=== PATIENT | female | born 1940 | race Caucasian/White ===

== ENCOUNTER 2018-03-25 00:57 | Inpatient (IN) | payer MEDICARE, BC ==
[2018-03-25] MEDS ORDERED: PROVENTIL 2.5 MG/3 ML NEB IH ONE ×2 (01:13→01:24)
--- NOTE | 2018-03-25 01:13 | ERPHSYRPT ---
- History of Present Illness Time Seen by Provider: 03/25/18 01:03 Source: patient, EMS Exam Limitations: no limitations Physician History: The patient is a 77-year-old female with her brought in by ambulance from home where she has had worsening shortness of breath for one week. She uses supplemental oxygen at night. When the ambulance arrived she was satting 90% but hardly able to speak. She complained of chest tightness before calling the ambulance. She states she has been fighting this shortness of breath for the last week. EMS gave her a DuoNeb treatment, albuterol treatment, 2 sublingual nitroglycerin, Lasix 40 mg IV, and Solu-Medrol 125 mg IV. Her chest tightness has completely resolved. Her past medical history is significant for COPD, CHF, HTN, A. fib, and diabetes. Timing/Duration: week(s), gradual onset, worse Activities at Onset: none Severity of Dyspnea-Max: severe Severity of Dyspnea-Current: moderate Possible Cause: occasional episodes (but) Modifying Factors: Improves With: activity, albuterol inhaler, albuterol nebulizer, lying down, oxygen Associated Symptoms: chest pain/discomfort, wheezing, ankle swelling, leg swelling Allergies/Adverse Reactions: No Known Drug Allergies Allergy (Unverified 03/25/18 02:39) - Review of Systems Constitutional: No Fever, No Chills Eyes: No Symptoms Ears, Nose, & Throat: No Symptoms Respiratory: Dyspnea, Dyspnea on Exertion ([place]GADO), Wheezing Cardiac: No Chest Pain, No Edema, No Syncope Abdominal/Gastrointestinal: No Abdominal Pain, No Nausea, No Vomiting, No Diarrhea Genitourinary Symptoms: No Dysuria Musculoskeletal: No Back Pain, No Neck Pain Skin: No Rash Neurological: No Dizziness, No Focal Weakness, No Sensory Changes Psychological: No Symptoms Endocrine: No Symptoms Hematologic/Lymphatic: No Symptoms Immunological/Allergic: No Symptoms All Other Systems: Reviewed and Negative - Nursing Vital Signs Nursing Vital Signs: Initial Vital Signs Pulse Rate 68 03/25/18 01:36 Respiratory Rate 20 03/25/18 01:36 O2 Sat by Pulse Oximetry 93 L 03/25/18 01:36 Pain Scale Pain Intensity 0 - Physical Exam General Appearance: mild distress, alert, obese Eye Exam: PERRL/EOMI Ears, Nose, Throat Exam: hearing grossly normal Neck Exam: normal inspection, supple Respiratory Exam: prolonged expirations, wheezing Cardiovascular/Chest Exam: normal heart sounds, regular rate/rhythm Abdominal/Gastrointestinal Exam: soft, No tenderness, No distention, No mass Rectal Exam: not done Extremity Exam: non-tender, normal range of motion, normal inspection, no calf tenderness, no pedal edema Neurologic Exam: alert, oriented x 3, cooperative, pesticide applicator II-XII nml as tested, sensation nml, No motor deficits Skin Exam: normal color, warm, No dry SpO2 Interpretation: normal Oxygen Delivery: Room Air - Course EKG Interpreted by Me: RATE, Sinus Rhythm, NORMAL AXIS, NORMAL INTERVALS, NORMAL QRS, NORMAL ST-T, Other (no change compared to EKG from 03/04/13.) - Radiology Exams Chest X-ray Interpretation: Interpreted by me, Other (AP chest shows pulmonary congestion, no comps) Ordered Tests: Active Orders 24 hr Category Date Time Status Gum Puller STAT Care 03/25/18 01:15 Active EKG-ER Only STAT Care 03/25/18 01:13 Active IV Insertion STAT Care 03/25/18 01:13 Active Oxygen-ED Only NASAL CANNULA 3 lpm Care 03/25/18 01:13 Active Pulse Oximetry (ED) STAT Care 03/25/18 01:13 Active CHEST 1 VIEW (PORTABLE) Stat Exams 03/25/18 01:30 Taken ARTERIAL BLOOD GASES Stat Lab 03/25/18 01:38 Results CBC W DIFF Stat Lab 03/25/18 01:40 Completed CMP Stat Lab 03/25/18 01:40 Completed Lactic Acid Stat Lab 03/25/18 01:38 Results NT PRO BNP Stat Lab 03/25/18 01:40 Completed TROPONIN Q3H Lab 03/25/18 01:40 Completed TROPONIN Q3H Lab 03/25/18 01:40 Received TROPONIN Q3H Lab 03/25/18 04:15 Ordered TROPONIN Q3H Lab 03/25/18 07:15 Ordered TROPONIN Q3H Lab 03/25/18 13:15 Ordered Respiratory Nebulizer STAT RT 03/25/18 01:15 Completed Respiratory Therapy Assessment DAILY RT 03/25/18 01:36 Completed Medication Summary Discontinued Medications Generic Name Dose Route Start Last Admin Trade Name Freq PRN Reason Stop Dose Admin Albuterol Sulfate 2.5 mg 03/25/18 01:13 03/25/18 01:33 Proventil 2.5 Mg/3 Ml Neb IH 03/25/18 01:14 2.5 mg STAT ONE Administration Albuterol Sulfate Confirm 03/25/18 01:24 Proventil 2.5 Mg/3 Ml Neb Administered 03/25/18 01:25 Dose 2.5 mg IH .STK-MED ONE Lab/Rad Data: Laboratory Result Diagrams 03/25/18 01:40 03/25/18 01:40 Laboratory Results 03/25/18 03/25/18 03/25/18 Range/Units 01:40 01:40 01:40 WBC 12.9 H (4.0-10.5) K/mm3 RBC 4.25 (4.1-5.4) M/mm3 Hgb 11.6 L (12.0-16.0) gm/dl Hct 37.8 (35-47) % MCV 88.9 (78-100) fl MCH 27.2 (26-32) pg MCHC 30.7 L (32-36) g/dl RDW 13.8 (11.5-14.0) % Plt Count 296 (150-450) K/mm3 MPV 10.0 H (6-9.5) fl Gran % 87.8 H (36.0-66.0) % Eos # (Auto) 0.19 (0-0.5) Absolute Lymphs (auto) 0.88 L (1.0-4.6) Absolute Monos (auto) 0.47 (0.0-1.3) Lymphocytes % 6.8 L (24.0-44.0) % Monocytes % 3.7 (0.0-12.0) % Eosinophils % 1.5 (0.00-5.0) % Basophils % 0.2 (0.0-0.4) % Absolute Granulocytes 11.28 H (1.4-6.9) Basophils # 0.03 (0-0.4) Puncture Site pCO2 (35-45) mmHg pO2 (75-100) mmHg Base Excess (-2.0-2.0) O2 Saturation (94-100) g/dF ABG pH (7.35-7.45) ABG HCO3 (22-28) ABG O2 Sat (Measured) (95-100) % Hussain Test A-a Gradient a/A Ratio Hemoglobin Carboxyhemoglobin (0.0-6.9) % THgb Methemoglobin (1.4-1.5) % Potassium 4.3 (3.5-5.1) Temperature C POC O2 Flow Rate % Sodium 140 (137-145) mmol/L Chloride 96 L (98-107) mmol/L Carbon Dioxide 35 H (22-30) mmol/L Anion Gap 13.2 (5-15) MEQ/L BUN 23 H (7-17) mg/dL Creatinine 0.94 (0.52-1.04) mg/dL Estimated GFR > 60.0 ML/MIN Glucose 199 H (74-106) mg/dL Lactic Acid (0.4-2.0) Calcium 9.7 (8.4-10.2) mg/dL Total Bilirubin 0.60 (0.2-1.3) mg/dL AST 16 (14-36) U/L ALT 13 (0-35) U/L Alkaline Phosphatase 45 (38-126) U/L Troponin I < 0.012 (0.000-0.034) ng/mL NT-Pro-B Natriuret Pep 3410 H (0-1800) pg/mL Serum Total Protein 6.6 (6.3-8.2) g/dL Albumin 4.1 (3.5-5.0) g/dL 03/25/18 Range/Units 01:38 WBC (4.0-10.5) K/mm3 RBC (4.1-5.4) M/mm3 Hgb (12.0-16.0) gm/dl Hct (35-47) % MCV (78-100) fl MCH (26-32) pg MCHC (32-36) g/dl RDW (11.5-14.0) % Plt Count (150-450) K/mm3 MPV (6-9.5) fl Gran % (36.0-66.0) % Eos # (Auto) (0-0.5) Absolute Lymphs (auto) (1.0-4.6) Absolute Monos (auto) (0.0-1.3) Lymphocytes % (24.0-44.0) % Monocytes % (0.0-12.0) % Eosinophils % (0.00-5.0) % Basophils % (0.0-0.4) % Absolute Granulocytes (1.4-6.9) Basophils # (0-0.4) Puncture Site Pending pCO2 59 H (35-45) mmHg pO2 67 L (75-100) mmHg Base Excess 12.6 H (-2.0-2.0) O2 Saturation 92.3 L (94-100) g/dF ABG pH 7.43 (7.35-7.45) ABG HCO3 39.2 H* (22-28) ABG O2 Sat (Measured) 95.8 (95-100) % Hussain Test Pending A-a Gradient 59 a/A Ratio 0.53 Hemoglobin 12.0 Carboxyhemoglobin 2.9 (0.0-6.9) % THgb Methemoglobin 0.8 L (1.4-1.5) % Potassium 4.1 (3.5-5.1) Temperature 37.0 C POC O2 Flow Rate 28 % Sodium (137-145) mmol/L Chloride (98-107) mmol/L Carbon Dioxide (22-30) mmol/L Anion Gap (5-15) MEQ/L BUN (7-17) mg/dL Creatinine (0.52-1.04) mg/dL Estimated GFR ML/MIN Glucose (74-106) mg/dL Lactic Acid 1.2 (0.4-2.0) Calcium (8.4-10.2) mg/dL Total Bilirubin (0.2-1.3) mg/dL AST (14-36) U/L ALT (0-35) U/L Alkaline Phosphatase (38-126) U/L Troponin I (0.000-0.034) ng/mL NT-Pro-B Natriuret Pep (0-1800) pg/mL Serum Total Protein (6.3-8.2) g/dL Albumin (3.5-5.0) g/dL - Progress Progress: improved Air Movement: fair Blood Culture(s) Obtained: Yes Antibiotics given: Yes Discussed with : El Will see patient in: hospital (full admit) Counseled pt/family regarding: lab results, diagnosis, rad results - Departure Time of Disposition: 02:38 Departure Disposition: Home Clinical Impression: CHF (congestive heart failure) Condition: Good Critical Care Time: No Referrals: ADA TOBIN [Primary Care Provider] - Instructions: Heart Failure
[2018-03-25 01:55] LABS: BASOPHIL % 0.2 % (0.0-0.4); Basophil (Absolute #) 0.03 (0-0.4); Eosinophil % 1.5 % (0.00-5.0); Eosinophil (Absolute #) 0.19 (0-0.5); Granulocyte Absolute (ANC) 11.28 (1.4-6.9); Granulocytes % 87.8 % (36.0-66.0); Hematocrit 37.8 % (35-47); Hemoglobin 11.6 gm/dl (12.0-16.0); Lymphocyte (Absolute #) 0.88 (1.0-4.6); Lymphocytes % 6.8 % (24.0-44.0); Mean Cell Volume 88.9 fl (78-100); Mean Corpuscular Hgb Concent. 30.7 g/dl (32-36); Monocyte (Absolute #) 0.47 (0.0-1.3); Monocytes % 3.7 % (0.0-12.0); Platelet Count 296 K/mm3 (150-450); Red Blood Count 4.25 M/mm3 (4.1-5.4); Red Cell Distribution Width 13.8 % (11.5-14.0); White Blood Count 12.9 K/mm3 (4.0-10.5)
[2018-03-25 01:57] LABS: A-aADO2 59; ABG POTASSIUM 4.1 (3.5-5.1); ARTERIAL BLD GAS O2 SATURATION 95.8 % (95-100); ARTERIAL BLOOD GAS BASE EXCESS 12.6 (-2.0-2.0); ARTERIAL BLOOD GAS FIO2 28 %; ARTERIAL BLOOD GAS PCO2 59 mmHg (35-45); ARTERIAL BLOOD GAS PO2 67 mmHg (75-100); ARTERIAL BLOOD GAS pH 7.43 (7.35-7.45); CARBOXYHEMOGLOBIN 2.9 % THgb (0.0-6.9); HCO3- 39.2 (22-28); HGB O2 SAT 92.3 g/dF (94-100); Lactic Acid 1.2 (0.4-2.0); Methhemoglobin 0.8 % (1.4-1.5); paO2 pAO1 0.53
[2018-03-25 01:59] LABS: Mean Corpuscular Hemoglobin 27.2 pg (26-32)
[2018-03-25 02:26] LABS: ALBUMIN 4.1 g/dL (3.5-5.0); ALKALINE PHOSPHATASE 45 U/L (38-126); ANION GAP 13.2 MEQ/L (5-15); BLOOD UREA NITROGEN 23 mg/dL (7-17); CHLORIDE 96 mmol/L (98-107); Calcium 9.7 mg/dL (8.4-10.2); Carbon Dioxide 35 mmol/L (22-30); Creatinine 1 0.94 mg/dL (0.52-1.04); Glucose 199 mg/dL (74-106); NT PRO BNP 3410 pg/mL (0-1800); Potassium 4.3 mmol/L (3.5-5.1); SGOT/AST 16 U/L (14-36); SGPT/ALT 13 U/L (0-35); SODIUM 140 mmol/L (137-145); Total Protein 6.6 g/dL (6.3-8.2)
[2018-03-25] MEDS ORDERED: ROCEPHIN 1 Gm-D5w 50 ml Bag** 1 G/50 ML IVPB IV STA (02:38)
[2018-03-25] MEDS ORDERED: ROCEPHIN 1 Gm-D5w 50 ml Bag** 1 G/50 ML IVPB IV ONE (02:43)
[2018-03-25] MEDS ORDERED: TYLENOL 325 MG PO PRN (03:41)
[2018-03-25] MEDS ORDERED: Zofran 4 MG/2 ML VIAL IV PRN (03:41)
[2018-03-25] MEDS ORDERED: DUONEB 0.5-3 MG/3 ml Neb IH SCH (03:41)
[2018-03-25] MEDS ORDERED: PROVENTIL 2.5 MG/3 ML NEB IH SCH (03:41)
[2018-03-25] MEDS ORDERED: PROVENTIL 2.5 MG/3 ML NEB IH PRN (04:11)
[2018-03-25 04:47] LABS: Hematocrit 38.1 % (35-47); Hemoglobin 11.6 gm/dl (12.0-16.0); Mean Cell Volume 89.4 fl (78-100); Mean Corpuscular Hemoglobin 27.2 pg (26-32); Mean Corpuscular Hgb Concent. 30.4 g/dl (32-36); Mean Platelet Volume 9.9 fl (6-9.5); Platelet Count 269 K/mm3 (150-450); Red Blood Count 4.26 M/mm3 (4.1-5.4); Red Cell Distribution Width 13.7 % (11.5-14.0)
[2018-03-25 05:38] LABS: ANION GAP 14.2 MEQ/L (5-15); BLOOD UREA NITROGEN 24 mg/dL (7-17); CHLORIDE 94 mmol/L (98-107); Calcium 9.7 mg/dL (8.4-10.2); Carbon Dioxide 36 mmol/L (22-30); Creatinine 1 0.94 mg/dL (0.52-1.04); Glucose 230 mg/dL (74-106); Potassium 4.4 mmol/L (3.5-5.1); SODIUM 139 mmol/L (137-145)
[2018-03-25] MEDS: solu-MEDROL 125 MG IV SCH ×4 (05:49→23:34)
[2018-03-25] MEDS: Zithromax 500 MG/ 250 ML NaCl Premix 500 MG/250 ML IVPB IV SCH (06:37)
[2018-03-25] MEDS ORDERED: Spiriva 18 Mcg/Cap Inhaler IH ONE (08:47)
--- NOTE | 2018-03-25 09:13 | XRAY ---
Indication: Chest pain. Short of breath. Comparison: None Portable chest underinflated accentuating the cardiopulmonary structures with bilateral mid to lower lung infiltrates versus atelectasis. Bony thorax intact with mild osteopenia, degenerative changes, and lower thoracic kyphoplasty.
--- NOTE | 2018-03-25 09:18 | PCM.HP ---
History of Present Illness - Chief Complaint Chief Complaint: CHF History of Present Illness: is a 77 year old female with CHF and COPD on home O2 at 2L who came in to ER with SOB by ambulance last night. She saw me in office this week with increased LE edema and was supposed to take 80mg lasix (up from 40mg daily) for 3d. She did not, since she had some appointments in town, then she started feeling progressively worse. She cannot walk to the bathroom without being short of breath. In ER, her BNP was elevated over 3,000 and her lung XR looked congested. Unable to discern any infiltrate so she was also started on rocephin and zithromax. Given IV solumedrol and lasix in the ambulance. She told me she is supposed to wear a CPAP machine but she doesn't want to because it messes up her hair. - Review of Systems Constitutional: Fatigue, Weakness, No Fever Respiratory: Cough, Short Of Breath Cardiac: Edema Genitourinary Symptoms: Frequency Musculoskeletal: Arthralgias, Back Pain (recent rib fx) Psychological: Anxiety All Other Systems: Reviewed and Negative Medications & Allergies Home Medications: Home Medication List Amlodipine Besylate 5 mg [Norvasc 5 mg] 5 mg PO HS 03/25/18 [History Confirmed 03/25/18] Apixaban [Eliquis] 5 mg PO BID 03/25/18 [History Confirmed 03/25/18] Atenolol 50 mg [Tenormin 50 mg] 50 mg PO DAILY 03/25/18 [History Confirmed 03/25/18] Cholecalciferol (Vitamin D3) [Vitamin D3] 1,000 unit PO DAILY 03/25/18 [History Confirmed 03/25/18] Escitalopram Oxalate 10 mg [Lexapro 10 MG] 20 mg PO DAILY 03/25/18 [History Confirmed 03/25/18] Fenofibric Acid (Choline) [Fenofibric Acid] 1 tab PO HS 03/25/18 [History Confirmed 03/25/18] Furosemide 40 mg [Lasix 40 MG] 40 mg PO DAILY 03/25/18 [History Confirmed 03/25/18] Lisinopril 20 mg [Zestril 20 MG] 20 mg PO DAILY 03/25/18 [History Confirmed 03/25/18] Magnesium Oxide 400 mg [Mag-Ox 400] 1 tab PO HS 03/25/18 [History Confirmed 03/25/18] Metformin HCl Xr 500 mg [Glucophage XR 500 MG] 1 tab PO DAILY 03/25/18 [ History Confirmed 03/25/18] Potassium Chloride 10 Meq Tab* [Klor Con 10 MEQ] 2 tablet PO DAILY 03/25/18 [ History Confirmed 03/25/18] Simvastatin 40 mg [Zocor 40 mg] 1 tablet PO HS 03/25/18 [History Confirmed 03/25] Allergies/Adverse Reactions: Allergies Allergy/AdvReac Type Severity Reaction Status Date / Time No Known Drug Allergies Allergy Verified 03/25/18 03:55 - Past Medical History Past Medical History: Yes Neurological History: Peripheral Neuropathy ENT History: Cataracts Cardiac History: Arrhythmia, Congestive Heart Failure, High Cholesterol, Hypertension Respiratory History: CHF, COPD Endocrine Medical History: Diabetes Type II Musculoskelatal History: Fractures, Osteoporosis GI Medical History: No Pertinent History History: No Pertinent History Pyscho-Social History: No Pertinent History Reproductive Disorders: No Pertinent History - Female History Hx Last Menstrual Period: menopausal - Past Surgical History Past Surgical History: Yes Neuro Surgical History: No Pertinent History Cardiac History: No Pertinent History Respiratory Surgery: No Pertinent History GI Surgical History: Cholecystectomy, Hernia Repair Genitourinary Surgical Hx: Other Musculskeletal Surgical Hx: Orthopedic Surgery Female Surgical History: Section Other Surgical History: back surgery; broken ribs with cement; Left wrist surgery; bladder tacted up - Social History Smoking Status: Never smoker Exposure to second hand smoke: Yes (hx of exposure- not) Alcohol: None Drug Use: none - Physical Exam Vital Signs: Vital Signs - 24 hr Temp Pulse Resp BP Pulse Ox 03/25/18 07:53 98 F 74 24 138/62 93 L 03/25/18 04:12 98.5 F 67 26 H 135/60 92 L 03/25/18 03:20 69 20 131/60 93 L 03/25/18 02:40 25 H 92 L 03/25/18 02:01 98.0 F 69 21 128/61 93 L 03/25/18 01:36 68 20 93 L Oxygen-Last 24 hours O2 Percentage 4 Liters = 36% O2 Percentage 4 Liters = 36% O2 Percentage 3 Liters = 32% O2 Percentage 3 Liters = 32% O2 Percentage 3 Liters = 32% O2 Percentage 3 Liters = 32% General Appearance: no apparent distress, alert Neurologic Exam: oriented x 3, cooperative Eye Exam: eyes nml inspection Ears, Nose, Throat Exam: moist mucous membranes Neck Exam: normal inspection, non-tender, No lymphadenopathy Respiratory Exam: diminished breath sounds, prolonged expirations, No crackles/ rales, No rhonchi, No wheezing Cardiovascular Exam: regular rate/rhythm, normal heart sounds, No murmur Gastrointestinal/Abdomen Exam: soft, normal bowel sounds, No tenderness, No distention, No mass, No guarding Back Exam: No CVA tenderness Extremity Exam: pedal edema, swelling (2+ pretibial edema bilat) Skin Exam: normal color, warm, dry, No rash Results - Labs Lab/Micro Results: Lab Results-Last 24 Hours 03/25/18 03/25/18 03/25/18 Range/Units 01:38 01:40 01:40 WBC 12.9 H (4.0-10.5) K/mm3 RBC 4.25 (4.1-5.4) M/mm3 Hgb 11.6 L (12.0-16.0) gm/dl Hct 37.8 (35-47) % MCV 88.9 (78-100) fl MCH 27.2 (26-32) pg MCHC 30.7 L (32-36) g/dl RDW 13.8 (11.5-14.0) % Plt Count 296 (150-450) K/mm3 MPV 10.0 H (6-9.5) fl Gran % 87.8 H (36.0-66.0) % Eos # (Auto) 0.19 (0-0.5) Absolute Lymphs (auto) 0.88 L (1.0-4.6) Absolute Monos (auto) 0.47 (0.0-1.3) Lymphocytes % 6.8 L (24.0-44.0) % Monocytes % 3.7 (0.0-12.0) % Eosinophils % 1.5 (0.00-5.0) % Basophils % 0.2 (0.0-0.4) % Absolute Granulocytes 11.28 H (1.4-6.9) Basophils # 0.03 (0-0.4) Puncture Site Pending pCO2 59 H (35-45) mmHg pO2 67 L (75-100) mmHg Base Excess 12.6 H (-2.0-2.0) O2 Saturation 92.3 L (94-100) g/dF ABG pH 7.43 (7.35-7.45) ABG HCO3 39.2 H* (22-28) ABG O2 Sat (Measured) 95.8 (95-100) % Hussain Test Pending A-a Gradient 59 a/A Ratio 0.53 Hemoglobin 12.0 Carboxyhemoglobin 2.9 (0.0-6.9) % THgb Methemoglobin 0.8 L (1.4-1.5) % Potassium 4.1 4.3 (3.5-5.1) Temperature 37.0 C POC O2 Flow Rate 28 % Sodium 140 (137-145) mmol/L Chloride 96 L (98-107) mmol/L Carbon Dioxide 35 H (22-30) mmol/L Anion Gap 13.2 (5-15) MEQ/L BUN 23 H (7-17) mg/dL Creatinine 0.94 (0.52-1.04) mg/dL Estimated GFR > 60.0 ML/MIN Glucose 199 H (74-106) mg/dL Lactic Acid 1.2 (0.4-2.0) Calcium 9.7 (8.4-10.2) mg/dL Total Bilirubin 0.60 (0.2-1.3) mg/dL AST 16 (14-36) U/L ALT 13 (0-35) U/L Alkaline Phosphatase 45 (38-126) U/L Troponin I (0.000-0.034) ng/mL NT-Pro-B Natriuret Pep 3410 H (0-1800) pg/mL Serum Total Protein 6.6 (6.3-8.2) g/dL Albumin 4.1 (3.5-5.0) g/dL 03/25/18 03/25/18 03/25/18 Range/Units 01:40 04:35 04:35 WBC 12.0 H (4.0-10.5) K/mm3 RBC 4.26 (4.1-5.4) M/mm3 Hgb 11.6 L (12.0-16.0) gm/dl Hct 38.1 (35-47) % MCV 89.4 (78-100) fl MCH 27.2 (26-32) pg MCHC 30.4 L (32-36) g/dl RDW 13.7 (11.5-14.0) % Plt Count 269 (150-450) K/mm3 MPV 9.9 H (6-9.5) fl Gran % (36.0-66.0) % Eos # (Auto) (0-0.5) Absolute Lymphs (auto) (1.0-4.6) Absolute Monos (auto) (0.0-1.3) Lymphocytes % (24.0-44.0) % Monocytes % (0.0-12.0) % Eosinophils % (0.00-5.0) % Basophils % (0.0-0.4) % Absolute Granulocytes (1.4-6.9) Basophils # (0-0.4) Puncture Site pCO2 (35-45) mmHg pO2 (75-100) mmHg Base Excess (-2.0-2.0) O2 Saturation (94-100) g/dF ABG pH (7.35-7.45) ABG HCO3 (22-28) ABG O2 Sat (Measured) (95-100) % Hussain Test A-a Gradient a/A Ratio Hemoglobin Carboxyhemoglobin (0.0-6.9) % THgb Methemoglobin (1.4-1.5) % Potassium (3.5-5.1) Temperature C POC O2 Flow Rate % Sodium (137-145) mmol/L Chloride (98-107) mmol/L Carbon Dioxide (22-30) mmol/L Anion Gap (5-15) MEQ/L BUN (7-17) mg/dL Creatinine (0.52-1.04) mg/dL Estimated GFR ML/MIN Glucose (74-106) mg/dL Lactic Acid (0.4-2.0) Calcium (8.4-10.2) mg/dL Total Bilirubin (0.2-1.3) mg/dL AST (14-36) U/L ALT (0-35) U/L Alkaline Phosphatase (38-126) U/L Troponin I < 0.012 < 0.012 (0.000-0.034) ng/mL NT-Pro-B Natriuret Pep (0-1800) pg/mL Serum Total Protein (6.3-8.2) g/dL Albumin (3.5-5.0) g/dL 03/25/18 03/25/18 Range/Units 04:35 07:02 WBC (4.0-10.5) K/mm3 RBC (4.1-5.4) M/mm3 Hgb (12.0-16.0) gm/dl Hct (35-47) % MCV (78-100) fl MCH (26-32) pg MCHC (32-36) g/dl RDW (11.5-14.0) % Plt Count (150-450) K/mm3 MPV (6-9.5) fl Gran % (36.0-66.0) % Eos # (Auto) (0-0.5) Absolute Lymphs (auto) (1.0-4.6) Absolute Monos (auto) (0.0-1.3) Lymphocytes % (24.0-44.0) % Monocytes % (0.0-12.0) % Eosinophils % (0.00-5.0) % Basophils % (0.0-0.4) % Absolute Granulocytes (1.4-6.9) Basophils # (0-0.4) Puncture Site pCO2 (35-45) mmHg pO2 (75-100) mmHg Base Excess (-2.0-2.0) O2 Saturation (94-100) g/dF ABG pH (7.35-7.45) ABG HCO3 (22-28) ABG O2 Sat (Measured) (95-100) % Hussain Test A-a Gradient a/A Ratio Hemoglobin Carboxyhemoglobin (0.0-6.9) % THgb Methemoglobin (1.4-1.5) % Potassium 4.4 (3.5-5.1) Temperature C POC O2 Flow Rate % Sodium 139 (137-145) mmol/L Chloride 94 L (98-107) mmol/L Carbon Dioxide 36 H (22-30) mmol/L Anion Gap 14.2 (5-15) MEQ/L BUN 24 H (7-17) mg/dL Creatinine 0.94 (0.52-1.04) mg/dL Estimated GFR > 60.0 ML/MIN Glucose 230 H (74-106) mg/dL Lactic Acid (0.4-2.0) Calcium 9.7 (8.4-10.2) mg/dL Total Bilirubin (0.2-1.3) mg/dL AST (14-36) U/L ALT (0-35) U/L Alkaline Phosphatase (38-126) U/L Troponin I < 0.012 (0.000-0.034) ng/mL NT-Pro-B Natriuret Pep (0-1800) pg/mL Serum Total Protein (6.3-8.2) g/dL Albumin (3.5-5.0) g/dL - Radiology Impressions Radiology Exams & Impressions: Radiology Procedures Category Date Time Status CHEST 1 VIEW (PORTABLE) Stat Exams 03/25/18 01:30 Taken CHEST 2 VIEWS (PA AND LAT) Routine Exams 03/26/18 Ordered - Other Procedures and Tests Respiratory Therapy 03/25/18 03:41 Oxygen NASAL CANNULA 3 lpm 03/25/18 04:40 RT Screen per Nursing Assess Assessment/Plan (1) CHF exacerbation Current Visit: Yes Status: Acute Assessment & Plan: We spoke at length about avoiding salt. and daughter are on board. Dietary consult today for same. I advised she should plan to stay through the weekend, particularly in light of her non compliance. Code(s): I50.9 - HEART FAILURE, UNSPECIFIED (2) COPD exacerbation Current Visit: Yes Status: Acute Assessment & Plan: On IV rocephin and zithromax. On 4L O2 (home dose 2L) Code(s): J44.1 - CHRONIC OBSTRUCTIVE PULMONARY DISEASE W (ACUTE) EXACERBATION (3) Obstructive sleep apnea Current Visit: Yes Status: Acute Assessment & Plan: Apparently, she has not had a cpap machine for years. will need OP sleep study. Code(s): G47.33 - OBSTRUCTIVE SLEEP APNEA (ADULT) (PEDIATRIC) (4) Diabetes mellitus Current Visit: Yes Status: Chronic Qualifiers: Diabetes mellitus type: type 2 Diabetes mellitus nursing home insulin use: without regional intermodal truck driver use Diabetes mellitus complication status: without complication Qualified Code(s): E11.9 - Type 2 diabetes mellitus without complications Code(s): E11.9 - TYPE 2 DIABETES MELLITUS WITHOUT COMPLICATIONS (5) Atrial fibrillation Current Visit: Yes Status: Chronic Qualifiers: Atrial fibrillation type: unspecified Qualified Code(s): I48.91 - Unspecified atrial fibrillation Assessment & Plan: On Eliquis Code(s): I48.91 - UNSPECIFIED ATRIAL FIBRILLATION
[2018-03-25] MEDS ORDERED: NON-FORMULARY ITEM (Cholecalciferol (Vitamin D3) [Vitamin D3] 1,000 UNIT) PO SCH (10:00)
[2018-03-25] MEDS ORDERED: Lasix 40 MG/4 ML IV SCH (10:00)
[2018-03-25] MEDS ORDERED: NON-FORMULARY ITEM (Apixaban [Eliquis] 5 MG) PO SCH (10:00)
[2018-03-25] MEDS: Lexapro 10 MG PO SCH (10:55)
[2018-03-25] MEDS: ELIQUIS 2.5 MG TABLET PO SCH ×2 (10:56→21:58)
[2018-03-25] MEDS: Zestril 20 MG PO SCH (10:57)
[2018-03-25] MEDS: TENORMIN 50 MG PO SCH (10:57)
[2018-03-25] MEDS: Klor Con 10 MEQ PO SCH (10:57)
[2018-03-25] MEDS: Lasix 40 MG/4 ML IV SCH (10:58)
[2018-03-25] MEDS: VITAMIN D PO SCH (11:06)
[2018-03-25] MEDS: NovoLOG Insulin SQ PRN ×3 (11:44→21:59)
[2018-03-25] MEDS: PATIENT OWN MEDICATION IH SCH (19:40)
[2018-03-25] MEDS: ROCEPHIN 1 Gm-D5w 50 ml Bag** 1 G/50 ML IVPB IV SCH (21:58)
[2018-03-25] MEDS: MAG-OX 400 PO SCH (21:58)
[2018-03-25] MEDS: Tricor 145 MG PO SCH (21:58)
[2018-03-25] MEDS: ZOCOR 20MG PO SCH (21:58)
[2018-03-25] MEDS: NORVASC 5 MG PO SCH (21:58)
[2018-03-25] MEDS: Tussionex Pennkinetic Susp PO PRN (21:59)
[2018-03-25] MEDS ORDERED: SIMVASTATIN 40 MG PO SCH (22:00)
[2018-03-25] MEDS ORDERED: FENOFIBRIC ACID PO SCH (22:00)
[2018-03-26 05:15] LABS: ABG SITE rr; ALLEN TEST OK? y
[2018-03-26 05:51] LABS: Granulocyte Absolute (ANC) 10.07 (1.4-6.9); Hemoglobin 11.1 gm/dl (12.0-16.0); Mean Cell Volume 88.7 fl (78-100); Mean Corpuscular Hemoglobin 27.3 pg (26-32); Mean Corpuscular Hgb Concent. 30.8 g/dl (32-36); Platelet Count 273 K/mm3 (150-450); Red Blood Count 4.06 M/mm3 (4.1-5.4); Red Cell Distribution Width 13.8 % (11.5-14.0); White Blood Count 10.6 K/mm3 (4.0-10.5)
[2018-03-26 06:13] LABS: ANION GAP 14.1 MEQ/L (5-15); Creatinine 1 1.28 mg/dL (0.52-1.04); Potassium 4.6 mmol/L (3.5-5.1)
[2018-03-26] MEDS: solu-MEDROL 125 MG IV SCH ×3 (06:17→21:35)
[2018-03-26] MEDS: NovoLOG Insulin SQ PRN ×2 (08:04→12:08)
[2018-03-26] MEDS: Spiriva 18 Mcg/Cap Inhaler IH SCH ×2 (08:08→09:00)
[2018-03-26] MEDS: PATIENT OWN MEDICATION IH SCH ×2 (08:09→18:40)
[2018-03-26 08:41] LABS: Slide Review 1 YES
[2018-03-26] MEDS: Lexapro 10 MG PO SCH (10:40)
[2018-03-26] MEDS: Zithromax 500 MG/ 250 ML NaCl Premix 500 MG/250 ML IVPB IV SCH (10:40)
[2018-03-26] MEDS: BUMEX 1 MG IV SCH ×2 (10:40→21:36)
[2018-03-26] MEDS: ELIQUIS 2.5 MG TABLET PO SCH ×2 (10:40→21:36)
[2018-03-26] MEDS: TENORMIN 50 MG PO SCH (10:40)
[2018-03-26] MEDS: VITAMIN D PO SCH (10:41)
[2018-03-26] MEDS: Zestril 20 MG PO SCH (10:41)
[2018-03-26] MEDS: Klor Con 10 MEQ PO SCH (10:41)
[2018-03-26] MEDS: Lantus Insulin SQ SCH (10:42)
[2018-03-26] MEDS: Lasix 40 MG/4 ML IV SCH (10:57)
[2018-03-26] MEDS ORDERED: PATIENT OWN MEDICATION IM ONE (11:15)
--- NOTE | 2018-03-26 13:03 | PCM.NOTE ---
Date and Time: 03/26/18 5812 Subjective Assessment: Patient reports she has not had much urine output with the IV lasix. She does have a cruz in and wants to keep this. She reports that her appetite has not been as good. She usually wears 2 L of oxygen at night. Dr. Bob is her health care aide.She has copd but no hx of smoking. She takes Eliquis for atrial fib. - Review of Systems Constitutional: No Symptoms Eyes: No Symptoms Ears, Nose, & Throat: No Symptoms Respiratory: Cough, Other (cough medication last night helped with cough) Cardiac: Edema Abdominal/Gastrointestinal: No Symptoms Genitourinary Symptoms: No Symptoms Musculoskeletal: No Symptoms Skin: No Symptoms Objective Exam General Appearance: no apparent distress, alert, other (on oxygen 4L by nasal cannula) Neurologic Exam: alert, cooperative, normal mood/affect Skin Exam: normal color, warm, dry, No rash Respiratory Exam: normal breath sounds, lungs clear, No crackles/rales, No rhonchi, No wheezing Cardiovascular Exam: regular rate/rhythm, normal heart sounds, No murmur, No friction rub, No gallop Gastrointestinal/Abdomen Exam: soft, normal bowel sounds, No tenderness, No distention Extremity Exam: other (+1 edema to mid shins, no c/c) OBJECTIVE DATA Vital Signs: Vital Signs - 24 hr Temp Pulse Resp BP Pulse Ox 03/26/18 12:00 97.5 F 58 L 20 128/57 97 03/26/18 10:40 63 03/26/18 08:09 66 20 95 03/26/18 08:00 98.2 F 61 19 147/65 95 03/26/18 04:00 98.8 F 53 L 32 H 100/65 94 L 03/26/18 00:00 99.0 F 73 24 124/67 97 03/25/18 21:56 58 L 22 96 03/25/18 20:00 98.6 F 64 19 146/65 97 03/25/18 16:00 98.7 F 64 22 121/60 98 Oxygen-Last 24 hours O2 Percentage 2 Liters = 28% O2 Percentage 4 Liters = 36% O2 Percentage 4 Liters = 36% O2 Percentage 4 Liters = 36% O2 Percentage 4 Liters = 36% Pain Assessment - Last Documented Pain Intensity 0 Pain Scale Used 0-10 Pain Scale Intake and Output: Intake & Output 03/24/18 03/25/18 03/26/18 03/27/18 06:59 06:59 06:59 06:59 Intake Total 100 680 Output Total 200 1025 Balance -100 -345 Weight 77.7 kg 77.1 kg Lab Results: Accuchecks Date 03/25/18 Time 16:30 Accucheck Value: 321 Accucheck Value: 214 Accucheck Value: 279 Accucheck Value: 253 Lab Results-Last 24 Hours 03/25/18 03/25/18 03/26/18 Range/Units 01:38 13:27 05:44 WBC 10.6 H (4.0-10.5) K/mm3 RBC 4.06 L (4.1-5.4) M/mm3 Hgb 11.1 L (12.0-16.0) gm/dl Hct 36.0 (35-47) % MCV 88.7 (78-100) fl MCH 27.3 (26-32) pg MCHC 30.8 L (32-36) g/dl RDW 13.8 (11.5-14.0) % Plt Count 273 (150-450) K/mm3 MPV 10.0 H (6-9.5) fl Absolute Granulocytes 10.07 H (1.4-6.9) Puncture Site rr Hussain Test y Sodium (137-145) mmol/L Potassium (3.5-5.1) mmol/L Chloride (98-107) mmol/L Carbon Dioxide (22-30) mmol/L Anion Gap (5-15) MEQ/L BUN (7-17) mg/dL Creatinine (0.52-1.04) mg/dL Estimated GFR ML/MIN Glucose (74-106) mg/dL Calcium (8.4-10.2) mg/dL Troponin I < 0.012 (0.000-0.034) ng/mL NT-Pro-B Natriuret Pep (0-1800) pg/mL Slides for Path Review YES 03/26/18 Range/Units 05:44 WBC (4.0-10.5) K/mm3 RBC (4.1-5.4) M/mm3 Hgb (12.0-16.0) gm/dl Hct (35-47) % MCV (78-100) fl MCH (26-32) pg MCHC (32-36) g/dl RDW (11.5-14.0) % Plt Count (150-450) K/mm3 MPV (6-9.5) fl Absolute Granulocytes (1.4-6.9) Puncture Site Hussain Test Sodium 137 (137-145) mmol/L Potassium 4.6 (3.5-5.1) mmol/L Chloride 90 L (98-107) mmol/L Carbon Dioxide 38 H (22-30) mmol/L Anion Gap 14.1 (5-15) MEQ/L BUN 39 H (7-17) mg/dL Creatinine 1.28 H (0.52-1.04) mg/dL Estimated GFR 42.9 ML/MIN Glucose 214 H (74-106) mg/dL Calcium 9.0 (8.4-10.2) mg/dL Troponin I (0.000-0.034) ng/mL NT-Pro-B Natriuret Pep 4850 H (0-1800) pg/mL Slides for Path Review Radiology Exams: Radiology Procedures Category Date Time Status CHEST 1 VIEW (PORTABLE) Stat Exams 03/25/18 01:30 Completed CHEST 2 VIEWS (PA AND LAT) Routine Exams 03/26/18 Ordered ECHO W/2D AND DOPPLER [US] Routine Exams 03/25/18 10:44 Taken Multi-Disciplinary Progress Notes: Multi-Disciplinary Progress Notes 03/26/18 11:08 Respiratory Note by Kelly Aguayo 1050 SPO2 4LPM 97%. PER DR WORTHINGTON TRY AND WEAN. DEC TO 2LPM Initialized on 03/26/18 11:08 - END OF NOTE Assessment/Plan (1) CHF exacerbation Current Visit: Yes Status: Acute Assessment & Plan: Echo done yesterday. Her can filling room sweeper, Dr. Arvizu, was consulted today and plans to see her. I am changing her lasix 80 mg daily IV to bumex 1 mg IV q12 hours. Continue to monitor ins and outs and daily weights. Code(s): I50.9 - HEART FAILURE, UNSPECIFIED (2) COPD exacerbation Current Visit: Yes Status: Acute Assessment & Plan: Lungs are clear, will wean steroids and try to wean oxygen. She is on antibiotics. Code(s): J44.1 - CHRONIC OBSTRUCTIVE PULMONARY DISEASE W (ACUTE) EXACERBATION (3) Atrial fibrillation Current Visit: Yes Status: Chronic Qualifiers: Atrial fibrillation type: unspecified Qualified Code(s): I48.91 - Unspecified atrial fibrillation Assessment & Plan: Currently controlled; continue Eliquis. Code(s): I48.91 - UNSPECIFIED ATRIAL FIBRILLATION (4) Diabetes mellitus Current Visit: Yes Status: Chronic Qualifiers: Diabetes mellitus type: type 2 Diabetes mellitus skilled nursing insulin use: without skilled nursing use Diabetes mellitus complication status: without complication Qualified Code(s): E11.9 - Type 2 diabetes mellitus without complications Assessment & Plan: Off of metformin due to hospitalization and blood glucoses high due to steroids so will start lantus 10 units daily. Code(s): E11.9 - TYPE 2 DIABETES MELLITUS WITHOUT COMPLICATIONS (5) Anemia Current Visit: Yes Status: Acute Code(s): D64.9 - ANEMIA, UNSPECIFIED
[2018-03-26] MEDS: ZOCOR 20MG PO SCH (21:35)
[2018-03-26] MEDS: NORVASC 5 MG PO SCH (21:36)
[2018-03-26] MEDS: Tricor 145 MG PO SCH (21:36)
[2018-03-26] MEDS: MAG-OX 400 PO SCH (21:36)
[2018-03-26] MEDS: ROCEPHIN 1 Gm-D5w 50 ml Bag** 1 G/50 ML IVPB IV SCH (21:37)
[2018-03-26] MEDS: Tussionex Pennkinetic Susp PO PRN (21:43)
[2018-03-27 05:44] LABS: Hematocrit 37.3 % (35-47); Hemoglobin 11.5 gm/dl (12.0-16.0); Mean Cell Volume 87.8 fl (78-100); Mean Corpuscular Hgb Concent. 30.8 g/dl (32-36); Mean Platelet Volume 10.2 fl (6-9.5); Platelet Count 304 K/mm3 (150-450); Red Blood Count 4.25 M/mm3 (4.1-5.4); Red Cell Distribution Width 13.9 % (11.5-14.0); White Blood Count 11.2 K/mm3 (4.0-10.5)
[2018-03-27 05:52] LABS: Creatinine 1 1.27 mg/dL (0.52-1.04); Potassium 4.7 mmol/L (3.5-5.1)
[2018-03-27 06:02] LABS: ANION GAP 14.7 MEQ/L (5-15)
[2018-03-27] MEDS: solu-MEDROL 125 MG IV SCH ×3 (06:38→22:19)
[2018-03-27] MEDS: PATIENT OWN MEDICATION IH SCH ×2 (07:14→19:11)
[2018-03-27] MEDS: Spiriva 18 Mcg/Cap Inhaler IH SCH (07:19)
[2018-03-27 07:22] LABS: Lymphocytes 4 % (24-44); Neutrophils 96 % (36.0-66.0); Platelet Estimate NORMAL (NORMAL); Total Cells Counted 100; Toxic Granulation 1+
[2018-03-27] MEDS: Klor Con 10 MEQ PO SCH (09:04)
[2018-03-27] MEDS: ELIQUIS 2.5 MG TABLET PO SCH ×2 (09:04→22:24)
[2018-03-27] MEDS: Zithromax 500 MG/ 250 ML NaCl Premix 500 MG/250 ML IVPB IV SCH (09:04)
[2018-03-27] MEDS: VITAMIN D PO SCH (09:04)
[2018-03-27] MEDS: Lexapro 10 MG PO SCH (09:04)
[2018-03-27] MEDS: TENORMIN 50 MG PO SCH (09:04)
[2018-03-27] MEDS: NovoLOG Insulin SQ PRN ×4 (09:05→22:21)
[2018-03-27] MEDS: BUMEX 1 MG IV SCH ×2 (09:05→22:20)
[2018-03-27] MEDS: Zestril 20 MG PO SCH (09:05)
[2018-03-27] MEDS: Lantus Insulin SQ SCH (09:05)
[2018-03-27] MEDS: Tussionex Pennkinetic Susp PO PRN ×2 (09:07→22:44)
[2018-03-27] MEDS ORDERED: SENOKOT 8.6 MG PO PRN (10:40)
--- NOTE | 2018-03-27 10:45 | PCM.NOTE ---
Date and Time: 03/27/18 1042 Subjective Assessment: She reports she continues to get short of breath earlier. She reports Dr. Arivzu told here that her lungs were the problem. He saw her but his dictated note has not been transcribed yet for me to read. She reports only a small stool. The cough medication is helping with her cough though. She reports trouble doing some of her housework at home and she would like help with this. She reports she thinks she has done cardiopulmonary rehab at [facility] before. - Review of Systems Constitutional: Fatigue Eyes: No Symptoms Ears, Nose, & Throat: No Symptoms Respiratory: Cough, Short Of Breath Cardiac: No Symptoms, Other (chest wall pain) Abdominal/Gastrointestinal: Constipation, No Nausea, No Vomiting, No Diarrhea Genitourinary Symptoms: No Symptoms Skin: Other (mild swelling) Objective Exam General Appearance: no apparent distress, alert, obese Neurologic Exam: alert, cooperative, normal mood/affect Skin Exam: normal color, warm, dry, No rash Respiratory Exam: normal breath sounds, lungs clear, other (distant breath sounds throughout), No crackles/rales, No wheezing Cardiovascular Exam: regular rate/rhythm, normal heart sounds, No murmur, No friction rub, No gallop Gastrointestinal/Abdomen Exam: soft, normal bowel sounds, No tenderness, No distention, No mass Extremity Exam: other (trace edema bilat, no c/c) OBJECTIVE DATA Vital Signs: Vital Signs - 24 hr Temp Pulse Resp BP BP Pulse Ox 03/27/18 09:04 96 H 145/82 03/27/18 08:00 98.7 F 65 18 145/82 96 03/27/18 07:22 66 20 97 03/27/18 04:00 98.1 F 61 19 130/57 96 03/27/18 00:00 98.0 F 62 18 141/66 95 03/26/18 20:00 98.9 F 53 L 17 126/56 97 03/26/18 18:40 76 18 96 03/26/18 16:00 98.2 F 69 18 136/59 95 03/26/18 12:00 97.5 F 58 L 20 128/57 97 Oxygen-Last 24 hours O2 Percentage 3 Liters = 32% O2 Percentage 3 Liters = 32% O2 Percentage 3 Liters = 32% O2 Percentage 3 Liters = 32% O2 Percentage 2 Liters = 28% Pain Assessment - Last Documented Pain Intensity 0 Pain Scale Used 0-10 Pain Scale Intake and Output: Intake & Output 03/25/18 03/26/18 03/27/18 03/28/18 06:59 06:59 06:59 06:59 Intake Total 100 680 360 Output Total 200 1025 1050 Balance -100 -962 -690 Weight 77.7 kg 77.1 kg 73 kg Lab Results: Accuchecks Date 03/27/18 Date 03/26/18 Time 08:00 Time 21:00 Accucheck Value: 201 Accucheck Value: 247 Accucheck Value: 186 Accucheck Value: 321 Lab Results-Last 24 Hours 03/27/18 03/27/18 Range/Units 05:10 05:10 WBC 11.2 H (4.0-10.5) K/mm3 RBC 4.25 (4.1-5.4) M/mm3 Hgb 11.5 L (12.0-16.0) gm/dl Hct 37.3 (35-47) % MCV 87.8 (78-100) fl MCH 27.0 (26-32) pg MCHC 30.8 L (32-36) g/dl RDW 13.9 (11.5-14.0) % Plt Count 304 (150-450) K/mm3 MPV 10.2 H (6-9.5) fl Segmented Neutrophils 96 H (36.0-66.0) % Lymphocytes (Manual) 4 L (24-44) % Toxic Granulation 1+ Platelet Estimate NORMAL (NORMAL) RBC Morphology NORMAL Sodium 137 (137-145) mmol/L Potassium 4.7 (3.5-5.1) mmol/L Chloride 89 L (98-107) mmol/L Carbon Dioxide 38 H (22-30) mmol/L Anion Gap 14.7 (5-15) MEQ/L BUN 52 H (7-17) mg/dL Creatinine 1.27 H (0.52-1.04) mg/dL Estimated GFR 43.3 ML/MIN Glucose 207 H (74-106) mg/dL Calcium 9.0 (8.4-10.2) mg/dL Radiology Exams: Radiology Procedures Category Date Time Status CHEST 2 VIEWS (PA AND LAT) Routine Exams 03/26/18 14:41 Taken ECHO W/2D AND DOPPLER [US] Routine Exams 03/25/18 10:44 Taken Multi-Disciplinary Progress Notes: Multi-Disciplinary Progress Notes 03/26/18 11:08 Respiratory Note by Kelly Aguayo 1050 SPO2 4LPM 97%. PER DR WORTHINGTON TRY AND WEAN. DEC TO 2LPM Initialized on 03/26/18 11:08 - END OF NOTE Assessment/Plan (1) CHF exacerbation Current Visit: Yes Status: Acute Assessment & Plan: Continue bumex; Dr. Arvizu saw her and I appreciate his input. Code(s): I50.9 - HEART FAILURE, UNSPECIFIED (2) COPD exacerbation Current Visit: Yes Status: Acute Assessment & Plan: Continue IV steroid and antibiotics. Code(s): J44.1 - CHRONIC OBSTRUCTIVE PULMONARY DISEASE W (ACUTE) EXACERBATION (3) Atrial fibrillation Current Visit: Yes Status: Chronic Qualifiers: Atrial fibrillation type: unspecified Qualified Code(s): I48.91 - Unspecified atrial fibrillation Code(s): I48.91 - UNSPECIFIED ATRIAL FIBRILLATION (4) Diabetes mellitus Current Visit: Yes Status: Chronic Qualifiers: Diabetes mellitus type: type 2 Diabetes mellitus long-term insulin use: without long-term use Diabetes mellitus complication status: without complication Qualified Code(s): E11.9 - Type 2 diabetes mellitus without complications Assessment & Plan: Lantus started yesterday. Continue with current treatment. Code(s): E11.9 - TYPE 2 DIABETES MELLITUS WITHOUT COMPLICATIONS (5) Anemia Current Visit: Yes Status: Acute Code(s): D64.9 - ANEMIA, UNSPECIFIED
[2018-03-27] MEDS: Miralax Powder 17GM PACKET PO SCH (11:31)
[2018-03-27] MEDS ORDERED: Colace 100 MG PO ONE (18:30)
[2018-03-27] MEDS: Advair Hfa 230/21 Mcg COMMON CANISTER IH SCH (19:22)
[2018-03-27] MEDS: Colace 100 MG PO SCH (22:17)
[2018-03-27] MEDS: ROCEPHIN 1 Gm-D5w 50 ml Bag** 1 G/50 ML IVPB IV SCH (22:21)
[2018-03-27] MEDS: MAG-OX 400 PO SCH (22:24)
[2018-03-27] MEDS: Tricor 145 MG PO SCH (22:25)
[2018-03-27] MEDS: ZOCOR 20MG PO SCH (22:25)
[2018-03-27] MEDS: NORVASC 5 MG PO SCH (22:25)
[2018-03-28 05:31] LABS: BASOPHIL % 0.1 % (0.0-0.4); Basophil (Absolute #) 0.01 (0-0.4); Eosinophil (Absolute #) 0 (0-0.5); Granulocyte Absolute (ANC) 7.86 (1.4-6.9); Granulocytes % 94.7 % (36.0-66.0); Hematocrit 35.7 % (35-47); Hemoglobin 10.9 gm/dl (12.0-16.0); Lymphocyte (Absolute #) 0.28 (1.0-4.6); Lymphocytes % 3.4 % (24.0-44.0); Mean Cell Volume 88.4 fl (78-100); Mean Corpuscular Hgb Concent. 30.5 g/dl (32-36); Mean Platelet Volume 10.1 fl (6-9.5); Monocyte (Absolute #) 0.15 (0.0-1.3); Monocytes % 1.8 % (0.0-12.0); Platelet Count 258 K/mm3 (150-450); Red Blood Count 4.04 M/mm3 (4.1-5.4); Red Cell Distribution Width 13.6 % (11.5-14.0); White Blood Count 8.3 K/mm3 (4.0-10.5)
[2018-03-28 05:41] LABS: Mean Corpuscular Hemoglobin 26.9 pg (26-32)
[2018-03-28 05:46] LABS: Calcium 8.7 mg/dL (8.4-10.2); Creatinine 1 1.24 mg/dL (0.52-1.04); Potassium 4.5 mmol/L (3.5-5.1)
[2018-03-28 06:02] LABS: ANION GAP 11.5 MEQ/L (5-15)
[2018-03-28] MEDS: solu-MEDROL 125 MG IV SCH (06:25)
[2018-03-28 06:32] LABS: Slide Review 1 YES
[2018-03-28] MEDS: Advair Hfa 230/21 Mcg COMMON CANISTER IH SCH (07:03)
[2018-03-28] MEDS: Spiriva 18 Mcg/Cap Inhaler IH SCH (07:03)
[2018-03-28 07:27] VITALS: BP 136/60; O2SAT 99
--- NOTE | 2018-03-28 08:26 | CONS ---
CONSULT DATE: 03/26/2018 BRIEF HISTORY: This is a 77 year-old female who was admitted because of progressive shortness of breath. The patient has been using oxygen at home but apparently is not able to obtain adequate saturation. She started to have some chest discomfort that she describes more of difficulty of breathing. She eventually ended up in the emergency room and subsequently admitted. She was given IV diuretics, steroids, and DuoNeb. The patient has a history of chronic obstructive pulmonary disease associated with moderate to severe pulmonary hypertension. She has had chronic atrial fibrillation for which she is anticoagulated. She has never had a myocardial infarction. CARDIAC RISK FACTORS: Positive for diabetes. Positive for hypertension. She does not smoke. She has history of hyperlipidemia. PAST SURGICAL HISTORY: Appendectomy. Cholecystectomy. Hernia surgery. section. Carpal tunnel surgery. CURRENT MEDICATIONS: Albuterol inhaler, Tussionex, Zofran, amlodipine, apixaban, Atenolol, Bumex, Vitamin D3. REVIEW OF SYSTEMS: PATIENTS TRANSPORTER: No history of stroke or seizure. RESPIRATORY: Chronic obstructive lung disease. Pulmonary hypertension. GI: Reflux symptoms. : Negative for dysuria or hematuria. 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 PERIPHERAL VASCULAR: No history of deep venous thrombosis. Chronically intermittent leg edema. SKIN: She has some rash in the lower extremities. HEMATOLOGY: No blood dyscrasia. SOCIAL HISTORY: She is . She has no significant alcohol intake. PHYSICAL EXAMINATION: Her blood pressure is 120/57, heart rate 65 in atrial fibrillation, respirations about 16. GENERAL: The patient is an elderly female who is alert, obese, who is less short of breath. HEENT: Slightly pale conjunctivae. NECK: No significant JVD. CHEST: The breath sounds are relatively clear with some rhonchi. No wheezing. CARDIAC: Heart tones are variable. The rhythm is atrial fibrillation. There is no audible gallop. ABDOMEN: Obese with normal bowel sounds. EXTREMITIES: There is trace edema. Decreased distal pulses. LAB DATA AND DIAGNOSTIC TESTS: BUN 24, creatinine 0.94. The glomerular filtration rate is greater than 60. Serial electrolytes are normal. Troponin I less than 0.012. ProBNP 3,410. IMPRESSION: In essence her: 1) Shortness of breath is most likely secondary to exacerbation of chronic obstructive pulmonary disease. The right-sided failure is most likely secondary to the pulmonary hypertension related to her chronic obstructive pulmonary disease. I agree with a short course of IV diuretics. 2) Hypertension: Continue current medical regimen. 3) Chronic atrial fibrillation: Continue with anticoagulation. 4) Diabetes. PLAN: I will review her echocardiogram and further recommendations will be made.
--- NOTE | 2018-03-28 08:34 | ECHO ---
Transthoracic echocardiographic examination and color Doppler was done on 03/26/2018. INDICATION: Congestive heart failure, atrial fibrillation. IMPRESSION: 1) NO REGIONAL WALL MOTION ABNORMALITY. ESTIMATED GLOBAL LEFT VENTRICULAR EJECTION FRACTION 60%. 2) MODERATE TRICUSPID REGURGITATION. RIGHT VENTRICULAR SYSTOLIC PRESSURE OF 62 MM OF MERCURY SUGGESTIVE OF MODERATE TO SEVERE PULMONARY HYPERTENSION. 3) MILD MITRAL REGURGITATION. 4) TRACE AORTIC REGURGITATION. 5) LEFT VENTRICULAR HYPERTROPHY. 6) LEFT ATRIAL ENLARGEMENT. 7) MILDLY DILATED RIGHT-SIDED CHAMBERS. 8) MILD PULMONARY INSUFFICIENCY. The left ventricle is visualized and demonstrated adequate motion of all the segments. Estimated global left ventricular ejection fraction around 60%. There is mild left ventricular hypertrophy. The mitral valve is heavily calcified particularly posterior leaflet. There is mild mitral regurgitation. Left atrium is enlarged. The aortic valve is sclerotic. There is no significant gradient across the aortic valve. There is trace aortic regurgitation. Right side chambers are mild to moderately dilated. There is mild tricuspid regurgitation with right ventricular systolic pressure of 62 mm of Mercury suggestive of moderate pulmonary hypertension. The right atrium is also enlarged. There is mild pulmonic insufficiency.
--- NOTE | 2018-03-28 09:02 | PCM.DCORD ---
- Discharge Discharge Date: 03/28/18 Disposition: Home, Self-Care Condition: Good Prescriptions: New Bumetanide 1 mg [Bumex 1 mg] 1 mg PO DAILY #30 tablet Cefdinir 300 mg PO BID #12 capsule Docusate Sodium 100 mg [Colace 100 MG] 100 mg PO BID #60 capsule Prednisone 20 mg [Deltasone 20 mg] 20 mg PO UD #10 tablet Polyethylene Glycol 3350 17 gm [Miralax Powder 17GM PACKET] 17 gm PO DAILY #30 packet Tiotropium Sloan Inhaler [Spiriva 18 Mcg/Cap Inhaler] 1 ea IH DAILY inh Budesonide/Formoterol Fumarate [Symbicort 160-4.5 Mcg Inhaler] 2 puffs IH BID #1 hfa.aer.ad Azithromycin 250 mg [Zithromax 250 MG TABLET] 250 mg PO DAILY #1 tablet Continue Lisinopril 20 mg [Zestril 20 MG] 20 mg PO DAILY Amlodipine Besylate 5 mg [Norvasc 5 mg] 5 mg PO HS Atenolol 50 mg [Tenormin 50 mg] 50 mg PO DAILY Escitalopram Oxalate 10 mg [Lexapro 10 MG] 20 mg PO DAILY Simvastatin 40 mg [Zocor 40 mg] 1 tablet PO HS Potassium Chloride 10 Meq Tab* [Klor Con 10 MEQ] 2 tablet PO DAILY Metformin HCl Xr 500 mg [Glucophage XR 500 MG] 1 tab PO DAILY Magnesium Oxide 400 mg [Mag-Ox 400] 1 tab PO HS Fenofibric Acid (Choline) [Fenofibric Acid] 1 tab PO HS Cholecalciferol (Vitamin D3) [Vitamin D3] 1,000 unit PO DAILY Apixaban [Eliquis] 5 mg PO BID Discontinued Furosemide 40 mg [Lasix 40 MG] 40 mg PO DAILY Follow up with: JOSE REEDER MD [NON-STAFF PHY W/O PRIVILEGES] - 1 Week SHANNON ROME [ACTIVE STAFF] - 1 Week ADA TOBIN [Primary Care Provider] - 04/05/18 10:30 am
[2018-03-28] MEDS: Zithromax 500 MG/ 250 ML NaCl Premix 500 MG/250 ML IVPB IV SCH (09:33)
[2018-03-28] MEDS: ELIQUIS 2.5 MG TABLET PO SCH (09:33)
[2018-03-28] MEDS: Klor Con 10 MEQ PO SCH (09:33)
[2018-03-28] MEDS: Miralax Powder 17GM PACKET PO SCH (09:33)
[2018-03-28] MEDS: Lexapro 10 MG PO SCH (09:33)
[2018-03-28] MEDS: TENORMIN 50 MG PO SCH (09:34)
[2018-03-28] MEDS: Zestril 20 MG PO SCH (09:35)
[2018-03-28] MEDS: Lantus Insulin SQ SCH (09:35)
[2018-03-28] MEDS: VITAMIN D PO SCH (09:35)
[2018-03-28] MEDS: Colace 100 MG PO SCH (09:35)
[2018-03-28] MEDS: BUMEX 1 MG IV SCH (09:38)
[2018-03-28 09:43] VITALS: PULSE 72
[2018-03-28] MEDS ORDERED: Colace 100 MG PO ONE ×2 (11:00→18:30)
[2018-03-28] MEDS: NovoLOG Insulin SQ PRN (12:28)
--- NOTE | 2018-03-30 11:52 | DS ---
DISCHARGE DIAGNOSES: 1) RIGHT-SIDED CONGESTIVE HEART FAILURE EXACERBATION. 2) CHRONIC OBSTRUCTIVE PULMONARY DISEASE EXACERBATION. 3) ATRIAL FIBRILLATION. 4) DIABETES MELLITUS TYPE 2. 5) ANEMIA. 6) PULMONARY HYPERTENSION. DISCHARGE PHYSICAL EXAMINATION: VITALS: Temperature current 98.5F, temperature max 98.5F, heart rate 54 to 72, respiratory rate 18 to 19, blood pressure 123 to 136 over 60 to 63. Discharge weight was 77 kg. Oxygen saturation 97 to 98% on 3 liters nasal cannula. GENERAL: The patient is a pleasant talkative sitting up in bed in no acute distress with oxygen 3 liters by nasal cannula in place. CVS: She has a regular rate and rhythm. No murmurs, gallops or rubs are appreciated. CHEST: Clear to auscultation bilaterally. No crackles or wheezes. ABDOMEN: Soft, nontender, nondistended with normal bowel sounds. EXTREMITIES: No clubbing, cyanosis or edema. She has EREN hose in place. HOSPITAL COURSE: 1) RIGHT-SIDED CONGESTIVE HEART FAILURE EXACERBATION: I changed her from IV Lasix to IV Bumex 1 mg IV daily. She seemed to have good diuresis with this and her symptoms seemed to improve. Dr. Arvizu saw her and read her echocardiogram. He diagnosed her with significant pulmonary hypertension due to the chronic obstructive pulmonary disease. I will have her follow up with Dr. Arvizu as an outpatient. 2) CHRONIC OBSTRUCTIVE PULMONARY DISEASE EXACERBATION: She was continued on IV steroids and IV antibiotics. At the time of discharge I gave her a prescription for one more day of azithromycin to finish a five day course and six days of Omnicef to finish a ten day course and oral prednisone on a tapering course over nine days. [address] Bob and I asked him to make an appointment for her to see him sooner than her scheduled appointment in June. She will need to continue her home oxygen. We discussed cardiopulmonary rehabilitation. At this time she was not interested. 3) ATRIAL FIBRILLATION: She was continued on anticoagulation with Eliquis and her rate was controlled during her hospitalization. 4) DIABETES MELLITUS TYPE 2: Her blood sugars were slightly higher with steroids. I started her on Lantus 10 units daily during the hospitalization. I will put her back on her regular dose of metformin at the time of discharge. 5) ANEMIA: This is chronic but stable during her hospitalization. DISCHARGE MEDICATIONS: Please see the discharge order. FOLLOW UP: She is to follow up with Dr. Bob, Sugar Cane Planter; Dr. Arvizu, Picc Nurse; and primary care doctor, Dr. Gallegos. DISPOSITION: The patient was discharged to home in fair condition.
--- NOTE | 2018-03-31 11:34 | XRAY ---
Indication: Short of breath. CHF. Comparison: March 25, 2018. PA/lateral chest unchanged again demonstrating bilateral mid-lower lung infiltrates versus atelectasis. Heart is upper limits normal. No new/acute cardiopulmonary abnormalities.
== END 2018-03-28 13:05 | disposition home or self-care (01) | DRG 292 ==
LOC: ED 00:57 → MED SURG 03:34
PROVIDERS: ADMIT Family Medicine; ATTEND Family Medicine
DX: I50.9 Heart failure, unspecified (principal); J44.1 Chronic obstructive pulmonary disease with (acute) exacerbation; I48.2 Chronic atrial fibrillation; Z99.81 Dependence on supplemental oxygen; Z79.4 Long term (current) use of insulin; D64.9 Anemia, unspecified; I27.20 Pulmonary hypertension, unspecified; R07.89 Other chest pain; Z79.01 Long term (current) use of anticoagulants; Z79.899 Other long term (current) drug therapy; G62.9 Polyneuropathy, unspecified; E78.5 Hyperlipidemia, unspecified; J44.9 Chronic obstructive pulmonary disease, unspecified; E78.00 Pure hypercholesterolemia, unspecified; M81.0 Age-related osteoporosis without current pathological fracture; I10 Essential (primary) hypertension; I48.91 Unspecified atrial fibrillation; E11.9 Type 2 diabetes mellitus without complications
CPT/HCPCS: 36415; 36600; 51702; 71045; 71046; 80048; 80053; 82375; 82803; 82962; 83605; 83880; 84484; 85025; 85027; 87040; 87086; 93005; 93041; 93306; 94640; 94760; 96365; 99285; J7609; 90662; G0008; J0456; J0696; J1940; J2930; A9270-GY

== ENCOUNTER 2018-07-22 11:51 | Observation (INO) | payer MEDICARE, BC ==
[2018-07-22] MEDS ORDERED: NITRO-BID 2% UD PACKETS TOP ONE (12:03)
[2018-07-22] MEDS ORDERED: BABY ASPIRIN 81 MG CHEW PO ONE (12:03)
[2018-07-22] MEDS ORDERED: Sodium Chloride 0.9% 1000 ML 1,000 ML IV SCH ×2 (12:15→15:35)
--- NOTE | 2018-07-22 12:33 | XRAY ---
Indication: Short of breath, dyspnea, and weakness. Comparison: March 26, 2018. Portable chest unchanged again with bilateral mid to lower lung discoid atelectasis/scarring, borderline cardiomegaly, osteopenia, bony degenerative changes, and thoracolumbar kyphoplasty. No new/acute cardiopulmonary abnormalities.
[2018-07-22 12:54] LABS: BASOPHIL % 0.4 % (0.0-0.4); Basophil (Absolute #) 0.04 (0-0.4); Eosinophil % 1.6 % (0.00-5.0); Eosinophil (Absolute #) 0.16 (0-0.5); Granulocyte Absolute (ANC) 8.35 (1.4-6.9); Granulocytes % 83.7 % (36.0-66.0); Hematocrit 36.1 % (35-47); Hemoglobin 11.1 gm/dl (12.0-16.0); Mean Cell Volume 91.4 fl (78-100); Mean Corpuscular Hemoglobin 28.1 pg (26-32); Mean Corpuscular Hgb Concent. 30.7 g/dl (32-36); Mean Platelet Volume 10.1 fl (6-9.5); Monocyte (Absolute #) 0.63 (0.0-1.3); Monocytes % 6.3 % (0.0-12.0); Platelet Count 274 K/mm3 (150-450); Red Blood Count 3.95 M/mm3 (4.1-5.4); Red Cell Distribution Width 14.6 % (11.5-14.0)
[2018-07-22] MEDS ORDERED: BABY ASPIRIN 81 MG CHEW ONE (12:55)
[2018-07-22] MEDS ORDERED: Sodium Chloride 0.9% 1000 ML 1,000 ML ONE (12:56)
[2018-07-22] MEDS ORDERED: NITRO-BID 2% UD PACKETS ONE (12:56)
[2018-07-22 12:59] LABS: INR 1.71 (0.8-3.0)
[2018-07-22 13:06] LABS: D-DIMER QUANTITATION < 215 ng/mL (215-500)
[2018-07-22 13:13] LABS: ALBUMIN 4.1 g/dL (3.5-5.0); BILIRUBIN,TOTAL 0.7 mg/dL (0.2-1.3); Calcium 9.3 mg/dL (8.4-10.2); Creatinine 1 1.06 mg/dL (0.52-1.04); Potassium 4.2 mmol/L (3.5-5.1)
[2018-07-22] MEDS ORDERED: DUONEB 0.5-3 MG/3 ml Neb IH ONE (13:20)
--- NOTE | 2018-07-22 14:16 | ERPHSYRPT ---
- History of Present Illness Time Seen by Provider: 07/22/18 12:20 Historian: patient Exam Limitations: clinical condition Patient Subjective Stated Complaint: short of breath and chest felt heavy yesterday but feels better today Triage Nursing Assessment: Pt was sent over by Dr. Gallegos due to the pt was short of breath yesterday and her chest felt heavy, she reports feeling better today but some shortness of breath, lungs clear, bilateral edema on lower extremeties, 2L NC, denies pain, doesn't appear to be in any distress Physician History: PATIENT WITH A HISTORY OF COPD, CORONARY ARTERY DISEASE, HYPERTENSION ATRIAL FIBRILLATION, AND TYPE 2 DIABETES COMPLAINS OF SUBSTERNAL CHEST PRESSURE HEAVINESS OVER PAST 2 DAYS. HAS HOME OXYGEN, DENIES CHEST PAIN UPON ARRIVAL TO EMERGENCY, RADIATION OF PAIN TO HER JAW, BACK OR ARMS. HAS OCCASIONAL COUGH, DENIES FEVER, CHILLS. Timing/Duration: yesterday Activities at Onset: none Quality: pressure, tightness Location: substernal Chest Pain Radiation: no radiation Severity of Pain-Max: moderate Severity of Pain-Current: none Modifying Factors: Improves With: movement Associated Symptoms: shortness of breath Prior Chest Pain/Cardiac Workup: stress test Nitro Today/Relief: provided by ED Aspirin Treatment Today: no aspirin today (UNABLE TO TAKE ASPIRIN) Allergies/Adverse Reactions: No Known Drug Allergies Allergy (Verified 07/22/18 12:21) Home Medications: Amlodipine Besylate 5 mg [Norvasc 5 mg] 5 mg PO HS 03/25/18 [History] Apixaban [Eliquis] 5 mg PO BID 03/25/18 [History] Atenolol 50 mg [Tenormin 50 mg] 50 mg PO DAILY 03/25/18 [History] Cholecalciferol (Vitamin D3) [Vitamin D3] 1,000 unit PO DAILY 03/25/18 [History] Escitalopram Oxalate 10 mg [Lexapro 10 MG] 20 mg PO DAILY 03/25/18 [History] Fenofibric Acid (Choline) [Fenofibric Acid] 1 tab PO HS 03/25/18 [History] Lisinopril 20 mg [Zestril 20 MG] 20 mg PO DAILY 03/25/18 [History] Magnesium Oxide 400 mg [Mag-Ox 400] 1 tab PO HS 03/25/18 [History] Metformin HCl Xr 500 mg [Glucophage XR 500 MG] 1 tab PO DAILY 03/25/18 [ History] Potassium Chloride 10 Meq Tab* [Klor Con 10 MEQ] 2 tablet PO DAILY 03/25/18 [ History] Simvastatin 40 mg [Zocor 40 mg] 1 tablet PO HS 03/25/18 [History] Bumetanide 1 mg [Bumex 1 mg] 0.5 mg PO DAILY 07/22/18 [History] Hx Tetanus, Diphtheria Vaccination/Date Given: Yes Hx Influenza Vaccination/Date Given: No Hx Pneumococcal Vaccination/Date Given: Yes - Review of Systems Constitutional: No Fever, No Chills Eyes: No Symptoms Ears, Nose, & Throat: No Symptoms Respiratory: Dyspnea on Exertion ([place]O), No Cough, No Dyspnea Cardiac: No Chest Pain, No Edema, No Syncope Abdominal/Gastrointestinal: No Symptoms, No Abdominal Pain, No Nausea, No Vomiting, No Diarrhea Genitourinary Symptoms: No Symptoms, No Dysuria Musculoskeletal: No Symptoms, No Back Pain, No Neck Pain Skin: No Symptoms, No Rash Neurological: No Dizziness, No Focal Weakness, No Sensory Changes Psychological: No Symptoms Endocrine: No Symptoms All Other Systems: Reviewed and Negative - Past Medical History Pertinent Past Medical History: Yes Neurological History: Peripheral Neuropathy ENT History: Cataracts Cardiac History: Arrhythmia, Congestive Heart Failure, High Cholesterol, Hypertension Respiratory History: CHF, COPD Endocrine Medical History: Diabetes Type II Musculoskeletal History: Fractures, Osteoporosis GI Medical History: No Pertinent History History: No Pertinent History Psycho-Social History: No Pertinent History Female Reproductive Disorders: No Pertinent History - Past Surgical History Past Surgical History: Yes Neuro Surgical History: No Pertinent History Cardiac: No Pertinent History Respiratory: No Pertinent History Gastrointestinal: Cholecystectomy, Hernia Repair Genitourinary: Other Musculoskeletal: Orthopedic Surgery Female Surgical History: Section Other Surgical History: back surgery; broken ribs with cement; Left wrist surgery; bladder tacted up - Social History Smoking Status: Never smoker Exposure to second hand smoke: Yes (hx of exposure- not) Drug Use: none Patient Lives Alone: No - Female History Hx Now: No - Nursing Vital Signs Nursing Vital Signs: Initial Vital Signs Temperature 98.1 F 07/22/18 12:08 Pulse Rate 61 07/22/18 12:08 Respiratory Rate 27 H 07/22/18 12:08 Blood Pressure 137/80 07/22/18 12:08 O2 Sat by Pulse Oximetry 98 07/22/18 12:08 Pain Scale Pain Intensity 0 - Physical Exam General Appearance: no apparent distress, alert Eye Exam: PERRL/EOMI, eyes nml inspection Ears, Nose, Throat Exam: normal ENT inspection, moist mucous membranes Neck Exam: normal inspection, non-tender, supple, full range of motion Respiratory Exam: lungs clear, diminished breath sounds (AT BASES, NO WHEEZES OR RHONCHI), No respiratory distress Cardiovascular Exam: regular rate/rhythm, normal heart sounds Gastrointestinal/Abdomen Exam: soft, normal bowel sounds, No tenderness, No mass Back Exam: normal inspection, No CVA tenderness, No vertebral tenderness Extremity Exam: normal inspection, normal range of motion Neurologic Exam: alert, oriented x 3, cooperative, normal mood/affect, sensation nml, No motor deficits Skin Exam: normal color, warm, dry SpO2 Interpretation: normal SpO2: 98 - Course EKG Interpreted by Me: RATE, A-fib (RATE 57,), NORMAL AXIS - Radiology Exams Chest X-ray Interpretation: Discussed w/ radiologist (BILATERAL MID TO LOWER LUNG DISCOID ATELECTASIS/SCARRING, BORDERLINE CARDIOMEGALY) Ordered Tests: Active Orders 24 hr Category Date Time Status Adoption Counselor STAT Care 07/22/18 12:04 Active EKG-ER Only STAT Care 07/22/18 12:03 Active IV Insertion STAT Care 07/22/18 12:03 Active Oxygen-ED Only Nasal Cannula 2 lpm Care 07/22/18 12:03 Active CHEST 1 VIEW (PORTABLE) Stat Exams 07/22/18 12:03 Completed CBC W DIFF Stat Lab 07/22/18 12:03 Completed CMP Stat Lab 07/22/18 12:45 Completed D-DIMER QUANTITATION Stat Lab 07/22/18 12:45 Completed NT PRO BNP Stat Lab 07/22/18 12:45 Completed PROTIME WITH INR Stat Lab 07/22/18 12:45 Completed TROPONIN Q3H Lab 07/22/18 12:45 Completed TROPONIN Q3H Lab 07/22/18 15:15 Ordered TROPONIN Q3H Lab 07/22/18 18:15 Ordered TROPONIN Q3H Lab 07/22/18 21:15 Ordered TROPONIN Q3H Lab 07/23/18 00:15 Ordered UA W/RFX UR CULTURE Stat Lab 07/22/18 12:04 Uncollected Respiratory Therapy Assessment DAILY RT 07/22/18 14:00 Completed Medication Summary Generic Name Dose Route Start Last Admin Trade Name Venuq PRN Reason Stop Dose Admin Sodium Chloride 1,000 mls @ 50 mls/hr 07/22/18 12:15 07/22/18 13:04 Sodium Chloride 0.9% 1000 Ml IV 08/21/18 12:14 50 mls/hr .Q20H BESSIE Administration Discontinued Medications Generic Name Dose Route Start Last Admin Trade Name Freq PRN Reason Stop Dose Admin Albuterol/Ipratropium 3 ml 07/22/18 13:20 07/22/18 14:00 Duoneb 0.5-3 Mg/3 Ml Neb IH 07/22/18 13:21 3 ml STAT ONE Administration Aspirin 324 mg 07/22/18 12:03 07/22/18 13:16 Baby Aspirin 81 Mg Chew PO 07/22/18 12:04 Not Given STAT ONE Aspirin Confirm 07/22/18 12:55 Baby Aspirin 81 Mg Chew Administered 07/22/18 12:56 Dose 324 mg .ROUTE .STK-MED ONE Nitroglycerin 1 gm 07/22/18 12:03 07/22/18 13:03 Nitro-Bid 2% Ud Packets TOP 07/22/18 12:04 1 gm STAT ONE Administration Nitroglycerin Confirm 07/22/18 12:56 Nitro-Bid 2% Ud Packets Administered 07/22/18 12:57 Dose 1 gm .ROUTE .STK-MED ONE Lab/Rad Data: Laboratory Result Diagrams 07/22/18 12:03 07/22/18 12:45 Laboratory Results 07/22/18 07/22/18 07/22/18 Range/Units 12:45 12:45 12:45 WBC (4.0-10.5) K/mm3 RBC (4.1-5.4) M/mm3 Hgb (12.0-16.0) gm/dl Hct (35-47) % MCV (78-100) fl MCH (26-32) pg MCHC (32-36) g/dl RDW (11.5-14.0) % Plt Count (150-450) K/mm3 MPV (6-9.5) fl Gran % (36.0-66.0) % Eos # (Auto) (0-0.5) Absolute Lymphs (auto) (1.0-4.6) Absolute Monos (auto) (0.0-1.3) Lymphocytes % (24.0-44.0) % Monocytes % (0.0-12.0) % Eosinophils % (0.00-5.0) % Basophils % (0.0-0.4) % Absolute Granulocytes (1.4-6.9) Basophils # (0-0.4) PT 20.0 H (9.95-12.35) SECONDS INR 1.71 (0.8-3.0) D-Dimer < 215 L (215-500) ng/mL Sodium 139 (137-145) mmol/L Potassium 4.2 (3.5-5.1) mmol/L Chloride 97 L (98-107) mmol/L Carbon Dioxide 33 H (22-30) mmol/L Anion Gap 14.0 (5-15) MEQ/L BUN 23 H (7-17) mg/dL Creatinine 1.06 H (0.52-1.04) mg/dL Estimated GFR 53.3 ML/MIN Glucose 130 H (74-106) mg/dL Calcium 9.3 (8.4-10.2) mg/dL Total Bilirubin 0.70 (0.2-1.3) mg/dL AST 21 (14-36) U/L ALT 12 (0-35) U/L Alkaline Phosphatase 35 L (38-126) U/L Troponin I < 0.012 (0.000-0.034) ng/mL NT-Pro-B Natriuret Pep 3700 H (0-1800) pg/mL Serum Total Protein 7.0 (6.3-8.2) g/dL Albumin 4.1 (3.5-5.0) g/dL 07/22/18 Range/Units 12:03 WBC 10.0 (4.0-10.5) K/mm3 RBC 3.95 L (4.1-5.4) M/mm3 Hgb 11.1 L (12.0-16.0) gm/dl Hct 36.1 (35-47) % MCV 91.4 (78-100) fl MCH 28.1 (26-32) pg MCHC 30.7 L (32-36) g/dl RDW 14.6 H (11.5-14.0) % Plt Count 274 (150-450) K/mm3 MPV 10.1 H (6-9.5) fl Gran % 83.7 H (36.0-66.0) % Eos # (Auto) 0.16 (0-0.5) Absolute Lymphs (auto) 0.80 L (1.0-4.6) Absolute Monos (auto) 0.63 (0.0-1.3) Lymphocytes % 8.0 L (24.0-44.0) % Monocytes % 6.3 (0.0-12.0) % Eosinophils % 1.6 (0.00-5.0) % Basophils % 0.4 (0.0-0.4) % Absolute Granulocytes 8.35 H (1.4-6.9) Basophils # 0.04 (0-0.4) PT (9.95-12.35) SECONDS INR (0.8-3.0) D-Dimer (215-500) ng/mL Sodium (137-145) mmol/L Potassium (3.5-5.1) mmol/L Chloride (98-107) mmol/L Carbon Dioxide (22-30) mmol/L Anion Gap (5-15) MEQ/L BUN (7-17) mg/dL Creatinine (0.52-1.04) mg/dL Estimated GFR ML/MIN Glucose (74-106) mg/dL Calcium (8.4-10.2) mg/dL Total Bilirubin (0.2-1.3) mg/dL AST (14-36) U/L ALT (0-35) U/L Alkaline Phosphatase (38-126) U/L Troponin I (0.000-0.034) ng/mL NT-Pro-B Natriuret Pep (0-1800) pg/mL Serum Total Protein (6.3-8.2) g/dL Albumin (3.5-5.0) g/dL - Progress Progress Note: 07/22/18 14:18 ADMINISTERED NITROPASTE 1" ANTERIOR CHEST WALL, DUO NEB AEROSOL TX Discussed with Dr.: Gallegos (DISCUSSED WITH DR GALLEGOS [id number] FOR OBSERVATION) - Departure Time of Disposition: 14:23 Departure Disposition: Observation Clinical Impression: ACUTE CHEST PAIN, EXACERBATION COPD Condition: Stable Critical Care Time: No Referrals: ADA GALLEGOS [Primary Care Provider] -
[2018-07-22 14:41] LABS: Appearance CLEAR (CLEAR); Bacteria RARE /HPF (NEGATIVE); Bilirubin NEGATIVE (NEGATIVE); Blood NEGATIVE Ery/ul (0-5); Epithelial Cells RARE /HPF (FEW); Glucose NEGATIVE (NEGATIVE); Ketones NEGATIVE (NEGATIVE); Leukocyte Esterase TRACE (NEGATIVE); Nitrite NEGATIVE (NEGATIVE); Protein,Urine Dip NEGATIVE (Negative); Specific Gravity 1.015 (1.005-1.025); Urobilinogen NEGATIVE mg/dL (0-1)
[2018-07-22] MEDS ORDERED: Levofloxacin 500MG/100ML D5W 500 MG/100 ML BAG IV ONE (14:52)
[2018-07-22] MEDS ORDERED: Levofloxacin 500MG/100ML D5W 500 MG/100 ML BAG IV STA (14:52)
[2018-07-22] MEDS ORDERED: DUONEB 0.5-3 MG/3 ml Neb IH SCH (15:35)
[2018-07-22] MEDS ORDERED: TYLENOL 325 MG PO PRN (15:35)
[2018-07-22] MEDS ORDERED: NovoLOG Insulin SQ PRN (16:23)
[2018-07-22] MEDS ORDERED: DUONEB 0.5-3 MG/3 ml Neb IH PRN (16:32)
[2018-07-22] MEDS: Glucophage 500 MG PO SCH (17:01)
[2018-07-22] MEDS: Advair Hfa 230/21 Mcg COMMON CANISTER IH SCH (19:20)
[2018-07-22] MEDS: ELIQUIS 2.5 MG TABLET PO SCH (21:24)
[2018-07-22] MEDS ORDERED: ZOCOR 20 MG PO SCH ×2 (22:00)
[2018-07-22] MEDS ORDERED: NORVASC 5 MG PO SCH (22:00)
[2018-07-22] MEDS ORDERED: ZETIA 10 MG PO SCH ×2 (22:00)
[2018-07-23] MEDS: ELIQUIS 2.5 MG TABLET PO SCH (09:36)
[2018-07-23] MEDS: Advair Hfa 230/21 Mcg COMMON CANISTER IH SCH (09:37)
[2018-07-23] MEDS ORDERED: BUMEX 1 MG PO SCH (10:00)
[2018-07-23] MEDS ORDERED: Zestril 20 MG PO SCH (10:00)
[2018-07-23] MEDS ORDERED: Lexapro 10 MG PO SCH (10:00)
[2018-07-23 11:13] VITALS: BP 135/64; PULSE 75; O2SAT 95
[2018-07-23] MEDS: Glucophage 500 MG PO SCH (11:38)
--- NOTE | 2018-07-23 12:42 | PCM.DS ---
Discharge Summary Date of Admission: 07/22/18 15:28 Admitting Physician: ADA TOBIN Primary Care Provider: ADA TOBIN Allergies Allergies No Known Drug Allergies Allergy (Verified 07/22/18 12:21) Hospital Summary - Hospital Course Hospital Course: Pt is 77 yo female pt of mine from [facility] with COPD, afib, CHF, and DM who was admitted yesterday through the ER with CP. She was seen by me in the office and sent to the ER for urgent evaluation. Her EKG showed afib at 73 bpm, no ST changes. Troponins are negative x 5. Of interest, she had an elevated BNP, but normal BUN/Cr, and no clinical or radiological signs of increased heart failure. The chest pressure was better with nitro patch. She will be discharged to home for f/u with cardiology (will send this report and office note from Wednesday to Dr. Arvizu) to see if he wants to see her sooner than . I will start her on imdur ER 30mg/d and will go ahead and give some nitrostat SL for her to have at home; will warn about signs and symptoms of hypotension. - Vitals & Intake/Output Vital Signs: Vital Signs Temperature 98.3 F 07/23/18 11:05 Pulse Rate 75 07/23/18 11:05 Respiratory Rate 20 07/23/18 11:05 Blood Pressure 135/64 07/23/18 11:05 O2 Sat by Pulse Oximetry 95 07/23/18 11:05 Oxygen-Last Documented O2 Percentage 2 Liters = 28% Intake & Output: Intake & Output 07/21/18 07/22/18 07/23/18 07/24/18 11:59 11:59 11:59 11:59 Intake Total 1389 Output Total 550 Balance 839 Weight 77.8 kg - Lab Result Diagrams: 07/22/18 12:03 07/22/18 12:45 Lab Results-Last 24 Hrs: Accuchecks Date 07/23/18 Date 07/23/18 Time 11:30 Time 07:30 Accucheck Value: 204 Accucheck Value: 131 Accucheck Value: 99 Lab Results-Last 24 Hours 07/22/18 07/22/18 07/22/18 Range/Units 12:03 12:45 12:45 WBC 10.0 (4.0-10.5) K/mm3 RBC 3.95 L (4.1-5.4) M/mm3 Hgb 11.1 L (12.0-16.0) gm/dl Hct 36.1 (35-47) % MCV 91.4 (78-100) fl MCH 28.1 (26-32) pg MCHC 30.7 L (32-36) g/dl RDW 14.6 H (11.5-14.0) % Plt Count 274 (150-450) K/mm3 MPV 10.1 H (6-9.5) fl Gran % 83.7 H (36.0-66.0) % Eos # (Auto) 0.16 (0-0.5) Absolute Lymphs (auto) 0.80 L (1.0-4.6) Absolute Monos (auto) 0.63 (0.0-1.3) Lymphocytes % 8.0 L (24.0-44.0) % Monocytes % 6.3 (0.0-12.0) % Eosinophils % 1.6 (0.00-5.0) % Basophils % 0.4 (0.0-0.4) % Absolute Granulocytes 8.35 H (1.4-6.9) Basophils # 0.04 (0-0.4) PT 20.0 H (9.95-12.35) SECONDS INR 1.71 (0.8-3.0) D-Dimer < 215 L (215-500) ng/mL Sodium 139 (137-145) mmol/L Potassium 4.2 (3.5-5.1) mmol/L Chloride 97 L (98-107) mmol/L Carbon Dioxide 33 H (22-30) mmol/L Anion Gap 14.0 (5-15) MEQ/L BUN 23 H (7-17) mg/dL Creatinine 1.06 H (0.52-1.04) mg/dL Estimated GFR 53.3 ML/MIN Glucose 130 H (74-106) mg/dL Hemoglobin A1c (4.5-6.0) % Calcium 9.3 (8.4-10.2) mg/dL Total Bilirubin 0.70 (0.2-1.3) mg/dL AST 21 (14-36) U/L ALT 12 (0-35) U/L Alkaline Phosphatase 35 L (38-126) U/L Troponin I (0.000-0.034) ng/mL NT-Pro-B Natriuret Pep 3700 H (0-1800) pg/mL Serum Total Protein 7.0 (6.3-8.2) g/dL Albumin 4.1 (3.5-5.0) g/dL Urine Color (YELLOW) Urine Appearance (CLEAR) Urine pH (5-6) Ur Specific [place] (1.005-1.025) Urine Protein (Negative) Urine Ketones (NEGATIVE) Urine Blood (0-5) Roly/ul Urine Nitrite (NEGATIVE) Urine Bilirubin (NEGATIVE) Urine Urobilinogen (0-1) mg/dL Ur Leukocyte Esterase (NEGATIVE) Urine WBC (Auto) (0-5) /HPF Urine RBC (Auto) (0-2) /HPF U Epithel Cells (Auto) (FEW) /HPF Urine Bacteria (Auto) (NEGATIVE) /HPF Urine Culture Reflexed (NO) Urine Glucose (NEGATIVE) mg/dL 07/22/18 07/22/18 07/22/18 Range/Units 12:45 14:27 15:24 WBC (4.0-10.5) K/mm3 RBC (4.1-5.4) M/mm3 Hgb (12.0-16.0) gm/dl Hct (35-47) % MCV (78-100) fl MCH (26-32) pg MCHC (32-36) g/dl RDW (11.5-14.0) % Plt Count (150-450) K/mm3 MPV (6-9.5) fl Gran % (36.0-66.0) % Eos # (Auto) (0-0.5) Absolute Lymphs (auto) (1.0-4.6) Absolute Monos (auto) (0.0-1.3) Lymphocytes % (24.0-44.0) % Monocytes % (0.0-12.0) % Eosinophils % (0.00-5.0) % Basophils % (0.0-0.4) % Absolute Granulocytes (1.4-6.9) Basophils # (0-0.4) PT (9.95-12.35) SECONDS INR (0.8-3.0) D-Dimer (215-500) ng/mL Sodium (137-145) mmol/L Potassium (3.5-5.1) mmol/L Chloride (98-107) mmol/L Carbon Dioxide (22-30) mmol/L Anion Gap (5-15) MEQ/L BUN (7-17) mg/dL Creatinine (0.52-1.04) mg/dL Estimated GFR ML/MIN Glucose (74-106) mg/dL Hemoglobin A1c (4.5-6.0) % Calcium (8.4-10.2) mg/dL Total Bilirubin (0.2-1.3) mg/dL AST (14-36) U/L ALT (0-35) U/L Alkaline Phosphatase (38-126) U/L Troponin I < 0.012 < 0.012 (0.000-0.034) ng/mL NT-Pro-B Natriuret Pep (0-1800) pg/mL Serum Total Protein (6.3-8.2) g/dL Albumin (3.5-5.0) g/dL Urine Color YELLOW (YELLOW) Urine Appearance CLEAR (CLEAR) Urine pH 7.0 (5-6) Ur Specific [place] 1.015 (1.005-1.025) Urine Protein NEGATIVE (Negative) Urine Ketones NEGATIVE (NEGATIVE) Urine Blood NEGATIVE (0-5) Roly/ul Urine Nitrite NEGATIVE (NEGATIVE) Urine Bilirubin NEGATIVE (NEGATIVE) Urine Urobilinogen NEGATIVE (0-1) mg/dL Ur Leukocyte Esterase TRACE (NEGATIVE) Urine WBC (Auto) 6-10 (0-5) /HPF Urine RBC (Auto) NONE (0-2) /HPF U Epithel Cells (Auto) RARE (FEW) /HPF Urine Bacteria (Auto) RARE (NEGATIVE) /HPF Urine Culture Reflexed NO (NO) Urine Glucose NEGATIVE (NEGATIVE) mg/dL 07/22/18 07/22/18 07/22/18 Range/Units 15:56 18:35 22:00 WBC (4.0-10.5) K/mm3 RBC (4.1-5.4) M/mm3 Hgb (12.0-16.0) gm/dl Hct (35-47) % MCV (78-100) fl MCH (26-32) pg MCHC (32-36) g/dl RDW (11.5-14.0) % Plt Count (150-450) K/mm3 MPV (6-9.5) fl Gran % (36.0-66.0) % Eos # (Auto) (0-0.5) Absolute Lymphs (auto) (1.0-4.6) Absolute Monos (auto) (0.0-1.3) Lymphocytes % (24.0-44.0) % Monocytes % (0.0-12.0) % Eosinophils % (0.00-5.0) % Basophils % (0.0-0.4) % Absolute Granulocytes (1.4-6.9) Basophils # (0-0.4) PT (9.95-12.35) SECONDS INR (0.8-3.0) D-Dimer (215-500) ng/mL Sodium (137-145) mmol/L Potassium (3.5-5.1) mmol/L Chloride (98-107) mmol/L Carbon Dioxide (22-30) mmol/L Anion Gap (5-15) MEQ/L BUN (7-17) mg/dL Creatinine (0.52-1.04) mg/dL Estimated GFR ML/MIN Glucose (74-106) mg/dL Hemoglobin A1c 7.04 H (4.5-6.0) % Calcium (8.4-10.2) mg/dL Total Bilirubin (0.2-1.3) mg/dL AST (14-36) U/L ALT (0-35) U/L Alkaline Phosphatase (38-126) U/L Troponin I < 0.012 < 0.012 (0.000-0.034) ng/mL NT-Pro-B Natriuret Pep (0-1800) pg/mL Serum Total Protein (6.3-8.2) g/dL Albumin (3.5-5.0) g/dL Urine Color (YELLOW) Urine Appearance (CLEAR) Urine pH (5-6) Ur Specific [place] (1.005-1.025) Urine Protein (Negative) Urine Ketones (NEGATIVE) Urine Blood (0-5) Roly/ul Urine Nitrite (NEGATIVE) Urine Bilirubin (NEGATIVE) Urine Urobilinogen (0-1) mg/dL Ur Leukocyte Esterase (NEGATIVE) Urine WBC (Auto) (0-5) /HPF Urine RBC (Auto) (0-2) /HPF U Epithel Cells (Auto) (FEW) /HPF Urine Bacteria (Auto) (NEGATIVE) /HPF Urine Culture Reflexed (NO) Urine Glucose (NEGATIVE) mg/dL 07/23/18 Range/Units 00:30 WBC (4.0-10.5) K/mm3 RBC (4.1-5.4) M/mm3 Hgb (12.0-16.0) gm/dl Hct (35-47) % MCV (78-100) fl MCH (26-32) pg MCHC (32-36) g/dl RDW (11.5-14.0) % Plt Count (150-450) K/mm3 MPV (6-9.5) fl Gran % (36.0-66.0) % Eos # (Auto) (0-0.5) Absolute Lymphs (auto) (1.0-4.6) Absolute Monos (auto) (0.0-1.3) Lymphocytes % (24.0-44.0) % Monocytes % (0.0-12.0) % Eosinophils % (0.00-5.0) % Basophils % (0.0-0.4) % Absolute Granulocytes (1.4-6.9) Basophils # (0-0.4) PT (9.95-12.35) SECONDS INR (0.8-3.0) D-Dimer (215-500) ng/mL Sodium (137-145) mmol/L Potassium (3.5-5.1) mmol/L Chloride (98-107) mmol/L Carbon Dioxide (22-30) mmol/L Anion Gap (5-15) MEQ/L BUN (7-17) mg/dL Creatinine (0.52-1.04) mg/dL Estimated GFR ML/MIN Glucose (74-106) mg/dL Hemoglobin A1c (4.5-6.0) % Calcium (8.4-10.2) mg/dL Total Bilirubin (0.2-1.3) mg/dL AST (14-36) U/L ALT (0-35) U/L Alkaline Phosphatase (38-126) U/L Troponin I < 0.012 (0.000-0.034) ng/mL NT-Pro-B Natriuret Pep (0-1800) pg/mL Serum Total Protein (6.3-8.2) g/dL Albumin (3.5-5.0) g/dL Urine Color (YELLOW) Urine Appearance (CLEAR) Urine pH (5-6) Ur Specific [place] (1.005-1.025) Urine Protein (Negative) Urine Ketones (NEGATIVE) Urine Blood (0-5) Roly/ul Urine Nitrite (NEGATIVE) Urine Bilirubin (NEGATIVE) Urine Urobilinogen (0-1) mg/dL Ur Leukocyte Esterase (NEGATIVE) Urine WBC (Auto) (0-5) /HPF Urine RBC (Auto) (0-2) /HPF U Epithel Cells (Auto) (FEW) /HPF Urine Bacteria (Auto) (NEGATIVE) /HPF Urine Culture Reflexed (NO) Urine Glucose (NEGATIVE) mg/dL Micro Results-Entire Visit: Accuchecks Date 07/23/18 Date 07/23/18 Time 11:30 Time 07:30 Accucheck Value: 204 Accucheck Value: 131 Accucheck Value: 99 - Radiology Exams Ordered Rad Exams-Entire Visit: Radiology Procedures Category Date Time Status CHEST 1 VIEW (PORTABLE) Stat Exams 07/22/18 12:03 Completed - Procedures and Test Procedures and Tests throughout Hospitalization: Therapy Orders & Screens 07/22/18 14:00 Respiratory Therapy Assessment DAILY Comment: Diagnosis: Shortness of Breath 07/22/18 15:35 Oxygen Nasal Cannula 2 lpm Comment: Diagnosis: Shortness of Breath 07/22/18 16:25 Respiratory Therapy Assessment DAILY Comment: Diagnosis: Shortness of Breath 07/22/18 20:00 EKG ONCE Comment: Diagnosis: Shortness of Breath Discharge Exam General Appearance: no apparent distress, obese Neurologic Exam: alert, oriented x 3, cooperative Skin Exam: normal color, warm, dry, No rash Respiratory Exam: lungs clear, diminished breath sounds (good air exchange), No crackles/rales, No rhonchi, No wheezing Cardiovascular Exam: normal heart sounds, irregular, No murmur Gastrointestinal/Abdomen Exam: soft, normal bowel sounds, No distention Extremity Exam: swelling (tr pretibial edema bilat) Back Exam: normal inspection, No rash Final Diagnosis/Problem List - Final Discharge Diagnosis/Problem (1) Chest pain Current Visit: Yes Status: Acute Assessment & Plan: Likely angina, but ruled out for NC. Will start Imdur 30mg ER daily. Could take SL nitro as well but will warn against hypotension. Advised go to ER if 3 nitro required. Our office to contact Dr. Arvizu Wednesday to see if he wants to see pt sooner than 08/05/18. (2) COPD (chronic obstructive pulmonary disease) Current Visit: Yes Status: Chronic Assessment & Plan: stable (3) Chronic hypoxemic respiratory failure Current Visit: Yes Status: Chronic (4) Chronic back pain Current Visit: Yes Status: Chronic Assessment & Plan: Our office is referring pt to pain management. (5) CHF (congestive heart failure) Current Visit: No Status: Chronic (6) Atrial fibrillation Current Visit: No Status: Chronic (7) Diabetes mellitus Current Visit: No Status: Chronic - Discharge Disposition: Home, Self-Care Condition: Stable Prescriptions: New Isosorbide Mononitrate [Isosorbide Mononitrate ER] 30 mg PO DAILY #30 tab.er.24h Nitroglycerin [Nitrostat] 0.4 mg SL DAILY PRN PRN #25 tab.subl PRN Reason: Chest Pain Continue Lisinopril 20 mg [Zestril 20 MG] 20 mg PO DAILY Amlodipine Besylate 5 mg [Norvasc 5 mg] 5 mg PO HS Atenolol 50 mg [Tenormin 50 mg] 50 mg PO LUNCH Escitalopram Oxalate 10 mg [Lexapro 10 MG] 20 mg PO LUNCH Simvastatin 40 mg [Zocor 40 mg] 1 tablet PO HS Potassium Chloride 10 Meq Tab* [Klor Con 10 MEQ] 2 tablet PO DAILY Metformin HCl Xr 500 mg [Glucophage XR 500 MG] 1 tab PO LUNCH Magnesium Oxide 400 mg [Mag-Ox 400] 1 tab PO HS Fenofibric Acid (Choline) [Fenofibric Acid] 1 tab PO HS Cholecalciferol (Vitamin D3) [Vitamin D3] 1,000 unit PO LUNCH Apixaban [Eliquis] 5 mg PO BID Tiotropium Geismar Inhaler [Spiriva 18 Mcg/Cap Inhaler] 1 ea IH DAILY inh Budesonide/Formoterol Fumarate [Symbicort 160-4.5 Mcg Inhaler] 2 puffs IH BID #1 hfa.aer.ad Bumetanide 1 mg [Bumex 1 mg] 1 mg PO DAILY Additional Instructions: Take the imdur (isosorbide mononitrate) every day. Keep track of your blood pressure; if it is falling below 110 on top, let your doctor know right away. If you are dizzy when you stand up, please stand slowly and let your doctor know right away (your blood pressure may be going too low). The nitrostat pills under the tongue may also decrease blood pressure, so do not take one if your blood pressure is less than 110 on the top - if your pressure if low and you have chest pain or pressure, go to the ER. Follow up with: ADA TOBIN [Primary Care Provider] - 1 Week
[2018-07-23] MEDS ORDERED: TENORMIN 50 MG PO SCH (14:15)
[2018-07-23] MEDS ORDERED: Klor Con 10 MEQ PO SCH (14:15)
[2018-07-23] MEDS ORDERED: FENOFIBRIC ACID PO SCH (22:00)
[2018-07-23] MEDS ORDERED: ZOCOR 20MG PO SCH (22:00)
[2018-07-23] MEDS ORDERED: Tricor 145 MG PO SCH (22:00)
[2018-07-23] MEDS ORDERED: MAG-OX 400 PO SCH (22:00)
[2018-07-23] MEDS ORDERED: SIMVASTATIN 40 MG PO SCH (22:00)
[2018-07-24] MEDS ORDERED: Spiriva 18 Mcg/Cap Inhaler IH SCH (10:00)
[2018-07-24] MEDS ORDERED: Lexapro 10 MG PO SCH (12:00)
== END 2018-07-23 13:55 | disposition home or self-care (01) ==
LOC: ED 11:51 → MED SURG 15:28
PROVIDERS: ADMIT Family Medicine; ATTEND Family Medicine
DX: R07.9 Chest pain, unspecified (principal); J44.1 Chronic obstructive pulmonary disease with (acute) exacerbation; J96.11 Chronic respiratory failure with hypoxia; M54.9 Dorsalgia, unspecified; G89.29 Other chronic pain; I50.9 Heart failure, unspecified; I48.91 Unspecified atrial fibrillation; E11.9 Type 2 diabetes mellitus without complications; Z79.899 Other long term (current) drug therapy; F41.9 Anxiety disorder, unspecified; G47.33 Obstructive sleep apnea (adult) (pediatric)
CPT/HCPCS: 36000; 36415; 71045; 80053; 81001; 82962; 83036; 83880; 84484; 85025; 85379; 85610; 93005; 93041; 93268; 94640; 94760; 94762; 96360; 96361; 96365; 99285; G0378; J1956; A9270-GY

== ENCOUNTER 2018-10-01 05:41 | Inpatient (IN) | payer MEDICARE, BC ==
[2018-10-01] MEDS ORDERED: LEVOFLOXACIN 750MG/150ML D5W 750 MG/150 ML BAG IV STA (06:10)
[2018-10-01] MEDS ORDERED: solu-MEDROL 125 MG IV ONE (06:10)
[2018-10-01] MEDS ORDERED: DUONEB 0.5-3 MG/3 ml Neb IH ONE ×2 (06:10→06:47)
[2018-10-01] MEDS ORDERED: LEVOFLOXACIN 750MG/150ML D5W 750 MG/150 ML BAG IV ONE (06:37)
[2018-10-01] MEDS ORDERED: solu-MEDROL 125 MG ONE (06:37)
--- NOTE | 2018-10-01 06:51 | ERPHSYRPT ---
- History of Present Illness Source: patient Exam Limitations: no limitations Patient Subjective Stated Complaint: Pt c/o increased sob overnight, pt was seen yesterday by pcp for "tightness in her lungs" and had outpatient labs and x -rays done yesterday. pt states she was admitted to [facility] for COPD and was dc'd 7 days ago. pt denies fever. Pt reports wearing o2 at 2lpm at home all the time, however she increased to 4 overnight to help. Triage Nursing Assessment: [place]/warm/dry, increased resp rate and effort, only able to speak 3-4 words at a time. pt brought in wheelchair from car, able to stand to bed. A&ox4. Timing/Duration: day(s) Activities at Onset: none Severity of Dyspnea-Max: moderate Severity of Dyspnea-Current: moderate Possible Cause: frequent episodes Modifying Factors: Improves With: albuterol inhaler, albuterol nebulizer, oxygen Associated Symptoms: cough, wheezing, productive cough Hx Tetanus, Diphtheria Vaccination/Date Given: No Hx Influenza Vaccination/Date Given: No Hx Pneumococcal Vaccination/Date Given: No Immunizations Up to Date: No <ANGELITO BAER - Last Filed: 10/01/18 06:46> <GERARDO DE LA ROSA - Last Filed: 10/01/18 12:49> - History of Present Illness Time Seen by Provider: 10/01/18 06:10 Physician History: Pt is a 78 y/o female that has a h/o COPD and is on 2 lit NC 28/12. She was not feeling well, and was SOB for the last few days, even though, she was d/c from [facility] about a week ago. She saw her PCP that gave her ABX injection and Zithromax. Pt states, that she had to increase her O2 to 4 lit now, and she is very SOB and still working on breathing. (ANGELITO BAER) Allergies/Adverse Reactions: No Known Drug Allergies Allergy (Verified 10/01/18 05:48) Home Medications: Alendronate Sodium 70 mg [Fosamax 70 MG] 70 mg PO WEEKLY 10/01/18 [History ] Amlodipine Besylate 5 mg PO DAILY 10/01/18 [History] Apixaban [Eliquis] 5 mg PO BID 10/01/18 [History] Budesonide/Formoterol Fumarate [Symbicort 160-4.5 Mcg Inhaler] 2 puff IH BID [History] Bumetanide 1 mg [Bumex 1 mg] 0.5 mg PO DAILY 10/01/18 [History] Cholecalciferol (Vitamin D3) [Vitamin D] 400 unit PO LUNCH 10/01/18 [History] Duloxetine HCl 30 mg [Cymbalta 30 MG Capsule] 30 mg PO LUNCH 10/01/18 [ History] Isosorbide Mononitrate 30 mg [Imdur 30 MG] 30 mg PO DAILY 10/01/18 [History ] Magnesium 200 mg PO LUNCH 10/01/18 [History] Metoprolol Tartrate 25 mg [Lopressor 25MG Tab] 25 mg PO DAILY 10/01/18 [ History] Potassium Chloride 10 Meq Tab* [Klor Con 10 MEQ] 20 meq PO DAILY 10/01/18 [ History] Simvastatin [Zocor] 40 mg PO HS 10/01/18 [History] Tiotropium [place] [Spiriva] 1 puff IH DAILY 10/01/18 [History] - Review of Systems Constitutional: Lethargy, Malaise Eyes: No Symptoms Ears, Nose, & Throat: No Symptoms Respiratory: Cough, Dyspnea, Dyspnea on Exertion (DELGADO), Wheezing Cardiac: No Chest Pain, No Edema, No Syncope Abdominal/Gastrointestinal: No Abdominal Pain, No Nausea, No Vomiting, No Diarrhea Genitourinary Symptoms: No Dysuria Musculoskeletal: No Back Pain, No Neck Pain Neurological: No Dizziness, No Focal Weakness, No Sensory Changes <ANGELITO BAER - Last Filed: 10/01/18 06:46> - Past Medical History Pertinent Past Medical History: Yes Neurological History: Peripheral Neuropathy ENT History: Cataracts Cardiac History: Arrhythmia, Congestive Heart Failure, High Cholesterol, Hypertension Respiratory History: CHF, COPD Endocrine Medical History: Diabetes Type II Musculoskeletal History: Fractures, Osteoporosis GI Medical History: No Pertinent History, Hernia History: Other Psycho-Social History: No Pertinent History Female Reproductive Disorders: No Pertinent History Other Medical History: 2017 fell injured kidney, fx vertebrae repaired with kyphoplasty - Past Surgical History Past Surgical History: Yes Neuro Surgical History: Other Cardiac: No Pertinent History Respiratory: No Pertinent History Gastrointestinal: Cholecystectomy, Hernia Repair Genitourinary: Other Musculoskeletal: Orthopedic Surgery Female Surgical History: Section Other Surgical History: back surgery; broken ribs with cement; Left wrist surgery; bladder and rectal prolapse - Social History Smoking Status: Never smoker Exposure to second hand smoke: Yes Drug Use: none Patient Lives Alone: No - Female History Hx Now: No <ANGELITO BAER - Last Filed: 10/01/18 06:46> - Physical Exam General Appearance: moderate distress Eye Exam: PERRL/EOMI Ears, Nose, Throat Exam: hearing grossly normal, normal ENT inspection Neck Exam: normal inspection, supple Respiratory Exam: respiratory distress, diminished breath sounds, accessory muscle use, rhonchi, wheezing Cardiovascular/Chest Exam: normal heart sounds, regular rate/rhythm Abdominal/Gastrointestinal Exam: soft, No tenderness, No distention, No mass Neurologic Exam: alert, oriented x 3, cooperative, film or videotape editor II-XII nml as tested, sensation nml, No motor deficits SpO2: 99 <ANGELITO BAER - Last Filed: 10/01/18 06:46> - Physical Exam SpO2 Interpretation: normal (99%) <GERARDO DE LA ROSA - Last Filed: 10/01/18 12:49> - Nursing Vital Signs Nursing Vital Signs: Initial Vital Signs Temperature 98.9 F 10/01/18 05:48 Pulse Rate 79 10/01/18 05:48 Respiratory Rate 32 H 10/01/18 05:48 Blood Pressure 163/87 10/01/18 05:48 O2 Sat by Pulse Oximetry 99 10/01/18 05:48 Pain Scale Pain Intensity 0 Ordered Tests: Active Orders 24 hr Category Date Time Status Bedrest with BRP/BSC ROUTINE Activity 10/01/18 10:37 Active Accucheck ACHS Care 10/01/18 10:37 Active Call Admit Doctor for Orders ON ADMISSION Care 10/01/18 10:37 Active Code Status Order ROUTINE Care 10/01/18 10:37 Active IV Care Q6H Care 10/01/18 10:[address] in Observation ROUTINE Care 10/01/18 10:37 Active Telemetry q6h Care 10/01/18 10:37 Active Weight,Daily 0600 Care 10/01/18 10:37 Active 1800 Calorie ADA Diet 10/01/18 Lunch Active CHEST 1 VIEW (PORTABLE) Stat Exams 10/01/18 06:12 Completed ARTERIAL BLOOD GASES Stat Lab 10/01/18 06:10 Completed BLOOD CULTURE Stat Lab 10/01/18 06:30 Received CBC W DIFF AM.LAB Lab 10/02/18 04:00 Ordered CBC W DIFF Stat Lab 10/01/18 06:30 Completed CMP AM.LAB Lab 10/02/18 04:00 Ordered CMP Stat Lab 10/01/18 06:30 Completed NT PRO BNP Stat Lab 10/01/18 06:30 Completed TROPONIN Q3H Lab 10/01/18 06:30 Completed TROPONIN Q3H Lab 10/01/18 09:15 Completed TROPONIN Q3H Lab 10/01/18 12:26 Received TROPONIN Q3H Lab 10/01/18 15:15 Ordered TROPONIN Q3H Lab 10/01/18 18:15 Ordered UA W/RFX UR CULTURE Stat Lab 10/01/18 07:46 Completed Pulse Oximetry CONTINUOUS RT 10/01/18 10:37 Active Respiratory Therapy Assessment DAILY RT 10/01/18 07:02 Completed Respiratory Therapy Assessment DAILY RT 10/01/18 09:09 Completed Transfer Order Routine Transfer 10/01/18 Completed Medication Summary Generic Name Dose Route Start Last Admin Trade Name Freq PRN Reason Stop Dose Admin Albuterol/Ipratropium 3 ml 10/01/18 10:37 Duoneb 0.5-3 Mg/3 Ml Neb IH 10/31/18 10:36 Q4HPRN PRN SHORTNESS OF BREATH/WHEEZING Amlodipine Besylate 5 mg 10/01/18 12:00 10/01/18 12:32 Norvasc 5 Mg PO 10/31/18 11:59 5 mg DAILY BESSIE Administration Apixaban 5 mg 10/01/18 12:00 10/01/18 12:30 Eliquis 2.5 Mg Tablet PO 10/31/18 11:59 5 mg BID BESSIE Administration Bumetanide 0.5 mg 10/01/18 12:00 10/01/18 12:30 Bumex 1 Mg PO 10/31/18 11:59 0.5 mg DAILY BESSIE Administration Duloxetine HCl 30 mg 10/01/18 12:00 10/01/18 12:30 Cymbalta 30 Mg Capsule PO 10/31/18 11:59 30 mg LUNCH BESSIE Administration Levofloxacin/Dextrose 250 mg in 50 mls @ 100 mls/hr 10/02/18 10:00 Levaquin 250mg/50ml D5w IV 11/01/18 09:59 Q24H10 BESSIE Insulin Aspart 0 unit 10/01/18 10:37 10/01/18 11:33 Novolog Insulin SQ 10/31/18 10:36 13 unit UD PRN Administration HYPERGLYCEMIA Isosorbide Mononitrate 30 mg 10/01/18 12:00 10/01/18 12:31 Imdur 30 Mg PO 10/31/18 11:59 30 mg DAILY BESSIE Administration Magnesium Oxide 200 mg 10/01/18 12:00 10/01/18 12:31 Mag-Ox 400 PO 10/31/18 11:59 200 mg LUNCH BESSIE Administration Methylprednisolone Sodium Succinate 80 mg 10/01/18 12:00 10/01/18 11:33 Solu-Medrol 125 Mg IV 10/31/18 11:59 80 mg Q6HT BESSIE Administration Metoprolol Tartrate 25 mg 10/01/18 12:00 10/01/18 12:31 Lopressor 25mg Tab PO 10/31/18 11:59 25 mg DAILY BESSIE Administration Potassium Chloride 20 meq 10/01/18 12:00 10/01/18 12:31 Klor Con 10 Meq PO 10/31/18 11:59 20 meq DAILY BESSIE Administration Fluticasone/Salmeterol 2 puff 10/01/18 19:00 Advair Hfa 230/21 Mcg Common Canister* IH 10/31/18 18:59 BIDRT BESSIE Simvastatin 40 mg 10/01/18 22:00 Zocor 20mg PO 10/31/18 21:59 HS BESSIE Tiotropium [place] 1 ea 10/01/18 12:00 Spiriva 18 Mcg/Cap Inhaler IH 10/31/18 11:59 DAILY BESSIE Discontinued Medications Generic Name Dose Route Start Last Admin Trade Name Freq PRN Reason Stop Dose Admin Albuterol Sulfate 2.5 mg 10/01/18 08:06 10/01/18 09:09 Proventil 2.5 Mg/3 Ml Neb IH 10/01/18 08:07 2.5 mg STAT ONE Administration Albuterol Sulfate Confirm 10/01/18 08:33 Proventil 2.5 Mg/3 Ml Neb Administered 10/01/18 08:34 Dose 2.5 mg IH .STK-MED ONE Albuterol/Ipratropium 3 ml 10/01/18 06:10 10/01/18 06:49 Duoneb 0.5-3 Mg/3 Ml Neb IH 10/01/18 06:11 3 ml STAT ONE Administration Albuterol/Ipratropium Confirm 10/01/18 06:47 Duoneb 0.5-3 Mg/3 Ml Neb Administered 10/01/18 06:48 Dose 3 ml IH .STK-MED ONE Levofloxacin/Dextrose 750 mg in 150 mls @ 100 mls/hr 10/01/18 06:10 10/01/18 06:37 Levofloxacin 750mg/150ml D5w IV 10/01/18 07:39 100 mls/hr STAT STA Administration Levofloxacin/Dextrose Confirm 10/01/18 06:37 Levofloxacin 750mg/150ml D5w Administered 10/01/18 06:38 Dose 750 mg in 150 mls @ ud IV .STK-MED ONE Methylprednisolone Sodium Succinate 125 mg 10/01/18 06:10 10/01/18 06:39 Solu-Medrol 125 Mg IV 10/01/18 06:11 125 mg STAT ONE Administration Methylprednisolone Sodium Succinate Confirm 10/01/18 06:37 Solu-Medrol 125 Mg Administered 10/01/18 06:38 Dose 125 mg .ROUTE .STK-MED ONE Miscellaneous Information 1 each 10/01/18 12:00 Medication Intervention 10/31/18 11:59 .RT TO CHECK ON [facility] Lab/Rad Data: Laboratory Result [facility] 10/01/18 06:30 10/01/18 06:30 Laboratory Results 10/01/18 10/01/18 10/01/18 Range/Units 09:15 07:46 06:30 WBC (4.0-10.5) K/mm3 RBC (4.1-5.4) M/mm3 Hgb (12.0-16.0) gm/dl Hct (35-47) % MCV (78-100) fl MCH (26-32) pg MCHC (32-36) g/dl RDW (11.5-14.0) % Plt Count (150-450) K/mm3 MPV (6-9.5) fl Gran % (36.0-66.0) % Eos # (Auto) (0-0.5) Absolute Lymphs (auto) (1.0-4.6) Absolute Monos (auto) (0.0-1.3) Lymphocytes % (24.0-44.0) % Monocytes % (0.0-12.0) % Eosinophils % (0.00-5.0) % Basophils % (0.0-0.4) % Absolute Granulocytes (1.4-6.9) Basophils # (0-0.4) Puncture Site pCO2 (35-45) mmHg pO2 (75-100) mmHg Base Excess (-2.0-2.0) O2 Saturation (94-100) g/dF ABG pH (7.35-7.45) ABG HCO3 (22-28) ABG O2 Sat (Measured) (95-100) % Hussain Test A-a Gradient a/A Ratio Hemoglobin Carboxyhemoglobin (0.0-6.9) % THgb Methemoglobin (1.4-1.5) % Potassium (3.5-5.1) Temperature C POC O2 Flow Rate % Sodium (137-145) mmol/L Chloride (98-107) mmol/L Carbon Dioxide (22-30) mmol/L Anion Gap (5-15) MEQ/L BUN (7-17) mg/dL Creatinine (0.52-1.04) mg/dL Estimated GFR ML/MIN Glucose (74-106) mg/dL Calcium (8.4-10.2) mg/dL Total Bilirubin (0.2-1.3) mg/dL AST (14-36) U/L ALT (0-35) U/L Alkaline Phosphatase (38-126) U/L Troponin I < 0.012 (0.000-0.034) ng/mL NT-Pro-B Natriuret Pep (0-1800) pg/mL Serum Total Protein (6.3-8.2) g/dL Albumin (3.5-5.0) g/dL Urine Color HEATHER (YELLOW) Urine Appearance CLEAR (CLEAR) Urine pH 5.0 (5-6) Ur Specific [place] 1.026 (1.005-1.025) Urine Protein 100 (Negative) Urine Ketones NEGATIVE (NEGATIVE) Urine Blood NEGATIVE (0-5) Roly/ul Urine Nitrite NEGATIVE (NEGATIVE) Urine Bilirubin NEGATIVE (NEGATIVE) Urine Urobilinogen NEGATIVE (0-1) mg/dL Ur Leukocyte Esterase NEGATIVE (NEGATIVE) Urine WBC (Auto) 3-5 (0-5) /HPF Urine RBC (Auto) 0-2 (0-2) /HPF U Hyaline Cast (Auto) 3-5 (0-2) /LPF U Epithel Cells (Auto) RARE (FEW) /HPF Urine Mucus (Auto) SLIGHT (NEGATIVE) /HPF Urine Culture Reflexed NO (NO) Urine Glucose NEGATIVE (NEGATIVE) mg/dL Influenza Type A Ag NEGATIVE (NEGATIVE) Influenza Type B Ag NEGATIVE (NEGATIVE) RSV (PCR) NEGATIVE (Negative) 10/01/18 10/01/18 10/01/18 Range/Units 06:30 06:30 06:30 WBC 9.7 (4.0-10.5) K/mm3 RBC 4.71 (4.1-5.4) M/mm3 Hgb 12.7 (12.0-16.0) gm/dl Hct 40.5 (35-47) % MCV 86.0 (78-100) fl MCH 27.0 (26-32) pg MCHC 31.4 L (32-36) g/dl RDW 14.0 (11.5-14.0) % Plt Count 197 (150-450) K/mm3 MPV 10.5 H (6-9.5) fl Gran % 78.7 H (36.0-66.0) % Eos # (Auto) 0.30 (0-0.5) Absolute Lymphs (auto) 0.70 L (1.0-4.6) Absolute Monos (auto) 1.03 (0.0-1.3) Lymphocytes % 7.2 L (24.0-44.0) % Monocytes % 10.6 (0.0-12.0) % Eosinophils % 3.1 (0.00-5.0) % Basophils % 0.4 (0.0-0.4) % Absolute Granulocytes 7.66 H (1.4-6.9) Basophils # 0.04 (0-0.4) Puncture Site pCO2 (35-45) mmHg pO2 (75-100) mmHg Base Excess (-2.0-2.0) O2 Saturation (94-100) g/dF ABG pH (7.35-7.45) ABG HCO3 (22-28) ABG O2 Sat (Measured) (95-100) % Hussain Test A-a Gradient a/A Ratio Hemoglobin Carboxyhemoglobin (0.0-6.9) % THgb Methemoglobin (1.4-1.5) % Potassium 3.8 (3.5-5.1) Temperature C POC O2 Flow Rate % Sodium 138 (137-145) mmol/L Chloride 93 L (98-107) mmol/L Carbon Dioxide 35 H (22-30) mmol/L Anion Gap 14.4 (5-15) MEQ/L BUN 20 H (7-17) mg/dL Creatinine 0.95 (0.52-1.04) mg/dL Estimated GFR > 60.0 ML/MIN Glucose 215 H (74-106) mg/dL Calcium 9.6 (8.4-10.2) mg/dL Total Bilirubin 0.50 (0.2-1.3) mg/dL AST 18 (14-36) U/L ALT 26 (0-35) U/L Alkaline Phosphatase 62 (38-126) U/L Troponin I < 0.012 (0.000-0.034) ng/mL NT-Pro-B Natriuret Pep 1610 (0-1800) pg/mL Serum Total Protein 6.8 (6.3-8.2) g/dL Albumin 3.8 (3.5-5.0) g/dL Urine Color (YELLOW) Urine Appearance (CLEAR) Urine pH (5-6) Ur Specific [place] (1.005-1.025) Urine Protein (Negative) Urine Ketones (NEGATIVE) Urine Blood (0-5) Roly/ul Urine Nitrite (NEGATIVE) Urine Bilirubin (NEGATIVE) Urine Urobilinogen (0-1) mg/dL Ur Leukocyte Esterase (NEGATIVE) Urine WBC (Auto) (0-5) /HPF Urine RBC (Auto) (0-2) /HPF U Hyaline Cast (Auto) (0-2) /LPF U Epithel Cells (Auto) (FEW) /HPF Urine Mucus (Auto) (NEGATIVE) /HPF Urine Culture Reflexed (NO) Urine Glucose (NEGATIVE) mg/dL Influenza Type A Ag (NEGATIVE) Influenza Type B Ag (NEGATIVE) RSV (PCR) (Negative) 10/01/18 Range/Units 06:10 WBC (4.0-10.5) K/mm3 RBC (4.1-5.4) M/mm3 Hgb (12.0-16.0) gm/dl Hct (35-47) % MCV (78-100) fl MCH (26-32) pg MCHC (32-36) g/dl RDW (11.5-14.0) % Plt Count (150-450) K/mm3 MPV (6-9.5) fl Gran % (36.0-66.0) % Eos # (Auto) (0-0.5) Absolute Lymphs (auto) (1.0-4.6) Absolute Monos (auto) (0.0-1.3) Lymphocytes % (24.0-44.0) % Monocytes % (0.0-12.0) % Eosinophils % (0.00-5.0) % Basophils % (0.0-0.4) % Absolute Granulocytes (1.4-6.9) Basophils # (0-0.4) Puncture Site RIGHT RADIAL pCO2 57 H (35-45) mmHg pO2 81 (75-100) mmHg Base Excess 10.5 H (-2.0-2.0) O2 Saturation 95.5 (94-100) g/dF ABG pH 7.42 (7.35-7.45) ABG HCO3 37.0 H* (22-28) ABG O2 Sat (Measured) 98.2 (95-100) % Hussain Test YES A-a Gradient 47 a/A Ratio 0.63 Hemoglobin 12.6 Carboxyhemoglobin 1.8 (0.0-6.9) % THgb Methemoglobin 0.9 L (1.4-1.5) % Potassium 3.4 L (3.5-5.1) Temperature 37.0 C POC O2 Flow Rate 28 % Sodium (137-145) mmol/L Chloride (98-107) mmol/L Carbon Dioxide (22-30) mmol/L Anion Gap (5-15) MEQ/L BUN (7-17) mg/dL Creatinine (0.52-1.04) mg/dL Estimated GFR ML/MIN Glucose (74-106) mg/dL Calcium (8.4-10.2) mg/dL Total Bilirubin (0.2-1.3) mg/dL AST (14-36) U/L ALT (0-35) U/L Alkaline Phosphatase (38-126) U/L Troponin I (0.000-0.034) ng/mL NT-Pro-B Natriuret Pep (0-1800) pg/mL Serum Total Protein (6.3-8.2) g/dL Albumin (3.5-5.0) g/dL Urine Color (YELLOW) Urine Appearance (CLEAR) Urine pH (5-6) Ur Specific [place] (1.005-1.025) Urine Protein (Negative) Urine Ketones (NEGATIVE) Urine Blood (0-5) Roly/ul Urine Nitrite (NEGATIVE) Urine Bilirubin (NEGATIVE) Urine Urobilinogen (0-1) mg/dL Ur Leukocyte Esterase (NEGATIVE) Urine WBC (Auto) (0-5) /HPF Urine RBC (Auto) (0-2) /HPF U Hyaline Cast (Auto) (0-2) /LPF U Epithel Cells (Auto) (FEW) /HPF Urine Mucus (Auto) (NEGATIVE) /HPF Urine Culture Reflexed (NO) Urine Glucose (NEGATIVE) mg/dL Influenza Type A Ag (NEGATIVE) Influenza Type B Ag (NEGATIVE) RSV (PCR) (Negative) <ANGELITO BAER - Last Filed: 10/01/18 06:46> - Progress Progress: improved Air Movement: fair <GERARDO DE LA ROSA - Last Filed: 10/01/18 12:49> - Progress Progress Note: 10/01/18 06:52 Pt was signed out to Dr De La Rosa. (ANGELITO BAER) 10/01/18 08:07 This is a 78-year-old white female with history of peripheral neuropathy, cataracts, arrhythmia, congestive heart failure, hyperlipidemia, high blood pressure, COPD, diabetes she arrives with complaints of feeling short of breath since yesterday she apparently had been seen by her family doctor with complaint of tightness in her lungs she states she has been short of breath all night long patient initially seen by Dr. Baer noted to have decreased breath sounds of rhonchi and wheezes throughout she was given Solu-Medrol, Levaquin, DuoNeb treatment patient remains said to be somewhat short of breath Past medical history includes peripheral neuropathy, cataracts, arrhythmia, congestive heart failure, hyperlipidemia, high blood pressure, COPD, diabetes Patient with an EKG remarkable for atrial fibrillation, 84 bpm, normal axis, no acute ST or T wave changes are noted Patient's chest x-ray no acute disease processes noted mild increased interstitial lung markings. CBC white blood cell 9.7 hemoglobin 12.7 hematocrit 40.5 platelets 197. Blood gases pH 7.42 PCO2 57 PO2 81 bicarbonate 37 saturation 95% Chemistry sodium 138 potassium 3.8 chloride 93 bicarbonate 35 BUN 20 creatinine 0.95 glucose 2:15. Troponin is normal at less than 0.017. BNP 1610. Impression COPD with exacerbation. Plan we'll give patient an albuterol treatment Will discuss case with Dr. Gallegos for possible placement on observation telemetry. 10/01/18 09:13 Case is discussed with Dr. Gallegos will place patient on observation telemetry diagnosis COPD with exacerbation and shortness of breath. (GERARDO DE LA ROSA) <ANGELITO BAER - Last Filed: 10/01/18 06:46> - Departure Departure Disposition: Observation Critical Care Time: No <GERARDO DE LA ROSA - Last Filed: 10/01/18 12:49> - Departure Clinical Impression: COPD with exacerbation, Shortness of breath Condition: Fair
[2018-10-01 06:52] LABS: BASOPHIL % 0.4 % (0.0-0.4); Basophil (Absolute #) 0.04 (0-0.4); Eosinophil % 3.1 % (0.00-5.0); Granulocyte Absolute (ANC) 7.66 (1.4-6.9); Granulocytes % 78.7 % (36.0-66.0); Hematocrit 40.5 % (35-47); Hemoglobin 12.7 gm/dl (12.0-16.0); Lymphocytes % 7.2 % (24.0-44.0); Mean Corpuscular Hgb Concent. 31.4 g/dl (32-36); Mean Platelet Volume 10.5 fl (6-9.5); Monocyte (Absolute #) 1.03 (0.0-1.3); Monocytes % 10.6 % (0.0-12.0); Platelet Count 197 K/mm3 (150-450); Red Blood Count 4.71 M/mm3 (4.1-5.4); White Blood Count 9.7 K/mm3 (4.0-10.5)
[2018-10-01 07:00] LABS: A-aADO2 47; ABG HEMOGLOBIN 12.6; ABG POTASSIUM 3.4 (3.5-5.1); ABG SITE RIGHT RADIAL; ALLEN TEST OK? YES; ARTERIAL BLD GAS O2 SATURATION 98.2 % (95-100); ARTERIAL BLOOD GAS BASE EXCESS 10.5 (-2.0-2.0); ARTERIAL BLOOD GAS FIO2 28 %; ARTERIAL BLOOD GAS PCO2 57 mmHg (35-45); ARTERIAL BLOOD GAS PO2 81 mmHg (75-100); ARTERIAL BLOOD GAS pH 7.42 (7.35-7.45); CARBOXYHEMOGLOBIN 1.8 % THgb (0.0-6.9); HGB O2 SAT 95.5 g/dF (94-100); Methhemoglobin 0.9 % (1.4-1.5); paO2 pAO1 0.63
[2018-10-01 07:35] LABS: ALBUMIN 3.8 g/dL (3.5-5.0); ALKALINE PHOSPHATASE 62 U/L (38-126); ANION GAP 14.4 MEQ/L (5-15); BLOOD UREA NITROGEN 20 mg/dL (7-17); CHLORIDE 93 mmol/L (98-107); Calcium 9.6 mg/dL (8.4-10.2); Carbon Dioxide 35 mmol/L (22-30); Creatinine 1 0.95 mg/dL (0.52-1.04); Glucose 215 mg/dL (74-106); NT PRO BNP 1610 pg/mL (0-1800); Potassium 3.8 mmol/L (3.5-5.1); SGOT/AST 18 U/L (14-36); SGPT/ALT 26 U/L (0-35); SODIUM 138 mmol/L (137-145); Total Protein 6.8 g/dL (6.3-8.2)
[2018-10-01 07:52] LABS: Appearance CLEAR (CLEAR); Bilirubin NEGATIVE (NEGATIVE); Blood NEGATIVE Ery/ul (0-5); Epithelial Cells RARE /HPF (FEW); Glucose NEGATIVE (NEGATIVE); Ketones NEGATIVE (NEGATIVE); Leukocyte Esterase NEGATIVE (NEGATIVE); Mucus SLIGHT /HPF (NEGATIVE); Nitrite NEGATIVE (NEGATIVE); Protein,Urine Dip 100 (Negative); RBC 0-2 /HPF (0-2); Specific Gravity 1.026 (1.005-1.025); Urobilinogen NEGATIVE mg/dL (0-1)
--- NOTE | 2018-10-01 08:01 | XRAY ---
Indication: Short of breath and cough. Comparison: One day earlier. Portable apical lordotic chest unchanged again with minimal bilateral atelectasis/scarring and borderline cardiomegaly. No focal infiltrate, consolidation, large effusion, or new cardiopulmonary abnormalities.
[2018-10-01] MEDS ORDERED: PROVENTIL 2.5 MG/3 ML NEB IH ONE ×2 (08:06→08:33)
[2018-10-01 08:08] LABS: INFLUENZA A NEGATIVE (NEGATIVE); INFLUENZA B NEGATIVE (NEGATIVE); RESPIRATORY SYNCTIAL VIRUS NEGATIVE (Negative)
[2018-10-01] MEDS ORDERED: DUONEB 0.5-3 MG/3 ml Neb IH PRN (10:37)
[2018-10-01] MEDS: solu-MEDROL 125 MG IV SCH ×2 (11:33→19:27)
[2018-10-01] MEDS: NovoLOG Insulin SQ PRN ×3 (11:33→22:08)
[2018-10-01] MEDS ORDERED: MEDICATION INTERVENTION MC SCH (12:00)
[2018-10-01] MEDS: Cymbalta 30 MG Capsule PO SCH (12:30)
[2018-10-01] MEDS: ELIQUIS 2.5 MG TABLET PO SCH ×2 (12:30→22:09)
[2018-10-01] MEDS: BUMEX 1 MG PO SCH (12:30)
[2018-10-01] MEDS: Imdur 30 MG PO SCH (12:31)
[2018-10-01] MEDS: Lopressor 25MG Tab PO SCH (12:31)
[2018-10-01] MEDS: Klor Con 10 MEQ PO SCH (12:31)
[2018-10-01] MEDS: MAG-OX 400 PO SCH (12:31)
[2018-10-01] MEDS: NORVASC 5 MG PO SCH (12:32)
[2018-10-01] MEDS ORDERED: Colace 100 MG PO PRN (21:18)
--- NOTE | 2018-10-01 21:25 | PCM.HP ---
History of Present Illness - Chief Complaint Chief Complaint: Shortness of Breath, COPD Exacerbation History of Present Illness: is a 78 year old female pt of mine from [facility] with DM, COPD, CHF, and afib who was admitted through the ER with COPD exacerbation. Last week she was in [facility], sounds like also for COPD exacerbation. Was in x 2d and out x 1 week - saw me in office on 09/30/18 and she thought her cough was worse since hospital discharge; also c/o DELGADO. I gave her 1g rocephin IM in office and gave her po antibiotics to start the next day (augmentin). She did have labs and a CXR including BNP (which was normal) - although WBC was normal I was treating for presumptive COPD exacerbation. In ER, her wbc are 9.7. CXR non acute. She denies having fevers. She checks her weight daily and they have been decreasing. - Review of Systems Constitutional: No Fever Respiratory: Cough, Short Of Breath, Wheezing Cardiac: No Edema Abdominal/Gastrointestinal: Constipation Genitourinary Symptoms: Incontinence Psychological: Anxiety All Other Systems: Reviewed and Negative Medications & Allergies Home Medications: Home Medication List Alendronate Sodium 70 mg [Fosamax 70 MG] 70 mg PO WEEKLY 10/01/18 [ History Confirmed 10/01/18] Amlodipine Besylate 5 mg PO DAILY 10/01/18 [History Confirmed 10/01/18] Apixaban [Eliquis] 5 mg PO BID 10/01/18 [History Confirmed 10/01/18] Budesonide/Formoterol Fumarate [Symbicort 160-4.5 Mcg Inhaler] 2 puff IH BID [History Confirmed 10/01/18] Bumetanide 1 mg [Bumex 1 mg] 0.5 mg PO DAILY 10/01/18 [History Confirmed 10/01/18] Cholecalciferol (Vitamin D3) [Vitamin D] 400 unit PO LUNCH 10/01/18 [History Confirmed 10/01/18] Duloxetine HCl 30 mg [Cymbalta 30 MG Capsule] 30 mg PO LUNCH 10/01/18 [ History Confirmed 10/01/18] Isosorbide Mononitrate 30 mg [Imdur 30 MG] 30 mg PO DAILY 10/01/18 [ History Confirmed 10/01/18] Magnesium 200 mg PO LUNCH 10/01/18 [History Confirmed 10/01/18] Metoprolol Tartrate 25 mg [Lopressor 25MG Tab] 25 mg PO DAILY 10/01/18 [ History Confirmed 10/01/18] Potassium Chloride 10 Meq Tab* [Klor Con 10 MEQ] 20 meq PO DAILY 10/01/18 [ History Confirmed 10/01/18] Simvastatin [Zocor] 40 mg PO HS 10/01/18 [History Confirmed 10/01/18] Tiotropium Lee [Spiriva] 1 puff IH DAILY 10/01/18 [History Confirmed ] Allergies/Adverse Reactions: Allergies Allergy/AdvReac Type Severity Reaction Status Date / Time No Known Drug Allergies Allergy Verified 10/01/18 05:48 - Past Medical History Past Medical History: Yes Neurological History: Peripheral Neuropathy ENT History: Cataracts Cardiac History: Arrhythmia, Congestive Heart Failure, High Cholesterol, Hypertension Respiratory History: CHF, COPD, Other Endocrine Medical History: Diabetes Type II Musculoskelatal History: Fractures, Osteoporosis GI Medical History: No Pertinent History, Hernia History: Other Pyscho-Social History: No Pertinent History Reproductive Disorders: No Pertinent History Comment: 2017 fell injured kidney, fx vertebrae repaired with kyphoplasty, lung infection - Female History Are you now?: No - Past Surgical History Past Surgical History: Yes Neuro Surgical History: Other Cardiac History: No Pertinent History Respiratory Surgery: No Pertinent History GI Surgical History: Cholecystectomy, Hernia Repair Genitourinary Surgical Hx: Other Musculskeletal Surgical Hx: Orthopedic Surgery Female Surgical History: Section Other Surgical History: back surgery; broken ribs with cement; Left wrist surgery; bladder and rectal prolapse - Social History Smoking Status: Never smoker Exposure to second hand smoke: Yes Alcohol: None Drug Use: none - Physical Exam Vital Signs: Vital Signs - 24 hr Temp Pulse Resp BP Pulse Ox 10/01/18 16:38 97.9 F 93 H 20 132/72 96 10/01/18 16:00 20 10/01/18 15:10 76 18 98 10/01/18 14:01 98.1 F 10/01/18 13:09 98 F 79 20 157/74 95 10/01/18 12:28 98.2 F 101 H 20 177/79 94 L 10/01/18 11:46 98.2 F 101 H 20 177/79 94 L 10/01/18 11:02 20 94 L 10/01/18 10:40 98.2 F 107 H 22 177/79 94 L 10/01/18 10:37 95 10/01/18 10:35 98.2 F 107 H 22 177/79 94 L 10/01/18 09:56 86 24 156/83 96 10/01/18 09:10 88 20 96 10/01/18 08:45 90 22 149/80 95 10/01/18 07:02 90 18 96 10/01/18 06:52 99 10/01/18 06:50 84 16 174/91 97 10/01/18 05:48 98.9 F 79 32 H 163/87 99 Oxygen-Last 24 hours O2 Percentage 2 Liters = 28% O2 Percentage 2 Liters = 28% O2 Percentage 2 Liters = 28% O2 Percentage 2 Liters = 28% O2 Percentage 2 Liters = 28% O2 Percentage 2 Liters = 28% O2 Percentage 4 Liters = 36% O2 Percentage 4 Liters = 36% Oxygen Flowrate (L/min)-RT 2 Oxygen Flowrate (L/min)-RT 2 Oxygen Flowrate (L/min)-RT 2 General Appearance: no apparent distress, obese Neurologic Exam: alert, cooperative, No slurred speech Eye Exam: eyes nml inspection Ears, Nose, Throat Exam: moist mucous membranes Neck Exam: normal inspection Respiratory Exam: diminished breath sounds (poor air exchange), wheezing ( scattered), No crackles/rales, No rhonchi Cardiovascular Exam: irregular, No murmur Gastrointestinal/Abdomen Exam: soft, normal bowel sounds, No tenderness, No distention, No mass, No guarding, No rebound Back Exam: normal inspection, No rash Extremity Exam: normal inspection, No pedal edema, No swelling Skin Exam: normal color, warm, dry, No rash Results - Labs Lab/Micro Results: Accuchecks Date 10/01/18 Date 10/01/18 Time 16:30 Time 11:30 Accucheck Value: 293 Accucheck Value: 404 Accucheck Value: 233 Lab Results-Last 24 Hours 10/01/18 10/01/18 10/01/18 Range/Units 06:10 06:30 06:30 WBC 9.7 (4.0-10.5) K/mm3 RBC 4.71 (4.1-5.4) M/mm3 Hgb 12.7 (12.0-16.0) gm/dl Hct 40.5 (35-47) % MCV 86.0 (78-100) fl MCH 27.0 (26-32) pg MCHC 31.4 L (32-36) g/dl RDW 14.0 (11.5-14.0) % Plt Count 197 (150-450) K/mm3 MPV 10.5 H (6-9.5) fl Gran % 78.7 H (36.0-66.0) % Eos # (Auto) 0.30 (0-0.5) Absolute Lymphs (auto) 0.70 L (1.0-4.6) Absolute Monos (auto) 1.03 (0.0-1.3) Lymphocytes % 7.2 L (24.0-44.0) % Monocytes % 10.6 (0.0-12.0) % Eosinophils % 3.1 (0.00-5.0) % Basophils % 0.4 (0.0-0.4) % Absolute Granulocytes 7.66 H (1.4-6.9) Basophils # 0.04 (0-0.4) Puncture Site RIGHT RADIAL pCO2 57 H (35-45) mmHg pO2 81 (75-100) mmHg Base Excess 10.5 H (-2.0-2.0) O2 Saturation 95.5 (94-100) g/dF ABG pH 7.42 (7.35-7.45) ABG HCO3 37.0 H* (22-28) ABG O2 Sat (Measured) 98.2 (95-100) % Hussain Test YES A-a Gradient 47 a/A Ratio 0.63 Hemoglobin 12.6 Carboxyhemoglobin 1.8 (0.0-6.9) % THgb Methemoglobin 0.9 L (1.4-1.5) % Potassium 3.4 L 3.8 (3.5-5.1) Temperature 37.0 C POC O2 Flow Rate 28 % Sodium 138 (137-145) mmol/L Chloride 93 L (98-107) mmol/L Carbon Dioxide 35 H (22-30) mmol/L Anion Gap 14.4 (5-15) MEQ/L BUN 20 H (7-17) mg/dL Creatinine 0.95 (0.52-1.04) mg/dL Estimated GFR > 60.0 ML/MIN Glucose 215 H (74-106) mg/dL Calcium 9.6 (8.4-10.2) mg/dL Total Bilirubin 0.50 (0.2-1.3) mg/dL AST 18 (14-36) U/L ALT 26 (0-35) U/L Alkaline Phosphatase 62 (38-126) U/L Troponin I (0.000-0.034) ng/mL NT-Pro-B Natriuret Pep 1610 (0-1800) pg/mL Serum Total Protein 6.8 (6.3-8.2) g/dL Albumin 3.8 (3.5-5.0) g/dL Urine Color (YELLOW) Urine Appearance (CLEAR) Urine pH (5-6) Ur Specific Wagner (1.005-1.025) Urine Protein (Negative) Urine Ketones (NEGATIVE) Urine Blood (0-5) Roly/ul Urine Nitrite (NEGATIVE) Urine Bilirubin (NEGATIVE) Urine Urobilinogen (0-1) mg/dL Ur Leukocyte Esterase (NEGATIVE) Urine WBC (Auto) (0-5) /HPF Urine RBC (Auto) (0-2) /HPF U Hyaline Cast (Auto) (0-2) /LPF U Epithel Cells (Auto) (FEW) /HPF Urine Mucus (Auto) (NEGATIVE) /HPF Urine Culture Reflexed (NO) Urine Glucose (NEGATIVE) mg/dL Influenza Type A Ag (NEGATIVE) Influenza Type B Ag (NEGATIVE) RSV (PCR) (Negative) 10/01/18 10/01/18 10/01/18 Range/Units 06:30 06:30 07:46 WBC (4.0-10.5) K/mm3 RBC (4.1-5.4) M/mm3 Hgb (12.0-16.0) gm/dl Hct (35-47) % MCV (78-100) fl MCH (26-32) pg MCHC (32-36) g/dl RDW (11.5-14.0) % Plt Count (150-450) K/mm3 MPV (6-9.5) fl Gran % (36.0-66.0) % Eos # (Auto) (0-0.5) Absolute Lymphs (auto) (1.0-4.6) Absolute Monos (auto) (0.0-1.3) Lymphocytes % (24.0-44.0) % Monocytes % (0.0-12.0) % Eosinophils % (0.00-5.0) % Basophils % (0.0-0.4) % Absolute Granulocytes (1.4-6.9) Basophils # (0-0.4) Puncture Site pCO2 (35-45) mmHg pO2 (75-100) mmHg Base Excess (-2.0-2.0) O2 Saturation (94-100) g/dF ABG pH (7.35-7.45) ABG HCO3 (22-28) ABG O2 Sat (Measured) (95-100) % Hussain Test A-a Gradient a/A Ratio Hemoglobin Carboxyhemoglobin (0.0-6.9) % THgb Methemoglobin (1.4-1.5) % Potassium (3.5-5.1) Temperature C POC O2 Flow Rate % Sodium (137-145) mmol/L Chloride (98-107) mmol/L Carbon Dioxide (22-30) mmol/L Anion Gap (5-15) MEQ/L BUN (7-17) mg/dL Creatinine (0.52-1.04) mg/dL Estimated GFR ML/MIN Glucose (74-106) mg/dL Calcium (8.4-10.2) mg/dL Total Bilirubin (0.2-1.3) mg/dL AST (14-36) U/L ALT (0-35) U/L Alkaline Phosphatase (38-126) U/L Troponin I < 0.012 (0.000-0.034) ng/mL NT-Pro-B Natriuret Pep (0-1800) pg/mL Serum Total Protein (6.3-8.2) g/dL Albumin (3.5-5.0) g/dL Urine Color HEATHER (YELLOW) Urine Appearance CLEAR (CLEAR) Urine pH 5.0 (5-6) Ur Specific Wagner 1.026 (1.005-1.025) Urine Protein 100 (Negative) Urine Ketones NEGATIVE (NEGATIVE) Urine Blood NEGATIVE (0-5) Roly/ul Urine Nitrite NEGATIVE (NEGATIVE) Urine Bilirubin NEGATIVE (NEGATIVE) Urine Urobilinogen NEGATIVE (0-1) mg/dL Ur Leukocyte Esterase NEGATIVE (NEGATIVE) Urine WBC (Auto) 3-5 (0-5) /HPF Urine RBC (Auto) 0-2 (0-2) /HPF U Hyaline Cast (Auto) 3-5 (0-2) /LPF U Epithel Cells (Auto) RARE (FEW) /HPF Urine Mucus (Auto) SLIGHT (NEGATIVE) /HPF Urine Culture Reflexed NO (NO) Urine Glucose NEGATIVE (NEGATIVE) mg/dL Influenza Type A Ag NEGATIVE (NEGATIVE) Influenza Type B Ag NEGATIVE (NEGATIVE) RSV (PCR) NEGATIVE (Negative) 10/01/18 10/01/18 10/01/18 Range/Units 09:15 12:26 15:20 WBC (4.0-10.5) K/mm3 RBC (4.1-5.4) M/mm3 Hgb (12.0-16.0) gm/dl Hct (35-47) % MCV (78-100) fl MCH (26-32) pg MCHC (32-36) g/dl RDW (11.5-14.0) % Plt Count (150-450) K/mm3 MPV (6-9.5) fl Gran % (36.0-66.0) % Eos # (Auto) (0-0.5) Absolute Lymphs (auto) (1.0-4.6) Absolute Monos (auto) (0.0-1.3) Lymphocytes % (24.0-44.0) % Monocytes % (0.0-12.0) % Eosinophils % (0.00-5.0) % Basophils % (0.0-0.4) % Absolute Granulocytes (1.4-6.9) Basophils # (0-0.4) Puncture Site pCO2 (35-45) mmHg pO2 (75-100) mmHg Base Excess (-2.0-2.0) O2 Saturation (94-100) g/dF ABG pH (7.35-7.45) ABG HCO3 (22-28) ABG O2 Sat (Measured) (95-100) % Hussain Test A-a Gradient a/A Ratio Hemoglobin Carboxyhemoglobin (0.0-6.9) % THgb Methemoglobin (1.4-1.5) % Potassium (3.5-5.1) Temperature C POC O2 Flow Rate % Sodium (137-145) mmol/L Chloride (98-107) mmol/L Carbon Dioxide (22-30) mmol/L Anion Gap (5-15) MEQ/L BUN (7-17) mg/dL Creatinine (0.52-1.04) mg/dL Estimated GFR ML/MIN Glucose (74-106) mg/dL Calcium (8.4-10.2) mg/dL Total Bilirubin (0.2-1.3) mg/dL AST (14-36) U/L ALT (0-35) U/L Alkaline Phosphatase (38-126) U/L Troponin I < 0.012 < 0.012 < 0.012 (0.000-0.034) ng/mL NT-Pro-B Natriuret Pep (0-1800) pg/mL Serum Total Protein (6.3-8.2) g/dL Albumin (3.5-5.0) g/dL Urine Color (YELLOW) Urine Appearance (CLEAR) Urine pH (5-6) Ur Specific Wagner (1.005-1.025) Urine Protein (Negative) Urine Ketones (NEGATIVE) Urine Blood (0-5) Roly/ul Urine Nitrite (NEGATIVE) Urine Bilirubin (NEGATIVE) Urine Urobilinogen (0-1) mg/dL Ur Leukocyte Esterase (NEGATIVE) Urine WBC (Auto) (0-5) /HPF Urine RBC (Auto) (0-2) /HPF U Hyaline Cast (Auto) (0-2) /LPF U Epithel Cells (Auto) (FEW) /HPF Urine Mucus (Auto) (NEGATIVE) /HPF Urine Culture Reflexed (NO) Urine Glucose (NEGATIVE) mg/dL Influenza Type A Ag (NEGATIVE) Influenza Type B Ag (NEGATIVE) RSV (PCR) (Negative) 10/01/18 Range/Units 20:16 WBC (4.0-10.5) K/mm3 RBC (4.1-5.4) M/mm3 Hgb (12.0-16.0) gm/dl Hct (35-47) % MCV (78-100) fl MCH (26-32) pg MCHC (32-36) g/dl RDW (11.5-14.0) % Plt Count (150-450) K/mm3 MPV (6-9.5) fl Gran % (36.0-66.0) % Eos # (Auto) (0-0.5) Absolute Lymphs (auto) (1.0-4.6) Absolute Monos (auto) (0.0-1.3) Lymphocytes % (24.0-44.0) % Monocytes % (0.0-12.0) % Eosinophils % (0.00-5.0) % Basophils % (0.0-0.4) % Absolute Granulocytes (1.4-6.9) Basophils # (0-0.4) Puncture Site pCO2 (35-45) mmHg pO2 (75-100) mmHg Base Excess (-2.0-2.0) O2 Saturation (94-100) g/dF ABG pH (7.35-7.45) ABG HCO3 (22-28) ABG O2 Sat (Measured) (95-100) % Hussain Test A-a Gradient a/A Ratio Hemoglobin Carboxyhemoglobin (0.0-6.9) % THgb Methemoglobin (1.4-1.5) % Potassium (3.5-5.1) Temperature C POC O2 Flow Rate % Sodium (137-145) mmol/L Chloride (98-107) mmol/L Carbon Dioxide (22-30) mmol/L Anion Gap (5-15) MEQ/L BUN (7-17) mg/dL Creatinine (0.52-1.04) mg/dL Estimated GFR ML/MIN Glucose (74-106) mg/dL Calcium (8.4-10.2) mg/dL Total Bilirubin (0.2-1.3) mg/dL AST (14-36) U/L ALT (0-35) U/L Alkaline Phosphatase (38-126) U/L Troponin I < 0.012 (0.000-0.034) ng/mL NT-Pro-B Natriuret Pep (0-1800) pg/mL Serum Total Protein (6.3-8.2) g/dL Albumin (3.5-5.0) g/dL Urine Color (YELLOW) Urine Appearance (CLEAR) Urine pH (5-6) Ur Specific Wagner (1.005-1.025) Urine Protein (Negative) Urine Ketones (NEGATIVE) Urine Blood (0-5) Roly/ul Urine Nitrite (NEGATIVE) Urine Bilirubin (NEGATIVE) Urine Urobilinogen (0-1) mg/dL Ur Leukocyte Esterase (NEGATIVE) Urine WBC (Auto) (0-5) /HPF Urine RBC (Auto) (0-2) /HPF U Hyaline Cast (Auto) (0-2) /LPF U Epithel Cells (Auto) (FEW) /HPF Urine Mucus (Auto) (NEGATIVE) /HPF Urine Culture Reflexed (NO) Urine Glucose (NEGATIVE) mg/dL Influenza Type A Ag (NEGATIVE) Influenza Type B Ag (NEGATIVE) RSV (PCR) (Negative) Accuchecks Date 10/01/18 Date 10/01/18 Time 16:30 Time 11:30 Accucheck Value: 293 Accucheck Value: 404 Accucheck Value: 233 - Radiology Impressions Radiology Exams & Impressions: Radiology Procedures Category Date Time Status CHEST 1 VIEW (PORTABLE) Stat Exams 10/01/18 06:12 Completed - Other Procedures and Tests Respiratory Therapy 10/01/18 11:22 Respiratory Therapy Assessment DAILY 10/01/18 11:23 Oxygen Nasal Cannula 2 lpm Peak Expiratory Flow Rate ONCE 10/01/18 21:18 Respiratory Nebulizer Q4H Assessment/Plan (1) COPD with exacerbation Current Visit: Yes Status: Acute Assessment & Plan: she complains the albuterol makes her shaky and with her afib in mind I switched albuterol to xopenex. she will need a new nebulizer machine at home. On IV levaquin day #1 and solumedrol 80mg IV q6h. Code(s): J44.1 - CHRONIC OBSTRUCTIVE PULMONARY DISEASE W (ACUTE) EXACERBATION (2) Obstructive sleep apnea Current Visit: No Status: Acute Code(s): G47.33 - OBSTRUCTIVE SLEEP APNEA ( ADULT) (PEDIATRIC) (3) Atrial fibrillation Current Visit: No Status: Chronic Qualifiers: Atrial fibrillation type: chronic Qualified Code(s): I48.2 - Chronic atrial fibrillation Assessment & Plan: stable Code(s): I48.91 - UNSPECIFIED ATRIAL FIBRILLATION (4) CHF (congestive heart failure) Current Visit: No Status: Chronic Assessment & Plan: stable Code(s): I50.9 - HEART FAILURE, UNSPECIFIED (5) Chronic hypoxemic respiratory failure Current Visit: No Status: Chronic (6) Diabetes mellitus Current Visit: No Status: Chronic Qualifiers: Diabetes mellitus type: type 2 Diabetes mellitus care home insulin use: without middle or intermediate school principal use Diabetes mellitus complication status: without complication Qualified Code(s): E11.9 - Type 2 diabetes mellitus without complications Code(s): E11.9 - TYPE 2 DIABETES MELLITUS WITHOUT COMPLICATIONS (7) Anxiety Current Visit: Yes Status: Acute Assessment & Plan: ativan this evening Code(s): F41.9 - ANXIETY DISORDER, UNSPECIFIED
[2018-10-01] MEDS ORDERED: NON-FORMULARY ITEM (Budesonide/Formoterol Fumarate [Symbicort 160-4.5 Mcg Inhaler] 2 PUFF) IH SCH (22:00)
[2018-10-01] MEDS: Ativan 1 MG PO SCH (22:09)
[2018-10-01] MEDS: ZOCOR 20MG PO SCH (22:09)
[2018-10-01] MEDS: Advair Hfa 230/21 Mcg COMMON CANISTER IH SCH (22:11)
[2018-10-01] MEDS ORDERED: Sodium Chloride 3 ML UD NEBULES IH ONE (22:23)
[2018-10-01] MEDS: Xopenex 1.25 MG/0.5 ML UD NEBULE IH PRN (22:23)
[2018-10-02] MEDS: solu-MEDROL 125 MG IV SCH ×5 (00:28→23:34)
[2018-10-02] MEDS ORDERED: Ativan 2 MG/1 ML VIAL IV ONE (02:04)
[2018-10-02 06:20] LABS: BASOPHIL % 0.1 % (0.0-0.4); Basophil (Absolute #) 0.01 (0-0.4); Eosinophil % 0.1 % (0.00-5.0); Eosinophil (Absolute #) 0.01 (0-0.5); Granulocyte Absolute (ANC) 12.67 (1.4-6.9); Granulocytes % 94.6 % (36.0-66.0); Hematocrit 38.4 % (35-47); Lymphocyte (Absolute #) 0.35 (1.0-4.6); Lymphocytes % 2.6 % (24.0-44.0); Mean Cell Volume 84.8 fl (78-100); Mean Corpuscular Hemoglobin 26.5 pg (26-32); Mean Corpuscular Hgb Concent. 31.3 g/dl (32-36); Mean Platelet Volume 10.2 fl (6-9.5); Monocyte (Absolute #) 0.35 (0.0-1.3); Monocytes % 2.6 % (0.0-12.0); Platelet Count 226 K/mm3 (150-450); Red Blood Count 4.53 M/mm3 (4.1-5.4); Red Cell Distribution Width 14.1 % (11.5-14.0); White Blood Count 13.4 K/mm3 (4.0-10.5)
[2018-10-02 06:40] LABS: ALBUMIN 3.9 g/dL (3.5-5.0); ANION GAP 17.6 MEQ/L (5-15); BILIRUBIN,TOTAL 0.6 mg/dL (0.2-1.3); Calcium 9.1 mg/dL (8.4-10.2); Creatinine 1 1.06 mg/dL (0.52-1.04); Potassium 4.2 mmol/L (3.5-5.1)
[2018-10-02 07:13] LABS: Slide Review 1 YES
[2018-10-02] MEDS: Advair Hfa 230/21 Mcg COMMON CANISTER IH SCH ×2 (07:51→19:54)
[2018-10-02] MEDS: Spiriva 18 Mcg/Cap Inhaler IH SCH (07:52)
[2018-10-02] MEDS: NovoLOG Insulin SQ PRN ×4 (08:07→21:32)
[2018-10-02] MEDS ORDERED: xanAX 0.25 MG PO ONE (09:33)
[2018-10-02] MEDS ORDERED: Lantus Insulin SQ SCH (10:00)
[2018-10-02] MEDS: Xopenex 1.25 MG/0.5 ML UD NEBULE IH PRN (10:40)
[2018-10-02] MEDS: Sodium Chloride 3 ML UD NEBULES IH PRN ×2 (10:41→19:54)
--- NOTE | 2018-10-02 10:52 | PCM.NOTE ---
Date and Time: 10/02/18 1040 Subjective Assessment: Last night pt was quite anxious and had some tachypea - resolved after 1mg ativan po and 1 mg ativan IV. This morning she suddenly became anxious and tachypneic. The RN got a dose of xanax 0.25mg for her and immediately after receiving it she was calm. She is having a hard time expectorating sputum. Slept last night but was restless and coughing. - Review of Systems Constitutional: No Fever Respiratory: Cough, Short Of Breath Objective Exam General Appearance: no apparent distress, alert, other (sitting on edge of bed) Neurologic Exam: oriented x 3, cooperative Skin Exam: normal color, warm, dry, No rash Respiratory Exam: diminished breath sounds (fair air exchange), wheezing ( throughout), No crackles/rales, No rhonchi Cardiovascular Exam: regular rate/rhythm, normal heart sounds, No murmur Extremity Exam: normal inspection, No pedal edema, No swelling OBJECTIVE DATA Vital Signs: Vital Signs - 24 hr Temp Pulse Resp BP Pulse Ox 10/02/18 08:03 79 18 92 L 10/02/18 07:27 97.8 F 96 H 24 164/80 96 10/02/18 04:00 112 H 24 94 L 10/02/18 00:00 98.9 F 116 H 26 H 145/79 93 L 10/01/18 22:29 100 H 24 95 10/01/18 20:00 97.4 F 118 H 26 H 142/79 93 L 10/01/18 16:38 97.9 F 93 H 20 132/72 96 10/01/18 16:00 20 10/01/18 15:10 76 18 98 10/01/18 14:01 98.1 F 10/01/18 13:09 98 F 79 20 157/74 95 10/01/18 12:28 98.2 F 101 H 20 177/79 94 L 10/01/18 11:46 98.2 F 101 H 20 177/79 94 L 10/01/18 11:02 20 94 L Oxygen-Last 24 hours O2 Percentage 2 Liters = 28% O2 Percentage 2 Liters = 28% O2 Percentage 2 Liters = 28% O2 Percentage 2 Liters = 28% O2 Percentage 2 Liters = 28% O2 Percentage 2 Liters = 28% Oxygen Flowrate (L/min)-RT 2 Oxygen Flowrate (L/min)-RT 2 Pain Assessment - Last Documented Pain Intensity 0 Pain Scale Used 0-10 Pain Scale Intake and Output: Intake & Output 09/29/18 09/30/18 10/01/18 10/02/18 11:59 11:59 11:59 11:59 Intake Total 1420 Output Total 900 Balance 520 Weight 73.6 kg 73.2 kg Lab Results: Accuchecks Date 10/02/18 Date 10/01/18 Date 10/01/18 Date 10/01/18 Time 08:08 Time 21:00 Time 16:30 Time 11:30 Accucheck Value: 315 Accucheck Value: 377 Accucheck Value: 293 Accucheck Value: 404 Lab Results-Last 24 Hours 10/01/18 10/01/18 10/01/18 Range/Units 12:26 15:20 20:16 WBC (4.0-10.5) K/mm3 RBC (4.1-5.4) M/mm3 Hgb (12.0-16.0) gm/dl Hct (35-47) % MCV (78-100) fl MCH (26-32) pg MCHC (32-36) g/dl RDW (11.5-14.0) % Plt Count (150-450) K/mm3 MPV (6-9.5) fl Gran % (36.0-66.0) % Eos # (Auto) (0-0.5) Absolute Lymphs (auto) (1.0-4.6) Absolute Monos (auto) (0.0-1.3) Lymphocytes % (24.0-44.0) % Monocytes % (0.0-12.0) % Eosinophils % (0.00-5.0) % Basophils % (0.0-0.4) % Absolute Granulocytes (1.4-6.9) Basophils # (0-0.4) Sodium (137-145) mmol/L Potassium (3.5-5.1) mmol/L Chloride (98-107) mmol/L Carbon Dioxide (22-30) mmol/L Anion Gap (5-15) MEQ/L BUN (7-17) mg/dL Creatinine (0.52-1.04) mg/dL Estimated GFR ML/MIN Glucose (74-106) mg/dL Calcium (8.4-10.2) mg/dL Total Bilirubin (0.2-1.3) mg/dL AST (14-36) U/L ALT (0-35) U/L Alkaline Phosphatase (38-126) U/L Troponin I < 0.012 < 0.012 < 0.012 (0.000-0.034) ng/mL Serum Total Protein (6.3-8.2) g/dL Albumin (3.5-5.0) g/dL Slides for Path Review 10/02/18 10/02/18 Range/Units 05:30 05:30 WBC 13.4 H (4.0-10.5) K/mm3 RBC 4.53 (4.1-5.4) M/mm3 Hgb 12.0 (12.0-16.0) gm/dl Hct 38.4 (35-47) % MCV 84.8 (78-100) fl MCH 26.5 (26-32) pg MCHC 31.3 L (32-36) g/dl RDW 14.1 H (11.5-14.0) % Plt Count 226 (150-450) K/mm3 MPV 10.2 H (6-9.5) fl Gran % 94.6 H (36.0-66.0) % Eos # (Auto) 0.01 (0-0.5) Absolute Lymphs (auto) 0.35 L (1.0-4.6) Absolute Monos (auto) 0.35 (0.0-1.3) Lymphocytes % 2.6 L (24.0-44.0) % Monocytes % 2.6 (0.0-12.0) % Eosinophils % 0.1 (0.00-5.0) % Basophils % 0.1 (0.0-0.4) % Absolute Granulocytes 12.67 H (1.4-6.9) Basophils # 0.01 (0-0.4) Sodium 137 (137-145) mmol/L Potassium 4.2 (3.5-5.1) mmol/L Chloride 92 L (98-107) mmol/L Carbon Dioxide 32 H (22-30) mmol/L Anion Gap 17.6 H (5-15) MEQ/L BUN 34 H (7-17) mg/dL Creatinine 1.06 H (0.52-1.04) mg/dL Estimated GFR 53.1 ML/MIN Glucose 318 H (74-106) mg/dL Calcium 9.1 (8.4-10.2) mg/dL Total Bilirubin 0.60 (0.2-1.3) mg/dL AST 15 (14-36) U/L ALT 22 (0-35) U/L Alkaline Phosphatase 58 (38-126) U/L Troponin I (0.000-0.034) ng/mL Serum Total Protein 7.0 (6.3-8.2) g/dL Albumin 3.9 (3.5-5.0) g/dL Slides for Path Review YES Radiology Exams: Radiology Procedures Category Date Time Status CHEST 1 VIEW (PORTABLE) Stat Exams 10/01/18 06:12 Completed Assessment/Plan (1) COPD with exacerbation Current Visit: Yes Status: Acute Assessment & Plan: On aq day #2. I spoke with RT, will try mucomyst nebulizer treatments. Adding guaifenacin. Consider adding theophylline, particularly if the mucomyst is not helping. Consider pulmonology consult tomorrow if not improving. Code(s): J44.1 - CHRONIC OBSTRUCTIVE PULMONARY DISEASE W (ACUTE) EXACERBATION (2) Obstructive sleep apnea Current Visit: No Status: Chronic Code(s): G47.33 - OBSTRUCTIVE SLEEP APNEA (ADULT) (PEDIATRIC) (3) Atrial fibrillation Current Visit: No Status: Chronic Qualifiers: Atrial fibrillation type: chronic Qualified Code(s): I48.2 - Chronic atrial fibrillation Code(s): I48.91 - UNSPECIFIED ATRIAL FIBRILLATION (4) CHF (congestive heart failure) Current Visit: No Status: Chronic Qualifiers: Heart failure type: diastolic Heart failure chronicity: chronic Qualified Code(s): I50.32 - Chronic diastolic (congestive) heart failure Code(s): I50.9 - HEART FAILURE, UNSPECIFIED (5) Chronic hypoxemic respiratory failure Current Visit: No Status: Chronic (6) Diabetes mellitus Current Visit: No Status: Chronic Qualifiers: Diabetes mellitus type: type 2 Diabetes mellitus long-term insulin use: without long-term use Diabetes mellitus complication status: without complication Qualified Code(s): E11.9 - Type 2 diabetes mellitus without complications Assessment & Plan: added lantus today Code(s): E11.9 - TYPE 2 DIABETES MELLITUS WITHOUT COMPLICATIONS (7) Anxiety Current Visit: Yes Status: Chronic Assessment & Plan: acute on chronic. Code(s): F41.9 - ANXIETY DISORDER, UNSPECIFIED
[2018-10-02] MEDS: ELIQUIS 2.5 MG TABLET PO SCH ×2 (10:56→21:32)
[2018-10-02] MEDS: Klor Con 10 MEQ PO SCH (10:56)
[2018-10-02] MEDS: Lopressor 25MG Tab PO SCH (10:56)
[2018-10-02] MEDS: Imdur 30 MG PO SCH (10:56)
[2018-10-02] MEDS: BUMEX 1 MG PO SCH (10:57)
[2018-10-02] MEDS: NORVASC 5 MG PO SCH (10:57)
[2018-10-02] MEDS: Levaquin 250MG/50ML D5W 250 MG/50 ML BAG IV SCH (11:03)
[2018-10-02] MEDS: MAG-OX 400 PO SCH (11:09)
[2018-10-02] MEDS: Cymbalta 30 MG Capsule PO SCH (11:09)
[2018-10-02] MEDS: Mucinex 600MG ER Tabs PO SCH ×2 (11:44→21:32)
[2018-10-02] MEDS: Ativan 0.5 MG PO PRN (16:15)
[2018-10-02] MEDS: BUSPAR 5 MG PO SCH ×2 (16:15→21:32)
[2018-10-02] MEDS: Xopenex 1.25 MG/0.5 ML UD NEBULE IH SCH (19:53)
[2018-10-02] MEDS: Mucomyst 200 MG/ML IH SCH (19:54)
[2018-10-02] MEDS: CHLORASEPTIC SPRAY 180 ML PO PRN (20:29)
[2018-10-02] MEDS: ZOCOR 20MG PO SCH (21:32)
[2018-10-02] MEDS: Ativan 1 MG PO SCH (21:32)
[2018-10-03 05:58] LABS: Hemoglobin 12.1 gm/dl (12.0-16.0); Mean Cell Volume 86.5 fl (78-100); Mean Corpuscular Hemoglobin 26.8 pg (26-32); Mean Platelet Volume 10.3 fl (6-9.5); Platelet Count 249 K/mm3 (150-450); Red Blood Count 4.51 M/mm3 (4.1-5.4); Red Cell Distribution Width 14.5 % (11.5-14.0); White Blood Count 16.8 K/mm3 (4.0-10.5)
[2018-10-03] MEDS: solu-MEDROL 125 MG IV SCH ×3 (06:34→18:25)
[2018-10-03 06:37] LABS: BAND 3 % (0.0-2.0); Lymphocytes 5 % (24-44); Neutrophils 92 % (36.0-66.0); Platelet Estimate NORMAL (NORMAL); Total Cells Counted 100
[2018-10-03 06:42] LABS: ANION GAP 13.6 MEQ/L (5-15); Calcium 9.6 mg/dL (8.4-10.2); Creatinine 1 1.27 mg/dL (0.52-1.04); Potassium 5.5 mmol/L (3.5-5.1)
[2018-10-03] MEDS: Advair Hfa 230/21 Mcg COMMON CANISTER IH SCH ×2 (07:14→19:30)
[2018-10-03] MEDS: Xopenex 1.25 MG/0.5 ML UD NEBULE IH SCH ×2 (07:14→19:24)
[2018-10-03] MEDS: Spiriva 18 Mcg/Cap Inhaler IH SCH (07:15)
--- NOTE | 2018-10-03 08:28 | PCM.NOTE ---
Date and Time: 10/03/18820 Subjective Assessment: Pt's thinks she is coughing up more sputum. She is still sob especially with exertion. Tachypneic at times. Amber po well. Continues to be anxious. Notes that when she's had norco in the past it helped her relax. - Review of Systems Constitutional: No Fever Respiratory: Cough, Short Of Breath Objective Exam General Appearance: no apparent distress, alert, anxiety Neurologic Exam: oriented x 3, cooperative Skin Exam: normal color, warm, dry, No rash Respiratory Exam: diminished breath sounds (fair air exchange), wheezing ( throughout), No crackles/rales, No rhonchi Cardiovascular Exam: regular rate/rhythm, normal heart sounds, No murmur Gastrointestinal/Abdomen Exam: soft, normal bowel sounds, No tenderness, No guarding, No rebound Back Exam: normal inspection, No rash OBJECTIVE DATA Vital Signs: Vital Signs - 24 hr Temp Pulse Resp BP Pulse Ox 10/03/18 08:00 98.9 F 95 H 28 H 161/95 90 L 10/03/18 07:22 90 28 H 95 10/03/18 04:00 95 H 25 H 94 L 10/03/18 00:00 92 H 28 H 95 10/02/18 20:00 98.8 F 112 H 40 H 162/71 95 10/02/18 16:24 98.2 F 92 H 24 172/90 93 L 10/02/18 14:40 98.3 F 10/02/18 12:37 97.8 F 98 H 22 158/80 95 10/02/18 10:42 78 28 H 98 Oxygen-Last 24 hours O2 Percentage 4 Liters = 36% O2 Percentage 4 Liters = 36% O2 Percentage 4 Liters = 36% O2 Percentage 4 Liters = 36% O2 Percentage 2 Liters = 28% O2 Percentage 2 Liters = 28% O2 Percentage 2 Liters = 28% Pain Assessment - Last Documented Pain Intensity 0 Pain Scale Used 0-10 Pain Scale Intake and Output: Intake & Output 09/30/18 10/01/18 10/02/18 10/03/18 11:59 11:59 11:59 11:59 Intake Total 1420 480 Output Total 900 1550 Balance 520 -1070 Weight 73.6 kg 73.2 kg 74.9 kg Lab Results: Accuchecks Date 10/02/18 Time 22:00 Accucheck Value: 312 Accucheck Value: 290 Accucheck Value: 407 Lab Results-Last 24 Hours 10/03/18 10/03/18 Range/Units 05:10 05:10 WBC 16.8 H (4.0-10.5) K/mm3 RBC 4.51 (4.1-5.4) M/mm3 Hgb 12.1 (12.0-16.0) gm/dl Hct 39.0 (35-47) % MCV 86.5 (78-100) fl MCH 26.8 (26-32) pg MCHC 31.0 L (32-36) g/dl RDW 14.5 H (11.5-14.0) % Plt Count 249 (150-450) K/mm3 MPV 10.3 H (6-9.5) fl Segmented Neutrophils 92 H (36.0-66.0) % Band Neutrophils 3 H (0.0-2.0) % Lymphocytes (Manual) 5 L (24-44) % Platelet Estimate NORMAL (NORMAL) RBC Morphology NORMAL Sodium 137 (137-145) mmol/L Potassium 5.5 H D (3.5-5.1) mmol/L Chloride 93 L (98-107) mmol/L Carbon Dioxide 35 H (22-30) mmol/L Anion Gap 13.6 (5-15) MEQ/L BUN 49 H (7-17) mg/dL Creatinine 1.27 H (0.52-1.04) mg/dL Estimated GFR 43.1 ML/MIN Glucose 251 H (74-106) mg/dL Calcium 9.6 (8.4-10.2) mg/dL Multi-Disciplinary Progress Notes: Multi-Disciplinary Progress Notes 10/02/18 13:14 Case Management Note by Katherine Collier DISCHARGE PLAN REVIEWED. PT NORMALLY LIVES AT HOME W SPOUSE AND IS FAIRLY INDEPENDENT, WITH HELP OF OXYGEN 2LNC FROM [place], ROLLATOR WALKER, CANE AND DIABETIC TESTING DEVICE. PLAN TO RETURN HOME TO PRE EPISODIC LEVEL OF FUNCTION. WILL CONTINUE TO MONITOR FOR ALL D/C NEEDS. S/W DAUGHTER AND GAVE HER INFORMATION ON HHC, SITTERS AND GENERATIONS. Initialized on 10/02/18 13:14 - END OF NOTE Assessment/Plan (1) COPD with exacerbation Current Visit: Yes Status: Acute Assessment & Plan: Will add theophylline today. Maybe some improvement with addition of IV steroid. Levaquin day #3. Code(s): J44.1 - CHRONIC OBSTRUCTIVE PULMONARY DISEASE W (ACUTE) EXACERBATION (2) Renal insufficiency Current Visit: Yes Status: Acute Assessment & Plan: renal function has worsened since admission - will start IV fluids somewhat cautiously, pt with hx CHF. If worse tomorrow, would consider changing the levaquin. (3) Obstructive sleep apnea Current Visit: No Status: Chronic Code(s): G47.33 - OBSTRUCTIVE SLEEP APNEA (ADULT) (PEDIATRIC) (4) Atrial fibrillation Current Visit: No Status: Chronic Qualifiers: Atrial fibrillation type: chronic Qualified Code(s): I48.2 - Chronic atrial fibrillation Code(s): I48.91 - UNSPECIFIED ATRIAL FIBRILLATION (5) CHF (congestive heart failure) Current Visit: No Status: Chronic Qualifiers: Heart failure type: diastolic Heart failure chronicity: chronic Qualified Code(s): I50.32 - Chronic diastolic (congestive) heart failure Code(s): I50.9 - HEART FAILURE, UNSPECIFIED (6) Chronic hypoxemic respiratory failure Current Visit: No Status: Chronic (7) Diabetes mellitus Current Visit: No Status: Chronic Qualifiers: Diabetes mellitus type: type 2 Diabetes mellitus buttermaker insulin use: without buttermaker use Diabetes mellitus complication status: without complication Qualified Code(s): E11.9 - Type 2 diabetes mellitus without complications Assessment & Plan: increase lantus to 25 units in a.m. BS 290-315 Code(s): E11.9 - TYPE 2 DIABETES MELLITUS WITHOUT COMPLICATIONS (8) Anxiety Current Visit: Yes Status: Chronic Assessment & Plan: will try the norco instead of the ativan. Code(s): F41.9 - ANXIETY DISORDER, UNSPECIFIED
[2018-10-03] MEDS: Sodium Chloride 0.9% 1000 ML 1,000 ML IV SCH ×2 (08:34→19:23)
[2018-10-03] MEDS: NovoLOG Insulin SQ PRN ×4 (08:41→22:52)
[2018-10-03] MEDS ORDERED: THEOPHYLLINE ER 24HR PO SCH (10:00)
[2018-10-03] MEDS: Imdur 30 MG PO SCH (10:51)
[2018-10-03] MEDS: Mucinex 600MG ER Tabs PO SCH ×2 (10:51→22:49)
[2018-10-03] MEDS: NORCO 5/325 MG PO SCH ×3 (10:52→22:49)
[2018-10-03] MEDS: ELIQUIS 2.5 MG TABLET PO SCH ×2 (10:53→22:49)
[2018-10-03] MEDS: Colace 100 MG PO SCH ×2 (10:53→23:54)
[2018-10-03] MEDS: Lopressor 25MG Tab PO SCH (10:53)
[2018-10-03] MEDS: NORVASC 5 MG PO SCH (10:54)
[2018-10-03] MEDS: Levaquin 250MG/50ML D5W 250 MG/50 ML BAG IV SCH (10:54)
[2018-10-03] MEDS: Lantus Insulin SQ SCH (10:54)
[2018-10-03] MEDS: BUSPAR 5 MG PO SCH ×2 (10:54→22:50)
[2018-10-03] MEDS: Ativan 0.5 MG PO PRN (10:56)
[2018-10-03] MEDS: MAG-OX 400 PO SCH (11:07)
[2018-10-03] MEDS ORDERED: Cymbalta 30 MG Capsule PO SCH (12:00)
[2018-10-03] MEDS: Mucomyst 200 MG/ML IH SCH (19:25)
[2018-10-03] MEDS: Ativan 1 MG PO SCH (22:50)
[2018-10-03] MEDS: ZOCOR 20MG PO SCH (22:52)
[2018-10-03] MEDS: CHLORASEPTIC SPRAY 180 ML PO PRN (22:53)
[2018-10-04] MEDS: solu-MEDROL 125 MG IV SCH ×2 (00:01→05:43)
[2018-10-04] MEDS: Sodium Chloride 0.9% 1000 ML 1,000 ML IV SCH (04:53)
[2018-10-04] MEDS: Xopenex 1.25 MG/0.5 ML UD NEBULE IH SCH (07:15)
[2018-10-04] MEDS: Mucomyst 200 MG/ML IH SCH (07:16)
[2018-10-04] MEDS: Advair Hfa 230/21 Mcg COMMON CANISTER IH SCH (07:17)
[2018-10-04] MEDS: Spiriva 18 Mcg/Cap Inhaler IH SCH (07:26)
[2018-10-04 07:33] VITALS: BP 158/80; PULSE 100; O2SAT 95
[2018-10-04 08:06] LABS: Hematocrit 39.4 % (35-47); Hemoglobin 12.3 gm/dl (12.0-16.0); Mean Cell Volume 86.6 fl (78-100); Mean Corpuscular Hgb Concent. 31.2 g/dl (32-36); Platelet Count 278 K/mm3 (150-450); Red Blood Count 4.55 M/mm3 (4.1-5.4); Red Cell Distribution Width 14.5 % (11.5-14.0)
[2018-10-04 08:18] LABS: ANION GAP 12.8 MEQ/L (5-15); Calcium 8.9 mg/dL (8.4-10.2); Creatinine 1 0.97 mg/dL (0.52-1.04); Potassium 4.7 mmol/L (3.5-5.1)
[2018-10-04] MEDS: NovoLOG Insulin SQ PRN (08:19)
[2018-10-04] MEDS ORDERED: Lasix 20 MG/2 ML IV ONE (08:40)
--- NOTE | 2018-10-04 08:48 | PCM.DS ---
Discharge Summary Date of Admission: 10/01/18 10:40 Admitting Physician: ADA TOBIN Primary Care Provider: ADA TOBIN Allergies Allergies No Known Drug Allergies Allergy (Verified 10/01/18 05:48) Hospital Summary - Hospital Course Hospital Course: Pt is 78 yo female pt of mine from [facility] with DM II, COPD, CHF, afib, renal insufficiency, and anxiety who was admitted through the ER for COPD exacerbation. About 2 weeks ago she was in [facility] for 2d for COPD exacerbation. When she was out 1 week she followed up in office and was having SOB and DELGADO. Given 1g IM rocephin and prescribed po antibiotics - however that night she returned to [facility] ER and was admitted for COPD exacerbation on Levaquin. CXR was nonacute. WBC nl and BNP wnl. Pt is now on day #3 of levaquin and today has a higher oxygen requirement than yesterday with more tachypnea - 26-30 breaths per minute overnight and now on 8L oximask. On 80mg methylprednisolone q6h. Her renal function was down yesterday with eGFR of 43.1. I did start IV fluids yesterday and her eGFR is 58.9. Her BS have been elevated, up to 400. I started her on Lantus and have been increaseing that - she received 25 units yesterday morning. She has been anxious throughout her stay, as usual. Had given IV and po ativan without relief. Some po xanax with minimal relief. Yesterday she noted that she's had norco in the past that "relaxed" her - started again yesterday (5 1 po TID) and she thinks that helped a little. Giving 20mg IV lasix now and stopping fluids. Her bumex to be restarted today. She has a BNP and D-dimer that are pending. I spoke with Dr. Schaeffer at [facility] in and he will accept the pt in transfer. - Vitals & Intake/Output Vital Signs: Vital Signs Temperature 97.8 F 10/04/18 07:31 Pulse Rate 100 H 10/04/18 07:31 Respiratory Rate 24 10/04/18 07:31 Blood Pressure 158/80 10/04/18 07:31 O2 Sat by Pulse Oximetry 95 10/04/18 07:31 Oxygen-Last Documented O2 Percentage 5 Liters = 40% Intake & Output: Intake & Output 10/01/18 10/02/18 10/03/18 10/04/18 11:59 11:59 11:59 11:59 Intake Total 7627 714 4742 Output Total 900 1550 1050 Balance 520 -1070 3369 Weight 73.6 kg 73.2 kg 74.9 kg 76 kg - Lab Result Diagrams: 10/04/18 08:03 10/04/18 08:03 Lab Results-Last 24 Hrs: Accuchecks Date 10/03/18 Time 12:53 Accucheck Value: 230 Accucheck Value: 371 Lab Results-Last 24 Hours 10/04/18 10/04/18 Range/Units 08:03 08:03 WBC 19.0 H (4.0-10.5) K/mm3 RBC 4.55 (4.1-5.4) M/mm3 Hgb 12.3 (12.0-16.0) gm/dl Hct 39.4 (35-47) % MCV 86.6 (78-100) fl MCH 27.0 (26-32) pg MCHC 31.2 L (32-36) g/dl RDW 14.5 H (11.5-14.0) % Plt Count 278 (150-450) K/mm3 MPV 10.0 H (6-9.5) fl Sodium 139 (137-145) mmol/L Potassium 4.7 (3.5-5.1) mmol/L Chloride 99 (98-107) mmol/L Carbon Dioxide 31 H (22-30) mmol/L Anion Gap 12.8 (5-15) MEQ/L BUN 43 H (7-17) mg/dL Creatinine 0.97 (0.52-1.04) mg/dL Estimated GFR 58.9 ML/MIN Glucose 255 H (74-106) mg/dL Calcium 8.9 (8.4-10.2) mg/dL Micro Results-Entire Visit: Microbiology 10/01/18 06:30 Blood Culture - Preliminary Blood NO GROWTH TO DATE Accuchecks Date 10/03/18 Time 12:53 Accucheck Value: 230 Accucheck Value: 371 - Procedures and Test Procedures and Tests throughout Hospitalization: Therapy Orders & Screens 10/01/18 07:02 Respiratory Therapy Assessment DAILY Comment: Diagnosis: Shortness of Breath 10/01/18 09:09 Respiratory Therapy Assessment DAILY Comment: Diagnosis: Shortness of Breath 10/01/18 11:22 Respiratory Therapy Assessment DAILY Comment: Diagnosis: Shortness of Breath 10/01/18 11:23 Oxygen Nasal Cannula 2 lpm Comment: Diagnosis: Shortness of Breath Peak Expiratory Flow Rate ONCE Comment: Reason For Exam: Diagnosis: Shortness of Breath 10/01/18 21:18 Respiratory Nebulizer Q4H Comment: Diagnosis: Shortness of Breath, COPD Exacerbation 10/01/18 22:52 Flutter Therapy UD Comment: Diagnosis: Shortness of Breath, COPD Exacerbation 10/03/18 09:34 Home Sleep Study ONCE Comment: Diagnosis: Shortness of Breath, COPD Exacerbation, Discharge Exam General Appearance: moderate distress (tachypneic and anxious), alert Neurologic Exam: oriented x 3, cooperative Skin Exam: normal color, warm, dry, No rash Eye Exam: other (watery eyes) Ears, Nose, Throat Exam: moist mucous membranes Respiratory Exam: diminished breath sounds (fair air exchange), rhonchi ( scattered throughout), wheezing (throughout), No crackles/rales Cardiovascular Exam: normal heart sounds, tachycardia, No murmur Extremity Exam: normal inspection, No pedal edema, No swelling Back Exam: normal inspection, No rash Final Diagnosis/Problem List - Final Discharge Diagnosis/Problem (1) COPD with exacerbation Current Visit: Yes Status: Acute Assessment & Plan: on Day #3 of levaquin and on steroid IV 80mg q6h. Transferring up to , where her pulmonogist, Dr. Bob, is. Dr. Schaeffer accepting, thank you. Code(s): J44.1 - CHRONIC OBSTRUCTIVE PULMONARY DISEASE W (ACUTE) EXACERBATION (2) Respiratory failure Current Visit: Yes Status: Acute Assessment & Plan: may need BiPap, respiratory evaluating pt. May also be a component of fluid overload, so I have ordered 20mg IV lasix and stopped her IV fluids. Code(s): J96.90 - RESPIRATORY FAILURE, UNSP, UNSP W HYPOXIA OR HYPERCAPNIA (3) Renal insufficiency Current Visit: Yes Status: Chronic Assessment & Plan: much improved over yesterday. (4) Obstructive sleep apnea Current Visit: No Status: Chronic Code(s): G47.33 - OBSTRUCTIVE SLEEP APNEA (ADULT) (PEDIATRIC) (5) Atrial fibrillation Current Visit: No Status: Chronic Code(s): I48.91 - UNSPECIFIED ATRIAL FIBRILLATION (6) CHF (congestive heart failure) Current Visit: No Status: Chronic Code(s): I50.9 - HEART FAILURE, UNSPECIFIED (7) Chronic hypoxemic respiratory failure Current Visit: No Status: Chronic (8) Diabetes mellitus Current Visit: No Status: Chronic Assessment & Plan: up to 25 units daily on Lantus Code(s): E11.9 - TYPE 2 DIABETES MELLITUS WITHOUT COMPLICATIONS (9) Anxiety Current Visit: Yes Status: Chronic Assessment & Plan: was taking buspar prn at home so I made it 5mg po BID scheduled here. Came in on cymbalta 30mg po daily, and i increased it to 60mg po daily 2d ago. Code(s): F41.9 - ANXIETY DISORDER, UNSPECIFIED - Discharge Disposition: DC TO [facility] Condition: Stable Prescriptions: No Action Simvastatin [Zocor] 40 mg PO HS Duloxetine HCl 30 mg [Cymbalta 30 MG Capsule] 30 mg PO LUNCH Isosorbide Mononitrate 30 mg [Imdur 30 MG] 30 mg PO DAILY Bumetanide 1 mg [Bumex 1 mg] 0.5 mg PO DAILY Metoprolol Tartrate 25 mg [Lopressor 25MG Tab] 25 mg PO DAILY Apixaban [Eliquis] 5 mg PO BID Alendronate Sodium 70 mg [Fosamax 70 MG] 70 mg PO WEEKLY Tiotropium [place] [Spiriva] 1 puff IH DAILY Potassium Chloride 10 Meq Tab* [Klor Con 10 MEQ] 20 meq PO DAILY Magnesium 200 mg PO LUNCH Cholecalciferol (Vitamin D3) [Vitamin D] 400 unit PO LUNCH Budesonide/Formoterol Fumarate [Symbicort 160-4.5 Mcg Inhaler] 2 puff IH BID Amlodipine Besylate 5 mg PO DAILY Follow up with: ADA TOBIN [Primary Care Provider] - 1 Week
[2018-10-04] MEDS: Mucinex 600MG ER Tabs PO SCH (09:08)
[2018-10-04] MEDS: Imdur 30 MG PO SCH (09:09)
[2018-10-04] MEDS: BUMEX 1 MG PO SCH (09:13)
[2018-10-04] MEDS: NORCO 5/325 MG PO SCH (09:14)
[2018-10-04] MEDS: Lopressor 25MG Tab PO SCH (09:16)
[2018-10-04] MEDS: BUSPAR 5 MG PO SCH (09:16)
[2018-10-04] MEDS: ELIQUIS 2.5 MG TABLET PO SCH (09:23)
[2018-10-04] MEDS: Lantus Insulin SQ SCH (09:25)
[2018-10-04] MEDS ORDERED: NORVASC 5 MG PO SCH (10:00)
[2018-10-04 10:35] LABS: ANISOCYTOSIS 1+; ATYPICAL LYMPHS 1 %; BAND 1 % (0.0-2.0); Lymphocytes 6 % (24-44); Monocyte 1 % (0.0-12.0); Neutrophils 91 % (36.0-66.0); Platelet Estimate NORMAL (NORMAL); Total Cells Counted 100; Toxic Granulation 2+
== END 2018-10-04 09:30 | disposition home or self-care (01) | DRG 190 ==
LOC: ED 05:41 → MED SURG 10:23 → OBSVTOIN 10:40
PROVIDERS: ADMIT Family Medicine; ATTEND Family Medicine
DX: J44.1 Chronic obstructive pulmonary disease with (acute) exacerbation (principal); J96.90 Respiratory failure, unspecified, unspecified whether with hypoxia or hypercapnia; E11.9 Type 2 diabetes mellitus without complications; I10 Essential (primary) hypertension; I48.91 Unspecified atrial fibrillation; I50.9 Heart failure, unspecified; N28.9 Disorder of kidney and ureter, unspecified; E78.00 Pure hypercholesterolemia, unspecified; G47.33 Obstructive sleep apnea (adult) (pediatric); F41.9 Anxiety disorder, unspecified; Z79.01 Long term (current) use of anticoagulants; Z79.899 Other long term (current) drug therapy; Z99.81 Dependence on supplemental oxygen
CPT/HCPCS: 36415; 36600; 71045; 80048; 80053; 81001; 82375; 82803; 82962; 83880; 84484; 85025; 85379; 87040; 87631; 93268; 94150; 94640; 94667; 94668; 94760; 94762; 96365; 96374; 99285; G0378; J1940; J1956; J2060; J2930; J7609; A9270-GY

== ENCOUNTER 2018-11-16 14:03 | Day surgery (SDC) | payer MEDICARE, BC ==
[2018-11-16] MEDS ORDERED: Xylocaine 1% Vial 30 ML PF IJ ONE (14:04)
[2018-11-16] MEDS ORDERED: Marcaine 0.5% SDV 10 ML IJ ONE (14:04)
[2018-11-16] MEDS ORDERED: Depo-Medrol 40 MG/ML IM ONE (14:04)
--- NOTE | 2018-11-16 17:18 | XRAY ---
Indication: Left shoulder injection. Intraoperative fluoroscopy was provided for 24 seconds. Single digital spot image submitted for interpretation demonstrates needle tip projecting left superior glenohumeral joint. Small amount of contrast injected for needle tip placement. Correlate with intraoperative findings/report.
--- NOTE | 2018-11-16 17:18 | XRAY ---
Indication: Right shoulder injection. Intraoperative fluoroscopy was provided for 8 seconds. Single digital spot image submitted for interpretation demonstrates needle tip projecting right superior glenohumeral joint. Small amount of contrast injected for needle tip placement. Correlate with intraoperative findings/report.
--- NOTE | 2018-11-16 17:20 | XRAY ---
8 seconds fluoroscopy time in surgery for right shoulder injection.
--- NOTE | 2018-11-16 17:20 | XRAY ---
24 seconds fluoroscopy time in surgery for left shoulder injection.
== END 2018-11-16 16:50 | disposition home or self-care (01) ==
LOC: SDC-PAIN 14:03
PROVIDERS: ATTEND Psychiatry & Neurology Pain Medicine
DX: M19.012 Primary osteoarthritis, left shoulder (principal); M19.011 Primary osteoarthritis, right shoulder; E11.9 Type 2 diabetes mellitus without complications; I10 Essential (primary) hypertension; J44.9 Chronic obstructive pulmonary disease, unspecified; F41.9 Anxiety disorder, unspecified; R09.02 Hypoxemia; D64.9 Anemia, unspecified
CPT/HCPCS: 73030; 77002; J1030; J2001

== ENCOUNTER 2019-02-22 07:59 | Day surgery (SDC) | payer MEDICARE, BC ==
[2019-02-22] MEDS ORDERED: Xylocaine-Mpf 2% 5 Ml Vial IJ ONE (08:00)
[2019-02-22] MEDS ORDERED: Depo-Medrol 40 MG/ML IM ONE (08:00)
[2019-02-22] MEDS ORDERED: DIPRIVAN 200 MG/20 ML IV ONE (09:56)
[2019-02-22] MEDS ORDERED: Ketamine HCl 50 MG/ML ONE (09:57)
--- NOTE | 2019-02-22 12:16 | XRAY ---
Indication: Bilateral L4-S1 MBB. Intraoperative fluoroscopy was provided for 13 seconds. Single digital spot image submitted for interpretation demonstrates posterior needle tips projecting over the expected course of the left and right L4-S1 nerve roots. Correlate with intraoperative findings/report.
--- NOTE | 2019-02-22 12:34 | XRAY ---
13 seconds of fluoroscopy was used in surgery for a bilateral L4-L5, L5-S1 MBB.
[2019-02-22] MEDS ORDERED: Lactated Ringers 1,000 ML IV ONE (13:58)
== END 2019-02-22 10:20 | disposition home or self-care (01) ==
LOC: SDC-PAIN 07:59
PROVIDERS: ATTEND Psychiatry & Neurology Pain Medicine
DX: M47.816 Spondylosis without myelopathy or radiculopathy, lumbar region (principal); E11.9 Type 2 diabetes mellitus without complications; J44.9 Chronic obstructive pulmonary disease, unspecified; D64.9 Anemia, unspecified; F41.9 Anxiety disorder, unspecified; I10 Essential (primary) hypertension; Z79.899 Other long term (current) drug therapy
CPT/HCPCS: 64493; 64494; 72020; 77002; 82962; J1030; J2704

== ENCOUNTER 2019-03-08 09:46 | Day surgery (SDC) | payer MEDICARE, BC ==
[2019-03-08] MEDS ORDERED: Marcaine 0.5% SDV 10 ML IJ ONE (09:47)
[2019-03-08] MEDS ORDERED: Depo-Medrol 40 MG/ML IM ONE (09:47)
[2019-03-08] MEDS ORDERED: DIPRIVAN 200 MG/20 ML IV ONE (11:43)
[2019-03-08] MEDS ORDERED: Ketamine HCl 50 MG/ML ONE (11:43)
[2019-03-08] MEDS ORDERED: Lactated Ringers 1,000 ML IV ONE (14:48)
--- NOTE | 2019-03-08 15:16 | XRAY ---
13 seconds of fluoroscopy was used in surgery for bilateral L4-L5, L5-S1 MBB.
== END 2019-03-08 12:15 | disposition home or self-care (01) ==
LOC: SDC-PAIN 09:46
PROVIDERS: ATTEND Psychiatry & Neurology Pain Medicine
DX: M47.816 Spondylosis without myelopathy or radiculopathy, lumbar region (principal); E11.9 Type 2 diabetes mellitus without complications; J44.9 Chronic obstructive pulmonary disease, unspecified; D64.9 Anemia, unspecified; I10 Essential (primary) hypertension; Z79.899 Other long term (current) drug therapy; Z79.01 Long term (current) use of anticoagulants
CPT/HCPCS: 64493; 64494; 72020; 77002; 82962; J1030; J2704

== ENCOUNTER 2019-03-09 17:18 | Emergency (ER) | payer MEDICARE, BC ==
--- NOTE | 2019-03-09 17:31 | ERPHSYRPT ---
- History of Present Illness Time Seen by Provider: 03/09/19 17:31 Source: patient Exam Limitations: no limitations Physician History: 78 y/o diabetic white female presents with asymptomatic elevated blood sugar level on her monitor of high. pt did not take any medications. pt states she eats what she wants and does not follow a diabetic diet. pt arrives here in ED where accucheck is 389. pt admits to back steroid injection yesterday Timing/Duration: today Severity: mild Modifying Factors: Improves With: eating. Worsens With: other Associated Symptoms: denies symptoms, No nausea, No vomiting, No shortness of breath, No chest pain, No headaches, No syncope, No seizure, No weakness Allergies/Adverse Reactions: No Known Drug Allergies Allergy (Verified 03/09/19 17:46) Home Medications: Alendronate Sodium 70 mg [Fosamax 70 MG] 70 mg PO WEEKLY 10/01/18 [History ] Amlodipine Besylate 5 mg PO DAILY 10/01/18 [History] Apixaban [Eliquis] 5 mg PO BID 10/01/18 [History] Budesonide/Formoterol Fumarate [Symbicort 160-4.5 Mcg Inhaler] 2 puff IH BID [History] Bumetanide 1 mg [Bumex 1 mg] 0.5 mg PO DAILY 10/01/18 [History] Cholecalciferol (Vitamin D3) [Vitamin D] 400 unit PO LUNCH 10/01/18 [History] Duloxetine HCl 30 mg [Cymbalta 30 MG Capsule] 30 mg PO LUNCH 10/01/18 [ History] Isosorbide Mononitrate 30 mg [Imdur 30 MG] 30 mg PO DAILY 10/01/18 [History ] Magnesium 200 mg PO LUNCH 10/01/18 [History] Metoprolol Tartrate 25 mg [Lopressor 25MG Tab] 25 mg PO DAILY 10/01/18 [ History] Potassium Chloride 10 Meq Tab* [Klor Con 10 MEQ] 20 meq PO DAILY 10/01/18 [ History] Simvastatin [Zocor] 40 mg PO HS 10/01/18 [History] Tiotropium [place] [Spiriva] 1 puff IH DAILY 10/01/18 [History] Hx Tetanus, Diphtheria Vaccination/Date Given: No Hx Influenza Vaccination/Date Given: No Hx Pneumococcal Vaccination/Date Given: No - Review of Systems Constitutional: No Symptoms Eyes: No Symptoms Ears, Nose, & Throat: No Symptoms Respiratory: No Symptoms Cardiac: No Symptoms Abdominal/Gastrointestinal: No Symptoms Genitourinary Symptoms: No Symptoms Musculoskeletal: No Symptoms Neurological: No Symptoms Psychological: No Symptoms Endocrine: No Symptoms Hematologic/Lymphatic: No Symptoms Immunological/Allergic: No Symptoms All Other Systems: Reviewed and Negative - Past Medical History Pertinent Past Medical History: Yes Neurological History: Peripheral Neuropathy ENT History: Cataracts Cardiac History: Arrhythmia, Congestive Heart Failure, High Cholesterol, Hypertension Respiratory History: CHF, COPD, Other Endocrine Medical History: Diabetes Type II Musculoskeletal History: Fractures, Osteoporosis GI Medical History: No Pertinent History, Hernia History: Other Psycho-Social History: No Pertinent History Female Reproductive Disorders: No Pertinent History Other Medical History: 2017 fell injured kidney, fx vertebrae repaired with kyphoplasty, lung infection - Past Surgical History Past Surgical History: Yes Neuro Surgical History: Other Cardiac: No Pertinent History Respiratory: No Pertinent History Gastrointestinal: Cholecystectomy, Hernia Repair Genitourinary: Other Musculoskeletal: Orthopedic Surgery Female Surgical History: Section Other Surgical History: back surgery; broken ribs with cement; Left wrist surgery; bladder and rectal prolapse - Social History Smoking Status: Never smoker Exposure to second hand smoke: Yes Drug Use: none Patient Lives Alone: No - Nursing Vital Signs Nursing Vital Signs: Initial Vital Signs Temperature 98.4 F 03/09/19 17:26 Pulse Rate 66 03/09/19 17:26 Respiratory Rate 18 03/09/19 17:26 Blood Pressure 177/68 03/09/19 17:26 O2 Sat by Pulse Oximetry 99 03/09/19 17:26 Pain Scale Pain Intensity 0 - Physical Exam General Appearance: no apparent distress, alert Eye Exam: PERRL/EOMI, eyes nml inspection Ears, Nose, Throat Exam: normal ENT inspection, moist mucous membranes Neck Exam: normal inspection, non-tender, supple, full range of motion Respiratory Exam: normal breath sounds, lungs clear, airway intact, No chest tenderness, No respiratory distress Cardiovascular Exam: regular rate/rhythm, normal heart sounds, normal peripheral pulses Gastrointestinal/Abdomen Exam: soft, normal bowel sounds, No tenderness Pelvic Exam: not done Rectal Exam: not done Back Exam: normal inspection, normal range of motion, No CVA tenderness, No vertebral tenderness Extremity Exam: normal inspection, normal range of motion, pelvis stable Neurologic Exam: alert, oriented x 3, cooperative, cementer oil well II-XII nml as tested Skin Exam: normal color, warm, dry Lymphatic Exam: No adenopathy SpO2 Interpretation: normal O2 Delivery: Room Air - Course Nursing assessment & vital signs reviewed: Yes Ordered Tests: Active Orders 24 hr Category Date Time Status ACCUCHECK [Accucheck] STAT Care 03/09/19 17:38 Active IV Insertion STAT Care 03/09/19 17:38 Active Oxygen-ED Only Nasal Cannula 2 lpm Care 03/09/19 17:39 Active BMP Stat Lab 03/09/19 17:30 Completed Medication Summary Discontinued Medications Generic Name Dose Route Start Last Admin Trade Name Freq PRN Reason Stop Dose Admin Sodium Chloride 500 mls @ 500 mls/hr 03/09/19 18:40 03/09/19 18:45 Sodium Chloride 0.9% 500 Ml IV 03/09/19 19:39 500 mls/hr .Q1H ONE Administration Sodium Chloride Confirm 03/09/19 18:42 Sodium Chloride 0.9% 500 Ml Administered 03/09/19 18:43 Dose 500 mls @ ud IV .STK-MED ONE Insulin Human Regular 3 unit 03/09/19 20:07 03/09/19 20:31 Novolin R IV 03/09/19 20:08 3 unit STAT ONE Administration Insulin Human Regular Confirm 03/09/19 20:30 Novolin R Administered 03/09/19 20:31 Dose 1 unit .ROUTE .STK-MED ONE Lab/Rad Data: Laboratory Result Diagrams 03/09/19 17:30 Laboratory Results 03/09/19 Range/Units 17:30 Sodium 138 (137-145) mmol/L Potassium 4.7 (3.5-5.1) mmol/L Chloride 97 L (98-107) mmol/L Carbon Dioxide 27 (22-30) mmol/L Anion Gap 18.9 H (5-15) MEQ/L BUN 41 H (7-17) mg/dL Creatinine 1.36 H (0.52-1.04) mg/dL Estimated GFR 39.9 ML/MIN Glucose 405 H (74-106) mg/dL Calcium 9.8 (8.4-10.2) mg/dL - Progress Progress: unchanged, re-examined Counseled pt/family regarding: lab results, diagnosis, need for follow-up - Departure Departure Disposition: Home Clinical Impression: Hyperglycemia Condition: Stable Critical Care Time: No Critical Care Time(excluding separately billable procedures): Critical 30-74 mins Referrals: ADA TOBIN [Primary Care Provider] - Additional Instructions: monitor your blood glucose closely. follow up with your primary doctor for further management
[2019-03-09 17:46] VITALS: O2SAT 99
[2019-03-09] MEDS ORDERED: Sodium Chloride 0.9% 500 ML 500 ML IV ONE ×2 (18:40→18:42)
[2019-03-09 18:50] LABS: ANION GAP 18.9 MEQ/L (5-15); Calcium 9.8 mg/dL (8.4-10.2); Creatinine 1 1.36 mg/dL (0.52-1.04); Potassium 4.7 mmol/L (3.5-5.1)
[2019-03-09 18:52] VITALS: BP 134/57; PULSE 65
[2019-03-09] MEDS ORDERED: NovoLIN R IV ONE (20:07)
[2019-03-09] MEDS ORDERED: NovoLIN R ONE (20:30)
== END 2019-03-09 21:32 | disposition home or self-care (01) ==
LOC: ED 17:18
DX: E11.65 Type 2 diabetes mellitus with hyperglycemia (principal); I10 Essential (primary) hypertension; E78.00 Pure hypercholesterolemia, unspecified; I50.9 Heart failure, unspecified; J44.9 Chronic obstructive pulmonary disease, unspecified; M81.0 Age-related osteoporosis without current pathological fracture
CPT/HCPCS: 36000; 36415; 80048; 82962; 96360; 96372; 99284; 99291; A9270-GY

== ENCOUNTER 2019-05-03 07:32 | Day surgery (SDC) | payer MEDICARE, BC ==
[2019-05-03] MEDS ORDERED: Depo-Medrol 40 MG/ML IM ONE (07:33)
[2019-05-03] MEDS ORDERED: Xylocaine 1% Vial 30 ML PF IJ ONE (07:33)
[2019-05-03] MEDS ORDERED: Marcaine 0.5% SDV 10 ML IJ ONE (07:33)
[2019-05-03] MEDS ORDERED: DIPRIVAN 200 MG/20 ML IV ONE (07:48)
[2019-05-03] MEDS ORDERED: Ketamine HCl 50 MG/ML ONE (07:48)
--- NOTE | 2019-05-03 10:39 | XRAY ---
Indication: Left L4-S1 RFA. Intraoperative fluoroscopy was provided for 24 seconds. 2 digital spot images submitted for interpretation demonstrates posterior needle tips projecting over the expected course of the left L4-S1 nerve roots. Correlate with intraoperative findings/report.
--- NOTE | 2019-05-03 10:41 | XRAY ---
24 seconds fluoroscopy time in surgery for left L4-S1 RFA.
[2019-05-03] MEDS ORDERED: Lactated Ringers 1,000 ML IV ONE (15:16)
== END 2019-05-03 09:50 | disposition home or self-care (01) ==
LOC: SDC-PAIN 07:32
PROVIDERS: ATTEND Psychiatry & Neurology Pain Medicine
DX: M47.816 Spondylosis without myelopathy or radiculopathy, lumbar region (principal); E11.9 Type 2 diabetes mellitus without complications; I10 Essential (primary) hypertension; J44.9 Chronic obstructive pulmonary disease, unspecified; I50.9 Heart failure, unspecified; D64.9 Anemia, unspecified; Z79.899 Other long term (current) drug therapy; Z79.01 Long term (current) use of anticoagulants
CPT/HCPCS: 64635; 64636; 72100; 77002; 82962; 99100; J1030; J2001; J2704

== ENCOUNTER 2019-07-05 09:11 | Day surgery (SDC) | payer MEDICARE, BC ==
[2019-07-05] MEDS ORDERED: Depo-Medrol 40 MG/ML IM ONE (09:12)
[2019-07-05] MEDS ORDERED: Xylocaine 1% Vial 30 ML PF IJ ONE (09:12)
[2019-07-05] MEDS ORDERED: Marcaine 0.5% SDV 10 ML IJ ONE (09:12)
[2019-07-05] MEDS ORDERED: Ketamine HCl 50 MG/ML ONE (10:29)
[2019-07-05] MEDS ORDERED: DIPRIVAN 200 MG/20 ML IV ONE (10:29)
--- NOTE | 2019-07-05 13:06 | XRAY ---
Indication: Right L4-S1 RFA. Intraoperative fluoroscopy was provided for 13 seconds. 3 digital spot images submitted for interpretation demonstrates posterior needle tips projecting over the expected course of the right L4-S1 nerve roots. Correlate with intraoperative findings/report.
--- NOTE | 2019-07-05 13:13 | XRAY ---
13 seconds fluoroscopy time in surgery for right L4-S1 RFA.
[2019-07-05] MEDS ORDERED: Lactated Ringers 1,000 ML IV ONE (15:40)
== END 2019-07-05 10:55 | disposition home or self-care (01) ==
LOC: SDC-PAIN 09:11
PROVIDERS: ATTEND Psychiatry & Neurology Pain Medicine
DX: M47.816 Spondylosis without myelopathy or radiculopathy, lumbar region (principal); M47.817 Spondylosis without myelopathy or radiculopathy, lumbosacral region; E11.9 Type 2 diabetes mellitus without complications; I10 Essential (primary) hypertension; J44.9 Chronic obstructive pulmonary disease, unspecified; D64.9 Anemia, unspecified; Z79.899 Other long term (current) drug therapy
CPT/HCPCS: 64635; 64636; 72100; 77002; 82962; 99100; J1030; J2001; J2704

== ENCOUNTER 2019-10-20 06:38 | Day surgery (SDC) | payer MEDICARE, BC ==
[~2019-10-20 06:38] MED LIST: Lactated Ringers 1,000 ML IV SCH
[2019-10-20] MEDS ORDERED: Xylocaine-Mpf 2% 5 Ml Vial ONE (07:44)
[2019-10-20] MEDS ORDERED: Ketamine HCl 50 MG/ML ONE (07:44)
[2019-10-20] MEDS ORDERED: DIPRIVAN 200 MG/20 ML IV ONE (07:44)
--- NOTE | 2019-10-20 09:49 | OP ---
SURGERY DATE/TIME: 10/20/2019 0757 PREOPERATIVE DIAGNOSIS: Chronic nausea, history of gastric polyps. POSTOPERATIVE DIAGNOSIS: Moderate gastritis and small mild to moderate gastric polyps. PROCEDURE: Esophagogastroduodenoscopy with cold forceps biopsy. SURGEON: Dr. Richardson. ANESTHESIA: Medications were given by the anesthesia department. HISTORY: The patient is an 79 year old white female who reports that she has been having trouble over the past year with issues of chronic nausea. It is noted that she is on Ozempic and has diabetes type 2. The patient reports that she has been on no new medications and requests the procedure be performed to find out what is going on. The patient was appraised of the risks of the procedure including the risk of perforation, phlebitis, untoward reaction to medication, bleeding and missed lesions. The patient verbalized her understanding and desired to have the procedure performed. DESCRIPTION OF PROCEDURE: The patient was given the medications by the anesthesia department. She had continuous pulse oximetry, ECG monitoring, intermittent blood pressure monitoring and tidal CO2 monitoring during the examination. She was placed in the left lateral decubitus position. A bite block was placed and the flexible Olympus gastroscope was used to intubate the oropharynx. A view of the larynx was obtained and was normal. The scope was easily introduced in the esophagus which appeared to be normal throughout its length. The stomach was entered where normal gastric rugal folds were seen and these distended nicely with insufflation of air. The scope was passed along the greater curvature of the stomach to the antrum. There appeared to be mild erythema. The pylorus was encountered and intubated. Duodenum inspected and found to be normal. The scope is withdrawn towards the stomach. Again retroflex view was obtained of the lesser curvature, fundus and cardia regions of the stomach and these appeared to be essentially normal other than small gastric polyps that we noted in the gastric body. Biopsies were obtained from the gastric antrum to rule out the presence of Helicobacter pylori-type organisms. The scope was then removed from the patient who tolerated the procedure well and was sent back to outpatient recovery in good condition.
[2019-10-20 10:15] VITALS: BP 127/68; PULSE 76; O2SAT 99
== END 2019-10-20 09:35 | disposition home or self-care (01) ==
LOC: SDC 06:38
PROVIDERS: ATTEND Family Medicine
DX: K29.70 Gastritis, unspecified, without bleeding (principal); K31.7 Polyp of stomach and duodenum; E11.9 Type 2 diabetes mellitus without complications; Z87.19 Personal history of other diseases of the digestive system; J44.9 Chronic obstructive pulmonary disease, unspecified
CPT/HCPCS: 82962; 88305; 88342; 93005; 99100; J2704

== ENCOUNTER 2020-02-28 09:21 | Day surgery (SDC) | payer MEDICARE, BC ==
[~2020-02-28 09:21] MED LIST changes: +DIPRIVAN 200 MG/20 ML IV ONE; +Ketamine HCl 50 MG/ML ONE; -Lactated Ringers 1,000 ML IV SCH
[2020-02-28] MEDS ORDERED: Xylocaine 1% Vial 30 ML PF IJ ONE (09:22)
[2020-02-28] MEDS ORDERED: Depo-Medrol 40 MG/ML IM ONE (09:22)
[2020-02-28] MEDS ORDERED: BUPIVACAINE 0.5% VIAL IJ ONE (09:22)
[2020-02-28] MEDS ORDERED: Lactated Ringers 1,000 ML IV ONE (13:52)
--- NOTE | 2020-02-29 15:05 | XRAY ---
32 seconds fluoroscopy time in surgery for left L4-S1 RFA.
--- NOTE | 2020-03-02 22:26 | XRAY ---
Indication: Left L4-S1 are F8. Intraoperative fluoroscopy was provided for 32 seconds. 4 digital spot images submitted for interpretation demonstrate posterior spinal needle tips projected over the left L4-S1 nerve roots. Correlate with intraoperative findings/report.
== END 2020-02-28 11:16 | disposition home or self-care (01) ==
LOC: SDC-PAIN 09:21
PROVIDERS: ATTEND Psychiatry & Neurology Pain Medicine
DX: M47.816 Spondylosis without myelopathy or radiculopathy, lumbar region (principal); M47.817 Spondylosis without myelopathy or radiculopathy, lumbosacral region; E11.9 Type 2 diabetes mellitus without complications; J44.9 Chronic obstructive pulmonary disease, unspecified; I10 Essential (primary) hypertension; D64.9 Anemia, unspecified; R09.02 Hypoxemia; I50.9 Heart failure, unspecified; F41.9 Anxiety disorder, unspecified; Z79.01 Long term (current) use of anticoagulants; Z79.899 Other long term (current) drug therapy
CPT/HCPCS: 64635; 64636; 72100; 77002; 82962; 99100; J1030; J2001; J2704

== ENCOUNTER 2020-04-22 09:54 | Observation (INO) | payer MEDICARE, BC ==
[2020-04-22 10:44] LABS: Hematocrit 35.2 % (35-47); Hemoglobin 11.3 gm/dl (12.0-16.0); Mean Cell Volume 91.4 fl (78-100); Mean Corpuscular Hemoglobin 29.4 pg (26-32); Mean Corpuscular Hgb Concent. 32.1 g/dl (32-36); Mean Platelet Volume 9.6 fl (7.5-11.0); Platelet Count 252 K/mm3 (150-450); Red Blood Count 3.85 M/mm3 (4.1-5.4); Red Cell Distribution Width 14.2 % (11.5-14.0); White Blood Count 13.5 K/mm3 (4.0-10.5)
[2020-04-22 10:52] LABS: INR 1.44 (0.8-3.0); PROTIME 16.3 SECONDS (9.95-12.35)
--- NOTE | 2020-04-22 10:55 | ERPHSYRPT ---
- History of Present Illness Source: patient Exam Limitations: other (Poor historian) Patient Subjective Stated Complaint: Pt woke in the middle of the night with chest pain and shortness of breath Triage Nursing Assessment: Pt arrived by EMS, mariaa lower ext edema, pulses n ormal, hypertensive, rates chest pain as 3/10, 99.0 temp, lungs clear, Physician History: 79 yo wf w dyspnea x 4 hours. She also has some mid-sternal chest pain described as sharp wo radiation. Pt is 2L O2 dep due to CHF/COPD. She denies fever/cough/nausea/vomiting/diarrhea/melena/hematochezia. Timing/Duration: other (4hours) Activities at Onset: sleep Severity of Dyspnea-Max: moderate Severity of Dyspnea-Current: moderate Possible Cause: frequent episodes Modifying Factors: Improves With: exertion Associated Symptoms: chest pain/discomfort, edema, No anxiety, No cough, No fever, No insomnia, No loss of appetite, No lightheadedness, No wheezing, No weakness, No ankle swelling, No chills, No hemoptysis, No calf pain, No dizziness, No heaviness, No heart racing, No lightheadedness, No leg swelling, No muscle spasms feet, No muscle spasms hands, No painful breathing, No productive cough, No sweating, No tightness, No tingling face Allergies/Adverse Reactions: No Known Drug Allergies Allergy (Verified 04/22/20 10:06) Home Medications: Alendronate Sodium 70 mg [Fosamax 70 MG] 70 mg PO WEEKLY 10/01/18 [History] Amlodipine Besylate 10 mg PO DAILY 10/01/18 [History] Budesonide/Formoterol Fumarate [Symbicort 160-4.5 Mcg Inhaler] 2 puff IH BID 10/01/18 [History] Bumetanide 1 mg [Bumex 1 mg] 1 mg PO DAILY 10/01/18 [History] Cholecalciferol (Vitamin D3) [Vitamin D] 400 unit PO LUNCH 10/01/18 [History] Duloxetine HCl 30 mg [Cymbalta 30 MG Capsule] 30 mg PO BID 10/01/18 [History] Isosorbide Mononitrate 30 mg [Imdur 30 MG] 30 mg PO DAILY 10/01/18 [History] Magnesium 400 mg PO LUNCH 10/01/18 [History] Metoprolol Tartrate 25 mg [Lopressor 25MG Tab] 25 mg PO DAILY 10/01/18 [History] Potassium Chloride 10 Meq Tab* [Klor Con 10 MEQ] 20 meq PO DAILY 10/01/18 [History] Simvastatin [Zocor] 40 mg PO HS 10/01/18 [History] Tiotropium [place] [Spiriva] 1 puff IH DAILY 10/01/18 [History] Cyanocobalamin 1000 Mcg/ml [Cyanocobalamin B-12 1000 MCG/ML] 1,000 mcg IJ UD 10/16/19 [History] Linaclotide [Linzess] 145 mcg PO DAILY 10/16/19 [History] PANTOPRAZOLE 40 mg Tablet [Protonix 40MG Tablet] 40 mg PO QAM 10/16/19 [History] Buspirone HCl 5 mg PO BID 04/22/20 [History] Insulin Detemir [Levemir] 0 units SQ UD 04/22/20 [History] Insulin NPH Human Recom [Novolin N] 15 unit SQ BID 04/22/20 [History] Metformin HCl 500 mg PO DAILY 04/22/20 [History] Spironolactone 25 mg [Aldactone 25 MG] 25 mg PO DAILY 04/22/20 [History] allopurinoL [Allopurinol] 100 mg PO DAILY 04/22/20 [History] Hx Tetanus, Diphtheria Vaccination/Date Given: No Hx Influenza Vaccination/Date Given: No Hx Pneumococcal Vaccination/Date Given: No Travel Risk - International Travel Have you traveled outside of the country in past 3 weeks: No - Coronavirus Screening Are you exhibiting any of the following symptoms?: Yes - Review of Systems Constitutional: Fatigue, No Fever, No Chills, No Lethargy, No Malaise, No Night Sweats, No Weakness, No Weight Loss Eyes: No Symptoms Ears, Nose, & Throat: No Symptoms Respiratory: Dyspnea, Dyspnea on Exertion ([place]O), No Cough, No Cyanosis, No Stridor, No Wheezing Cardiac: Chest Pain, Edema, PND, No Palpitations, No Syncope, No Orthopnea Abdominal/Gastrointestinal: No Symptoms Genitourinary Symptoms: No Symptoms Musculoskeletal: No Symptoms Skin: No Symptoms Neurological: No Symptoms Psychological: No Symptoms Endocrine: No Symptoms Hematologic/Lymphatic: No Symptoms Immunological/Allergic: No Symptoms - Past Medical History Pertinent Past Medical History: Yes Neurological History: Peripheral Neuropathy ENT History: Cataracts Cardiac History: Arrhythmia, Congestive Heart Failure, High Cholesterol, Hyperte nsion Respiratory History: CHF, COPD, Other Endocrine Medical History: Diabetes Type II Musculoskeletal History: Fractures, Osteoporosis GI Medical History: No Pertinent History, Hernia History: Other Psycho-Social History: No Pertinent History Female Reproductive Disorders: No Pertinent History Other Medical History: 2017 fell injured kidney, fx vertebrae repaired with kyphoplasty, lung infection - Past Surgical History Past Surgical History: Yes Neuro Surgical History: Other Cardiac: No Pertinent History Respiratory: No Pertinent History Gastrointestinal: Cholecystectomy, Hernia Repair Genitourinary: Other Musculoskeletal: Orthopedic Surgery Female Surgical History: Section Other Surgical History: back surgery; broken ribs with cement; Left wrist surgery; bladder and rectal prolapse - Social History Smoking Status: Never smoker Exposure to second hand smoke: No Drug Use: none Patient Lives Alone: No Significant Family History: no pertinent family hx - Nursing Vital Signs Nursing Vital Signs: Initial Vital Signs Temperature 99.1 F 04/22/20 09:55 Pulse Rate 84 04/22/20 09:55 Respiratory Rate 35 H 04/22/20 09:55 Blood Pressure 157/96 04/22/20 09:55 O2 Sat by Pulse Oximetry 100 04/22/20 09:55 Pain Scale Pain Intensity 0 - Physical Exam General Appearance: no apparent distress Eye Exam: PERRL/EOMI, eyes nml inspection Ears, Nose, Throat Exam: hearing grossly normal, normal ENT inspection, normal pharynx Neck Exam: normal inspection, non-tender, supple, full range of motion, No Brudzinski, No Kernig's, No meningismus, No carotid bruit, No JVD Respiratory Exam: airway intact, crackles/rales (Rales bases B), No respiratory distress Cardiovascular/Chest Exam: other (IR-IR w / DANYELL) Abdominal/Gastrointestinal Exam: soft (Obese), No tenderness, No distention, No mass, No ecchymosis, No pulsatile mass Extremity Exam: non-tender, swelling (1+ B edema which pt states is stable) Neurologic Exam: alert, oriented x 3, cooperative, sole painter II-XII nml as tested, normal mood/affect, sensation nml, No motor deficits, No sensory deficit Skin Exam: normal color, warm, dry, No rash Lymphatic Exam: No adenopathy SpO2 Interpretation: normal SpO2: 100 O2 Delivery: Nasal Cannula (2L) - Course EKG Interpreted by Me: RATE (Afib/Normal QT-QTc/Poor R wave progression/Poor quality tracing) - Radiology Exams Chest X-ray Interpretation: Discussed w/ radiologist (Developing CHF) - CT Exams Chest CT Interpretation: Discussed w/radiologist (Diffuse B groundglass opacities favoring pneumonia) Ordered Tests: Active Orders 24 hr Category Date Time Status Bedrest ROUTINE Activity 04/22/20 15:28 Active Field Service Tech STAT Care 04/22/20 15:28 Active Code Status Order ROUTINE Care 04/22/20 15:28 Active EKG-ER Only STAT Care 04/22/20 10:08 Active Elevate HOB ROUTINE Care 04/22/20 15:23 Active Spear [Catheter-[place] Spear] STAT Care 04/22/20 11:45 Active IV Care Q6H Care 04/22/20 15:28 Active Intake and Output Q12H Care 04/22/20 15:23 Active Isolation, Initiate & Maintain Q6H Care 04/22/20 15:[address] in Observation ROUTINE Care 04/22/20 15:28 Active Telemetry q4h Care 04/22/20 15:23 Active Vital Signs Q4H Care 04/22/20 15:23 Active Consistent Carbohydrate Diet 2000 Calorie Diet 04/22/20 Dinner Active CHEST 1 VIEW (PORTABLE) Stat Exams 04/22/20 10:08 Completed CHEST WITHOUT CONTRAST [CT] Stat Exams 04/22/20 11:41 Completed BLOOD CULTURE Stat Lab 04/22/20 14:05 Received CBC AM.LAB Lab 04/23/20 04:00 Ordered CBC W DIFF Stat Lab 04/22/20 10:15 Completed CMP AM.LAB Lab 04/23/20 04:00 Ordered CMP Stat Lab 04/22/20 10:15 Completed Lactic Acid Stat Lab 04/22/20 11:11 Completed Manual Differential NC Stat Lab 04/22/20 10:15 Completed NT PRO BNP Stat Lab 04/22/20 10:15 Completed PROTIME WITH INR Stat Lab 04/22/20 10:15 Completed PTT Stat Lab 04/22/20 10:15 Completed TROPONIN Q3H Lab 04/22/20 10:15 Completed TROPONIN Q3H Lab 04/22/20 12:48 Completed TROPONIN Q3H Lab 04/22/20 16:15 Ordered TROPONIN Q3H Lab 04/22/20 19:15 Ordered TROPONIN Q3H Lab 04/22/20 22:15 Ordered EKG REPEAT IN AM RT 04/22/20 15:23 Active Respiratory Therapy Consult ROUTINE RT 04/22/20 15:28 Active Transfer Order Routine Transfer 04/22/20 Ordered Medication Summary Generic Name Dose Route Start Last Admin Trade Name Freq PRN Reason Stop Dose Admin Albuterol/Ipratropium 2 puff 04/22/20 15:30 Combivent Inhaler Common Canister IH 05/22/20 15:29 UD BESSIE Apixaban 5 mg 04/22/20 22:00 Eliquis 2.5 Mg Tablet PO 05/22/20 21:59 BID BESSIE Furosemide 40 mg 04/22/20 15:45 Lasix 40 Mg/4 Ml IV 05/22/20 15:44 Q12H BESSIE Azithromycin 500 mg in 250 mls @ 250 mls/hr 04/23/20 10:00 Zithromax 500 Mg/ 250 Ml Nacl Premix IV 05/23/20 09:59 Q24H10 BESSIE Ceftriaxone Sodium/Dextrose 1 g in 50 mls @ 100 mls/hr 04/23/20 10:00 Rocephin 1 Gm-D5w 50 Ml Bag IV 05/23/20 09:59 Q24H10 BESSIE Insulin Human Lispro 0 unit 04/22/20 15:23 Humalog SQ 05/22/20 15:22 UD PRN HYPERGLYCEMIA Ondansetron HCl 4 mg 04/22/20 15:23 Zofran 4 Mg/2 Ml Vial IV 05/22/20 15:22 Q6H PRN PRN NAUSEA/VOMITING Discontinued Medications Generic Name Dose Route Start Last Admin Trade Name Freq PRN Reason Stop Dose Admin Furosemide 40 mg 04/22/20 10:57 04/22/20 11:43 Furosemide 100mg/10 Ml Vial IV 04/22/20 10:58 40 mg STAT ONE Administration Furosemide Confirm 04/22/20 11:04 Lasix 40 Mg/4 Ml Administered 11/16/20 11:05 Dose 40 mg .ROUTE .STK-MED ONE Ceftriaxone Sodium/Dextrose Confirm 04/22/20 15:17 Rocephin 1 Gm-D5w 50 Ml Bag Administered 04/22/20 15:18 Dose 1 g in 50 mls @ ud IV .STK-MED ONE Ceftriaxone Sodium/Dextrose 1 g in 50 mls @ 100 mls/hr 04/22/20 15:18 04/22/20 15:19 Rocephin 1 Gm-D5w 50 Ml Bag IV 04/22/20 15:47 100 mls/hr STAT STA 100 mls/hr Administration Lorazepam 0.5 mg 04/22/20 12:05 04/22/20 12:09 Ativan 2 Mg/1 Ml Vial IV 04/22/20 12:06 0.5 mg STAT ONE Administration Lorazepam Confirm 04/22/20 12:08 Ativan 2 Mg/1 Ml Vial Administered 04/22/20 12:09 Dose 2 mg .ROUTE .STK-MED ONE Lab/Rad Data: Laboratory Result Diagrams 04/22/20 10:15 04/22/20 10:15 Laboratory Results 04/22/20 04/22/20 04/22/20 Range/Units 14:00 12:48 11:11 WBC (4.0-10.5) K/mm3 RBC (4.1-5.4) M/mm3 Hgb (12.0-16.0) gm/dl Hct (35-47) % MCV (78-100) fl MCH (26-32) pg MCHC (32-36) g/dl RDW (11.5-14.0) % Plt Count (150-450) K/mm3 MPV (7.5-11.0) fl Segmented Neutrophils (36.0-66.0) % Band Neutrophils (0.0-2.0) % Lymphocytes (Manual) (24-44) % Monocytes (Manual) (0.0-12.0) % Eosinophils (Manual) (0.00-3.0) % Platelet Estimate (NORMAL) RBC Morphology PT (9.95-12.35) SECONDS INR (0.8-3.0) APTT (25.3-37.0) SECONDS Sodium (137-145) mmol/L Potassium (3.5-5.1) mmol/L Chloride (98-107) mmol/L Carbon Dioxide (22-30) mmol/L Anion Gap (5-15) MEQ/L BUN (7-17) mg/dL Creatinine (0.52-1.04) mg/dL Estimated GFR ML/MIN Glucose (74-106) mg/dL Lactic Acid 1.1 (0.4-2.0) Calcium (8.4-10.2) mg/dL Total Bilirubin (0.2-1.3) mg/dL AST (14-36) U/L ALT (0-35) U/L Alkaline Phosphatase (38-126) U/L Troponin I < 0.012 (0.000-0.034) ng/mL NT-Pro-B Natriuret Pep (0-1800) pg/mL Serum Total Protein (6.3-8.2) g/dL Albumin (3.5-5.0) g/dL SARS-CoV-2 (PCR) NEGATIVE (NEGATIVE) 04/22/20 04/22/20 04/22/20 Range/Units 10:15 10:15 10:15 WBC (4.0-10.5) K/mm3 RBC (4.1-5.4) M/mm3 Hgb (12.0-16.0) gm/dl Hct (35-47) % MCV (78-100) fl MCH (26-32) pg MCHC (32-36) g/dl RDW (11.5-14.0) % Plt Count (150-450) K/mm3 MPV (7.5-11.0) fl Segmented Neutrophils (36.0-66.0) % Band Neutrophils (0.0-2.0) % Lymphocytes (Manual) (24-44) % Monocytes (Manual) (0.0-12.0) % Eosinophils (Manual) (0.00-3.0) % Platelet Estimate (NORMAL) RBC Morphology PT 16.3 H (9.95-12.35) SECONDS INR 1.44 (0.8-3.0) APTT 32.0 (25.3-37.0) SECONDS Sodium 137 (137-145) mmol/L Potassium 4.3 (3.5-5.1) mmol/L Chloride 106 (98-107) mmol/L Carbon Dioxide 28 (22-30) mmol/L Anion Gap 7.6 (5-15) MEQ/L BUN 20 H (7-17) mg/dL Creatinine 0.90 (0.52-1.04) mg/dL Estimated GFR > 60.0 ML/MIN Glucose 157 H (74-106) mg/dL Lactic Acid (0.4-2.0) Calcium 9.0 (8.4-10.2) mg/dL Total Bilirubin 0.70 (0.2-1.3) mg/dL AST 15 (14-36) U/L ALT 13 (0-35) U/L Alkaline Phosphatase 72 (38-126) U/L Troponin I < 0.012 (0.000-0.034) ng/mL NT-Pro-B Natriuret Pep 2160 H (0-1800) pg/mL Serum Total Protein 5.9 L (6.3-8.2) g/dL Albumin 3.5 (3.5-5.0) g/dL SARS-CoV-2 (PCR) (NEGATIVE) 04/22/20 Range/Units 10:15 WBC 13.5 H (4.0-10.5) K/mm3 RBC 3.85 L (4.1-5.4) M/mm3 Hgb 11.3 L (12.0-16.0) gm/dl Hct 35.2 (35-47) % MCV 91.4 (78-100) fl MCH 29.4 (26-32) pg MCHC 32.1 (32-36) g/dl RDW 14.2 H (11.5-14.0) % Plt Count 252 (150-450) K/mm3 MPV 9.6 (7.5-11.0) fl Segmented Neutrophils 85 H (36.0-66.0) % Band Neutrophils 1 (0.0-2.0) % Lymphocytes (Manual) 10 L (24-44) % Monocytes (Manual) 3 (0.0-12.0) % Eosinophils (Manual) 1 (0.00-3.0) % Platelet Estimate NORMAL (NORMAL) RBC Morphology NORMAL PT (9.95-12.35) SECONDS INR (0.8-3.0) APTT (25.3-37.0) SECONDS Sodium (137-145) mmol/L Potassium (3.5-5.1) mmol/L Chloride (98-107) mmol/L Carbon Dioxide (22-30) mmol/L Anion Gap (5-15) MEQ/L BUN (7-17) mg/dL Creatinine (0.52-1.04) mg/dL Estimated GFR ML/MIN Glucose (74-106) mg/dL Lactic Acid (0.4-2.0) Calcium (8.4-10.2) mg/dL Total Bilirubin (0.2-1.3) mg/dL AST (14-36) U/L ALT (0-35) U/L Alkaline Phosphatase (38-126) U/L Troponin I (0.000-0.034) ng/mL NT-Pro-B Natriuret Pep (0-1800) pg/mL Serum Total Protein (6.3-8.2) g/dL Albumin (3.5-5.0) g/dL SARS-CoV-2 (PCR) (NEGATIVE) - Progress Progress Note: 04/22/20 13:36 Since Pt has diffuse groundglass alveolar opacities favoring pneumonia on CT, pt has to go to Covid Unit per administration. Rapid Covid19 test done. 04/22/20 16:01 Admit to Covid Unit per Dr. Wilkinson. Pt covid neg, so talked to Dr. Cast who wanted pt to go Covid Unit. Dr. Wilkinson wanted Dr. Cast to admit pt. Admit per Dr. Cast. Pt given 1gm IV Rocephin in ER. Also given 0.5mg IV Ativan earlier in visit for anxiety, which seemed to help pt. Discussed with : Yesica Lewis Counseled pt/family regarding: lab results, diagnosis, rad results - Departure Departure Disposition: Observation Clinical Impression: Pneumonia, Congestive heart failure Condition: Stable Critical Care Time: No Referrals: ADA CAST [Primary Care Provider] - Instructions: Heart Failure
[2020-04-22] MEDS ORDERED: Furosemide 100mg/10 ml Vial IV ONE (10:57)
--- NOTE | 2020-04-22 10:57 | XRAY ---
Indication: Short of breath. Dyspnea. Comparison: March 22, 2019. Portable apical lordotic chest again demonstrates cardiomegaly with now small bibasilar effusions favoring mild/early cardiac decompensation. Superimposed pneumonia not completely excluded. Stable osteopenia, bony degenerative changes, and thoracolumbar kyphoplasty.
[2020-04-22 11:02] LABS: BAND 1 % (0.0-2.0); Eosinophil 1 % (0.00-3.0); Lymphocytes 10 % (24-44); Monocyte 3 % (0.0-12.0); Neutrophils 85 % (36.0-66.0); Platelet Estimate NORMAL (NORMAL); Total Cells Counted 100
[2020-04-22] MEDS ORDERED: Lasix 40 MG/4 ML ONE (11:04)
[2020-04-22 11:08] LABS: ALBUMIN 3.5 g/dL (3.5-5.0); ALKALINE PHOSPHATASE 72 U/L (38-126); ANION GAP 7.6 MEQ/L (5-15); BLOOD UREA NITROGEN 20 mg/dL (7-17); CHLORIDE 106 mmol/L (98-107); Carbon Dioxide 28 mmol/L (22-30); EST GLOMERULAR FILTRATION RATE > 60.0 ML/MIN; Glucose 157 mg/dL (74-106); NT PRO BNP 2160 pg/mL (0-1800); Potassium 4.3 mmol/L (3.5-5.1); SGOT/AST 15 U/L (14-36); SGPT/ALT 13 U/L (0-35); SODIUM 137 mmol/L (137-145); Total Protein 5.9 g/dL (6.3-8.2)
[2020-04-22] MEDS ORDERED: Ativan 2 MG/1 ML VIAL IV ONE (12:05)
[2020-04-22] MEDS ORDERED: Ativan 2 MG/1 ML VIAL ONE (12:08)
--- NOTE | 2020-04-22 13:04 | XRAY ---
Indication: Dyspnea. Mid chest pain. CHF. Multiple contiguous axial images obtained through the chest without contrast. Comparison: None Lungs demonstrates patchy hazy groundglass alveolar opacities bilaterally and bilateral mid to lower lung subsegmental atelectasis/scarring. No consolidation/effusion. A few tiny right lung calcified granulomas. Heart is enlarged with mitral valve calcifications. No pericardial effusion. Aorta is mildly calcified without aneurysmal dilatation. Small paratracheal/subcarinal and tiny right hilar calcified nodes. No pathologic mediastinal lymphadenopathy. Bony thorax demonstrates osteopenia and T11-L1 kyphoplasty. 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 Impression: 1. Diffuse bilateral patchy groundglass alveolar opacities favoring pneumonia. No consolidation/effusion. 2. Incidental cardiomegaly with mitral valve calcifications, chronic bony findings, hepatic cyst/hemangioma, duodenal lipoma, and old granulomatous disease.
[2020-04-22] MEDS ORDERED: ROCEPHIN 1 Gm-D5w 50 ml Bag** 1 G/50 ML IVPB IV ONE (15:17)
[2020-04-22] MEDS ORDERED: ROCEPHIN 1 Gm-D5w 50 ml Bag** 1 G/50 ML IVPB IV STA (15:18)
[2020-04-22] MEDS ORDERED: Zofran 4 MG/2 ML VIAL IV PRN (15:23)
[2020-04-22] MEDS ORDERED: Combivent Inhaler COMMON CANISTER IH SCH (15:30)
[2020-04-22] MEDS ORDERED: Spiriva 18 Mcg/Cap Inhaler IH ONE (17:32)
[2020-04-22] MEDS ORDERED: VENTOLIN COMMON CANISTER IH PRN (17:48)
[2020-04-22] MEDS ORDERED: Spiriva 18 Mcg/Cap Inhaler IH SCH (19:00)
[2020-04-22] MEDS: Zithromax 500 MG/ 250 ML NaCl Premix 500 MG/250 ML IVPB IV SCH (19:05)
[2020-04-22] MEDS ORDERED: NORCO 5/325 MG PO PRN (21:03)
[2020-04-22] MEDS ORDERED: Nitrostat 0.4 MG Tablet SL PRN (21:04)
[2020-04-22] MEDS: HUMALOG SQ PRN (21:59)
[2020-04-22] MEDS: BUSPAR 5 MG PO SCH (21:59)
[2020-04-22] MEDS: ELIQUIS 2.5 MG TABLET PO SCH (21:59)
[2020-04-22] MEDS ORDERED: Lantus Insulin SQ SCH (22:00)
[2020-04-22] MEDS ORDERED: ZOCOR 20MG PO SCH (22:00)
[2020-04-22] MEDS ORDERED: Lasix 40 MG/4 ML IV SCH (22:00)
[2020-04-23 05:22] LABS: Hematocrit 32.4 % (35-47); Hemoglobin 10.6 gm/dl (12.0-16.0); Mean Cell Volume 90.8 fl (78-100); Mean Corpuscular Hemoglobin 29.7 pg (26-32); Mean Corpuscular Hgb Concent. 32.7 g/dl (32-36); Mean Platelet Volume 9.8 fl (7.5-11.0); Platelet Count 226 K/mm3 (150-450); Red Blood Count 3.57 M/mm3 (4.1-5.4); Red Cell Distribution Width 14.1 % (11.5-14.0); White Blood Count 9.6 K/mm3 (4.0-10.5)
[2020-04-23 05:43] LABS: ALBUMIN 3.4 g/dL (3.5-5.0); ANION GAP 8.4 MEQ/L (5-15); BILIRUBIN,TOTAL 0.6 mg/dL (0.2-1.3); Calcium 8.7 mg/dL (8.4-10.2); Creatinine 1 1.18 mg/dL (0.52-1.04); EST GLOMERULAR FILTRATION RATE 46.8 ML/MIN; Potassium 4.6 mmol/L (3.5-5.1); Total Protein 5.6 g/dL (6.3-8.2)
[2020-04-23] MEDS ORDERED: Advair Hfa 230/21 Mcg COMMON CANISTER IH SCH (07:00)
[2020-04-23] MEDS ORDERED: Colace 100 MG PO PRN (07:14)
[2020-04-23 07:25] VITALS: BP 134/71; PULSE 80
[2020-04-23] MEDS ORDERED: MEDICATION INTERVENTION MC SCH (07:30)
[2020-04-23] MEDS ORDERED: Novolin N SQ SCH (08:00)
[2020-04-23] MEDS: Zithromax 500 MG/ 250 ML NaCl Premix 500 MG/250 ML IVPB IV SCH (08:50)
--- NOTE | 2020-04-23 08:56 | PCM.SSS ---
History of Present Illness - Chief Complaint Chief Complaint: CHF History of Present Illness: is a 79 year old female pt of mine from [facility] with PMHx afib (on Eliquis), CHF, DM, and COPD who was admitted through ER with CHF exacerbation and pneumonia. Was found to have ground glass opacities bilaterally on CT but since COVID rapid test was negative she was not admitted to the COVID unit. Pt was having SOB that worsened last night. Denies any mag chest pain. Her troponins have been neg x 5. EKG nonacute. Was started on IV rocephin and zithromax. She was diuresed and is feeling better. On her home O2. Would like to go home. Will be discharged on po augmentin. She will self-quarantine, along with her , for the next 10 days (and at least 24h after the most recent fever and if her sx are improving). Medications & Allergies Home Medications: Home Medication List Alendronate Sodium 70 mg [Fosamax 70 MG] 70 mg PO WEEKLY 10/01/18 [History Confirmed 04/22/20] Amlodipine Besylate 10 mg PO DAILY 10/01/18 [History Confirmed 04/22/20] Budesonide/Formoterol Fumarate [Symbicort 160-4.5 Mcg Inhaler] 2 puff IH BID [History Confirmed 04/22/20] Bumetanide 1 mg [Bumex 1 mg] 1 mg PO DAILY 10/01/18 [History Confirmed 04/22/20] Cholecalciferol (Vitamin D3) [Vitamin D] 400 unit PO LUNCH 10/01/18 [History Confirmed 04/22/20] Duloxetine HCl 30 mg [Cymbalta 30 MG Capsule] 30 mg PO DAILY 10/01/18 [His tory Confirmed 04/22/20] Isosorbide Mononitrate 30 mg [Imdur 30 MG] 30 mg PO DAILY 10/01/18 [History Confirmed 04/22/20] Magnesium 400 mg PO LUNCH 10/01/18 [History Confirmed 04/22/20] Metoprolol Tartrate 25 mg [Lopressor 25MG Tab] 25 mg PO DAILY 10/01/18 [History Confirmed 04/22/20] Potassium Chloride 10 Meq Tab* [Klor Con 10 MEQ] 20 meq PO DAILY 10/01/18 [History Confirmed 04/22/20] Simvastatin [Zocor] 40 mg PO HS 10/01/18 [History Confirmed 04/22/20] Tiotropium [place] [Spiriva] 1 puff IH DAILY 10/01/18 [History Confirmed 04/22/20] Cyanocobalamin 1000 Mcg/ml [Cyanocobalamin B-12 1000 MCG/ML] 1,000 mcg IJ UD 10/16/19 [History Confirmed 04/22/20] Linaclotide [Linzess] 145 mcg PO DAILY 10/16/19 [History Confirmed 04/22/20] PANTOPRAZOLE 40 mg Tablet [Protonix 40MG Tablet] 40 mg PO QAM 10/16/19 [History Confirmed 04/22/20] Apixaban [Eliquis] 5 mg PO BID #0 10/20/19 [Rx Confirmed 04/22/20] Buspirone HCl 5 mg PO BID 04/22/20 [History Confirmed 04/22/20] Docusate Sodium 100 mg [Colace 100 MG] 1 cap PO DAILY PRN 04/22/20 [History Confirmed 04/22/20] Hydrocodone/APAP 5-325 Tab^^^ [[place] 5-325 Tablet^^^] 1 tab PO Q6HPRN PRN MDD 6 04/22/20 [History Confirmed 04/22/20] Insulin Detemir [Levemir] 20 units SQ UD 04/22/20 [History Confirmed 04/22/20] Insulin NPH Human Recom [Novolin N] 15 unit SQ BID 04/22/20 [History Confirmed 04/22/20] Metformin HCl 500 mg PO DAILY 04/22/20 [History Confirmed 04/22/20] Nitroglycerin 0.4 mg SL UD 04/22/20 [History Confirmed 04/22/20] Ondansetron HCl [Zofran] 4 mg PO Q6HPRN PRN 04/22/20 [History Confirmed 04/22/20] Spironolactone 25 mg [Aldactone 25 MG] 25 mg PO DAILY 04/22/20 [History Confirmed 04/22/20] allopurinoL [Allopurinol] 100 mg PO DAILY 04/22/20 [History Confirmed 04/22/20] Amoxicillin/Potassium Clav [Augmentin 875-125 Tablet] 875 mg PO BID #16 tablet 04/23/20 [Rx] Lactobacillus Acidophilus [Acidophilus Lactobacilli] 1 each PO BID #16 capsule 04/23/20 [Rx] Allergies/Adverse Reactions: Allergies Allergy/AdvReac Type Severity Reaction Status Date / Time No Known Drug Allergies Allergy Verified 04/22/20 10:06 - Past Medical History Past Medical History: Yes Neurological History: Peripheral Neuropathy ENT History: Cataracts Cardiac History: Arrhythmia, Congestive Heart Failure, High Cholesterol, Hypertension Respiratory History: CHF, COPD Endocrine Medical History: Diabetes Type II Musculoskelatal History: Fractures, Osteoporosis GI Medical History: No Pertinent History, Hernia History: Other Pyscho-Social History: No Pertinent History Reproductive Disorders: No Pertinent History Comment: 2017 fell injured kidney, fx vertebrae repaired with kyphoplasty, lung infection - Female History Hx Last Menstrual Period: post menopausal Are you now?: No - Past Surgical History Past Surgical History: Yes Neuro Surgical History: No Pertinent History Cardiac History: No Pertinent History Respiratory Surgery: No Pertinent History GI Surgical History: Cholecystectomy, Hernia Repair Genitourinary Surgical Hx: Other Musculskeletal Surgical Hx: Orthopedic Surgery Female Surgical History: Section Other Surgical History: back surgery; broken ribs with cement; Left wrist surgery; bladder and rectal prolapse - Social History Smoking Status: Never smoker Exposure to second hand smoke: No Alcohol: None Drug Use: none Significant Family History: no pertinent family hx - Physical Exam Vital Signs: Vital Signs - 24 hr Temp Pulse Resp BP BP Pulse Ox 04/23/20 07:24 98.5 F 80 22 134/71 97 04/23/20 06:12 81 20 97 04/23/20 04:00 98.5 F 95 H 19 153/71 95 04/23/20 00:00 99.3 F 80 22 167/71 95 04/22/20 20:00 98.4 F 91 H 24 140/66 97 04/22/20 17:49 93 H 24 99 04/22/20 17:11 99.1 F 93 H 20 142/71 99 04/22/20 16:05 100 04/22/20 15:31 106 H 35 H 144/69 97 04/22/20 14:48 93 H 33 H 162/79 97 04/22/20 14:47 97 H 24 162/79 97 04/22/20 13:22 89 27 H 98 04/22/20 12:10 91 H 29 H 165/84 96 04/22/20 11:24 87 16 138/63 96 04/22/20 10:56 73 16 151/73 96 04/22/20 09:55 99.1 F 84 20 157/96 99 Oxygen-Last 24 hours Oxygen Flowrate (L/min)-RT 3 Results - Labs Lab/Micro Results: Lab Results-Last 24 Hours 04/22/20 04/22/20 04/22/20 Range/Units 10:15 10:15 10:15 WBC 13.5 H (4.0-10.5) K/mm3 RBC 3.85 L (4.1-5.4) M/mm3 Hgb 11.3 L (12.0-16.0) gm/dl Hct 35.2 (35-47) % MCV 91.4 (78-100) fl MCH 29.4 (26-32) pg MCHC 32.1 (32-36) g/dl RDW 14.2 H (11.5-14.0) % Plt Count 252 (150-450) K/mm3 MPV 9.6 (7.5-11.0) fl Segmented Neutrophils 85 H (36.0-66.0) % Band Neutrophils 1 (0.0-2.0) % Lymphocytes (Manual) 10 L (24-44) % Monocytes (Manual) 3 (0.0-12.0) % Eosinophils (Manual) 1 (0.00-3.0) % Platelet Estimate NORMAL (NORMAL) RBC Morphology NORMAL PT 16.3 H (9.95-12.35) SECONDS INR 1.44 (0.8-3.0) APTT 32.0 (25.3-37.0) SECONDS Sodium 137 (137-145) mmol/L Potassium 4.3 (3.5-5.1) mmol/L Chloride 106 (98-107) mmol/L Carbon Dioxide 28 (22-30) mmol/L Anion Gap 7.6 (5-15) MEQ/L BUN 20 H (7-17) mg/dL Creatinine 0.90 (0.52-1.04) mg/dL Estimated GFR > 60.0 ML/MIN Glucose 157 H (74-106) mg/dL POC Glucometer (74 to 106) mg/dL Hemoglobin A1c (4.5-6.0) % Lactic Acid (0.4-2.0) Calcium 9.0 (8.4-10.2) mg/dL Total Bilirubin 0.70 (0.2-1.3) mg/dL AST 15 (14-36) U/L ALT 13 (0-35) U/L Alkaline Phosphatase 72 (38-126) U/L Troponin I (0.000-0.034) ng/mL NT-Pro-B Natriuret Pep 2160 H (0-1800) pg/mL Serum Total Protein 5.9 L (6.3-8.2) g/dL Albumin 3.5 (3.5-5.0) g/dL SARS-CoV-2 (PCR) (NEGATIVE) 04/22/20 04/22/20 04/22/20 Range/Units 10:15 10:15 11:11 WBC (4.0-10.5) K/mm3 RBC (4.1-5.4) M/mm3 Hgb (12.0-16.0) gm/dl Hct (35-47) % MCV (78-100) fl MCH (26-32) pg MCHC (32-36) g/dl RDW (11.5-14.0) % Plt Count (150-450) K/mm3 MPV (7.5-11.0) fl Segmented Neutrophils (36.0-66.0) % Band Neutrophils (0.0-2.0) % Lymphocytes (Manual) (24-44) % Monocytes (Manual) (0.0-12.0) % Eosinophils (Manual) (0.00-3.0) % Platelet Estimate (NORMAL) RBC Morphology PT (9.95-12.35) SECONDS INR (0.8-3.0) APTT (25.3-37.0) SECONDS Sodium (137-145) mmol/L Potassium (3.5-5.1) mmol/L Chloride (98-107) mmol/L Carbon Dioxide (22-30) mmol/L Anion Gap (5-15) MEQ/L BUN (7-17) mg/dL Creatinine (0.52-1.04) mg/dL Estimated GFR ML/MIN Glucose (74-106) mg/dL POC Glucometer (74 to 106) mg/dL Hemoglobin A1c 7.34 H (4.5-6.0) % Lactic Acid 1.1 (0.4-2.0) Calcium (8.4-10.2) mg/dL Total Bilirubin (0.2-1.3) mg/dL AST (14-36) U/L ALT (0-35) U/L Alkaline Phosphatase (38-126) U/L Troponin I < 0.012 (0.000-0.034) ng/mL NT-Pro-B Natriuret Pep (0-1800) pg/mL Serum Total Protein (6.3-8.2) g/dL Albumin (3.5-5.0) g/dL SARS-CoV-2 (PCR) (NEGATIVE) 04/22/20 04/22/20 04/22/20 Range/Units 12:48 14:00 16:30 WBC (4.0-10.5) K/mm3 RBC (4.1-5.4) M/mm3 Hgb (12.0-16.0) gm/dl Hct (35-47) % MCV (78-100) fl MCH (26-32) pg MCHC (32-36) g/dl RDW (11.5-14.0) % Plt Count (150-450) K/mm3 MPV (7.5-11.0) fl Segmented Neutrophils (36.0-66.0) % Band Neutrophils (0.0-2.0) % Lymphocytes (Manual) (24-44) % Monocytes (Manual) (0.0-12.0) % Eosinophils (Manual) (0.00-3.0) % Platelet Estimate (NORMAL) RBC Morphology PT (9.95-12.35) SECONDS INR (0.8-3.0) APTT (25.3-37.0) SECONDS Sodium (137-145) mmol/L Potassium (3.5-5.1) mmol/L Chloride (98-107) mmol/L Carbon Dioxide (22-30) mmol/L Anion Gap (5-15) MEQ/L BUN (7-17) mg/dL Creatinine (0.52-1.04) mg/dL Estimated GFR ML/MIN Glucose (74-106) mg/dL POC Glucometer (74 to 106) mg/dL Hemoglobin A1c (4.5-6.0) % Lactic Acid (0.4-2.0) Calcium (8.4-10.2) mg/dL Total Bilirubin (0.2-1.3) mg/dL AST (14-36) U/L ALT (0-35) U/L Alkaline Phosphatase (38-126) U/L Troponin I < 0.012 < 0.012 (0.000-0.034) ng/mL NT-Pro-B Natriuret Pep (0-1800) pg/mL Serum Total Protein (6.3-8.2) g/dL Albumin (3.5-5.0) g/dL SARS-CoV-2 (PCR) NEGATIVE (NEGATIVE) 04/22/20 04/22/20 04/22/20 Range/Units 19:20 20:35 23:00 WBC (4.0-10.5) K/mm3 RBC (4.1-5.4) M/mm3 Hgb (12.0-16.0) gm/dl Hct (35-47) % MCV (78-100) fl MCH (26-32) pg MCHC (32-36) g/dl RDW (11.5-14.0) % Plt Count (150-450) K/mm3 MPV (7.5-11.0) fl Segmented Neutrophils (36.0-66.0) % Band Neutrophils (0.0-2.0) % Lymphocytes (Manual) (24-44) % Monocytes (Manual) (0.0-12.0) % Eosinophils (Manual) (0.00-3.0) % Platelet Estimate (NORMAL) RBC Morphology PT (9.95-12.35) SECONDS INR (0.8-3.0) APTT (25.3-37.0) SECONDS Sodium (137-145) mmol/L Potassium (3.5-5.1) mmol/L Chloride (98-107) mmol/L Carbon Dioxide (22-30) mmol/L Anion Gap (5-15) MEQ/L BUN (7-17) mg/dL Creatinine (0.52-1.04) mg/dL Estimated GFR ML/MIN Glucose (74-106) mg/dL POC Glucometer 379 H (74 to 106) mg/dL Hemoglobin A1c (4.5-6.0) % Lactic Acid (0.4-2.0) Calcium (8.4-10.2) mg/dL Total Bilirubin (0.2-1.3) mg/dL AST (14-36) U/L ALT (0-35) U/L Alkaline Phosphatase (38-126) U/L Troponin I < 0.012 < 0.012 (0.000-0.034) ng/mL NT-Pro-B Natriuret Pep (0-1800) pg/mL Serum Total Protein (6.3-8.2) g/dL Albumin (3.5-5.0) g/dL SARS-CoV-2 (PCR) (NEGATIVE) 04/23/20 04/23/20 04/23/20 Range/Units 04:35 04:35 07:08 WBC 9.6 (4.0-10.5) K/mm3 RBC 3.57 L (4.1-5.4) M/mm3 Hgb 10.6 L (12.0-16.0) gm/dl Hct 32.4 L (35-47) % MCV 90.8 (78-100) fl MCH 29.7 (26-32) pg MCHC 32.7 (32-36) g/dl RDW 14.1 H (11.5-14.0) % Plt Count 226 (150-450) K/mm3 MPV 9.8 (7.5-11.0) fl Segmented Neutrophils (36.0-66.0) % Band Neutrophils (0.0-2.0) % Lymphocytes (Manual) (24-44) % Monocytes (Manual) (0.0-12.0) % Eosinophils (Manual) (0.00-3.0) % Platelet Estimate (NORMAL) RBC Morphology PT (9.95-12.35) SECONDS INR (0.8-3.0) APTT (25.3-37.0) SECONDS Sodium 137 (137-145) mmol/L Potassium 4.6 (3.5-5.1) mmol/L Chloride 103 (98-107) mmol/L Carbon Dioxide 30 (22-30) mmol/L Anion Gap 8.4 (5-15) MEQ/L BUN 28 H (7-17) mg/dL Creatinine 1.18 H (0.52-1.04) mg/dL Estimated GFR 46.8 ML/MIN Glucose 212 H (74-106) mg/dL POC Glucometer 195 H (74 to 106) mg/dL Hemoglobin A1c (4.5-6.0) % Lactic Acid (0.4-2.0) Calcium 8.7 (8.4-10.2) mg/dL Total Bilirubin 0.60 (0.2-1.3) mg/dL AST 13 L (14-36) U/L ALT 11 (0-35) U/L Alkaline Phosphatase 64 (38-126) U/L Troponin I (0.000-0.034) ng/mL NT-Pro-B Natriuret Pep (0-1800) pg/mL Serum Total Protein 5.6 L (6.3-8.2) g/dL Albumin 3.4 L (3.5-5.0) g/dL SARS-CoV-2 (PCR) (NEGATIVE) Accuchecks Date 04/22/20 Time 20:35 - Radiology Impressions Radiology Exams & Impressions: Radiology Procedures Category Date Time Status CHEST 1 VIEW (PORTABLE) Stat Exams 04/22/20 10:08 Completed CHEST WITHOUT CONTRAST [CT] Stat Exams 04/22/20 11:41 Completed - Other Procedures and Tests Respiratory Therapy 04/22/20 15:23 EKG REPEAT IN AM 04/22/20 17:48 Oxygen NASAL CANNULA 3 lpm 04/22/20 17:49 Respiratory Therapy Assessment DAILY Assessment/Plan (1) Pneumonia Current Visit: Yes Status: Acute Qualifiers: Pneumonia type: due to unspecified organism Laterality: bilateral Lung location: unspecified part of lung Qualified Code(s): J18.9 - Pneumonia, unspecified organism Assessment & Plan: Will treat as for bacterial pneumonia, but clinically I suspect COVID-19. She is to quarantine at home. Return to hospital for increasing shortness of breath. Finish antibiotics. Code(s): J18.9 - PNEUMONIA, UNSPECIFIED ORGANISM (2) CHF exacerbation Current Visit: No Status: Acute Qualifiers: Heart failure type: diastolic Qualified Code(s): I50.33 - Acute on chronic diastolic (congestive) heart failure Code(s): I50.9 - HEART FAILURE, UNSPECIFIED (3) Atrial fibrillation Current Visit: No Status: Chronic Qualifiers: Atrial fibrillation type: paroxysmal Qualified Code(s): I48.0 - Paroxysmal atrial fibrillation Code(s): I48.91 - UNSPECIFIED ATRIAL FIBRILLATION (4) Chronic hypoxemic respiratory failure Current Visit: No Status: Chronic (5) Diabetes mellitus Current Visit: No Status: Chronic Qualifiers: Diabetes mellitus type: type 2 Diabetes mellitus alf insulin use: without alf use Diabetes mellitus complication status: without complication Qualified Code(s): E11.9 - Type 2 diabetes mellitus without complications Code(s): E11.9 - TYPE 2 DIABETES MELLITUS WITHOUT COMPLICATIONS Hospital Summary - Hospital Course Hospital Course: is a 79 year old female pt of mine from [facility] with PMHx afib (on Eliquis), CHF, DM, and COPD who was admitted through ER with CHF exacerbation and pneumonia. Was found to have ground glass opacities bilaterally on CT but since COVID rapid test was negative she was not admitted to the COVID unit. Pt was having SOB that worsened last night. Denies any mag chest pain. Her troponins have been neg x 5. EKG nonacute. Was started on IV rocephin and zithromax. She was diuresed and is feeling better. On her home O2. Would like to go home. Will be discharged on po augmentin. She will self-quarantine, along with her , for the next 10 days (and at least 24h after the most recent fever and if her sx are improving). - Vitals & Intake/Output Vital Signs: Vital Signs Temperature 98.5 F 04/23/20 07:24 Pulse Rate 80 04/23/20 07:24 Respiratory Rate 22 04/23/20 07:24 Blood Pressure 134/71 04/23/20 07:24 O2 Sat by Pulse Oximetry 97 04/23/20 07:24 Intake & Output: Intake & Output 04/20/20 04/21/20 04/22/20 04/23/20 11:59 11:59 11:59 11:59 Intake Total 960 Output Total 900 Balance 60 Weight 73.936 kg 77 kg - Lab Result Diagrams: 04/23/20 04:35 04/23/20 04:35 Lab Results-Last 24 Hrs: Lab Results-Last 24 Hours 1104/22/20 04/22/20 Range/Units 10:15 10:15 10:15 WBC 13.5 H (4.0-10.5) K/mm3 RBC 3.85 L (4.1-5.4) M/mm3 Hgb 11.3 L (12.0-16.0) gm/dl Hct 35.2 (35-47) % MCV 91.4 (78-100) fl MCH 29.4 (26-32) pg MCHC 32.1 (32-36) g/dl RDW 14.2 H (11.5-14.0) % Plt Count 252 (150-450) K/mm3 MPV 9.6 (7.5-11.0) fl Segmented Neutrophils 85 H (36.0-66.0) % Band Neutrophils 1 (0.0-2.0) % Lymphocytes (Manual) 10 L (24-44) % Monocytes (Manual) 3 (0.0-12.0) % Eosinophils (Manual) 1 (0.00-3.0) % Platelet Estimate NORMAL (NORMAL) RBC Morphology NORMAL PT 16.3 H (9.95-12.35) SECONDS INR 1.44 (0.8-3.0) APTT 32.0 (25.3-37.0) SECONDS Sodium 137 (137-145) mmol/L Potassium 4.3 (3.5-5.1) mmol/L Chloride 106 (98-107) mmol/L Carbon Dioxide 28 (22-30) mmol/L Anion Gap 7.6 (5-15) MEQ/L BUN 20 H (7-17) mg/dL Creatinine 0.90 (0.52-1.04) mg/dL Estimated GFR > 60.0 ML/MIN Glucose 157 H (74-106) mg/dL POC Glucometer (74 to 106) mg/dL Hemoglobin A1c (4.5-6.0) % Lactic Acid (0.4-2.0) Calcium 9.0 (8.4-10.2) mg/dL Total Bilirubin 0.70 (0.2-1.3) mg/dL AST 15 (14-36) U/L ALT 13 (0-35) U/L Alkaline Phosphatase 72 (38-126) U/L Troponin I (0.000-0.034) ng/mL NT-Pro-B Natriuret Pep 2160 H (0-1800) pg/mL Serum Total Protein 5.9 L (6.3-8.2) g/dL Albumin 3.5 (3.5-5.0) g/dL SARS-CoV-2 (PCR) (NEGATIVE) 04/22/20 04/22/20 04/22/20 Range/Units 10:15 10:15 11:11 WBC (4.0-10.5) K/mm3 RBC (4.1-5.4) M/mm3 Hgb (12.0-16.0) gm/dl Hct (35-47) % MCV (78-100) fl MCH (26-32) pg MCHC (32-36) g/dl RDW (11.5-14.0) % Plt Count (150-450) K/mm3 MPV (7.5-11.0) fl Segmented Neutrophils (36.0-66.0) % Band Neutrophils (0.0-2.0) % Lymphocytes (Manual) (24-44) % Monocytes (Manual) (0.0-12.0) % Eosinophils (Manual) (0.00-3.0) % Platelet Estimate (NORMAL) RBC Morphology PT (9.95-12.35) SECONDS INR (0.8-3.0) APTT (25.3-37.0) SECONDS Sodium (137-145) mmol/L Potassium (3.5-5.1) mmol/L Chloride (98-107) mmol/L Carbon Dioxide (22-30) mmol/L Anion Gap (5-15) MEQ/L BUN (7-17) mg/dL Creatinine (0.52-1.04) mg/dL Estimated GFR ML/MIN Glucose (74-106) mg/dL POC Glucometer (74 to 106) mg/dL Hemoglobin A1c 7.34 H (4.5-6.0) % Lactic Acid 1.1 (0.4-2.0) Calcium (8.4-10.2) mg/dL Total Bilirubin (0.2-1.3) mg/dL AST (14-36) U/L ALT (0-35) U/L Alkaline Phosphatase (38-126) U/L Troponin I < 0.012 (0.000-0.034) ng/mL NT-Pro-B Natriuret Pep (0-1800) pg/mL Serum Total Protein (6.3-8.2) g/dL Albumin (3.5-5.0) g/dL SARS-CoV-2 (PCR) (NEGATIVE) 04/22/20 04/22/20 04/22/20 Range/Units 12:48 14:00 16:30 WBC (4.0-10.5) K/mm3 RBC (4.1-5.4) M/mm3 Hgb (12.0-16.0) gm/dl Hct (35-47) % MCV (78-100) fl MCH (26-32) pg MCHC (32-36) g/dl RDW (11.5-14.0) % Plt Count (150-450) K/mm3 MPV (7.5-11.0) fl Segmented Neutrophils (36.0-66.0) % Band Neutrophils (0.0-2.0) % Lymphocytes (Manual) (24-44) % Monocytes (Manual) (0.0-12.0) % Eosinophils (Manual) (0.00-3.0) % Platelet Estimate (NORMAL) RBC Morphology PT (9.95-12.35) SECONDS INR (0.8-3.0) APTT (25.3-37.0) SECONDS Sodium (137-145) mmol/L Potassium (3.5-5.1) mmol/L Chloride (98-107) mmol/L Carbon Dioxide (22-30) mmol/L Anion Gap (5-15) MEQ/L BUN (7-17) mg/dL Creatinine (0.52-1.04) mg/dL Estimated GFR ML/MIN Glucose (74-106) mg/dL POC Glucometer (74 to 106) mg/dL Hemoglobin A1c (4.5-6.0) % Lactic Acid (0.4-2.0) Calcium (8.4-10.2) mg/dL Total Bilirubin (0.2-1.3) mg/dL AST (14-36) U/L ALT (0-35) U/L Alkaline Phosphatase (38-126) U/L Troponin I < 0.012 < 0.012 (0.000-0.034) ng/mL NT-Pro-B Natriuret Pep (0-1800) pg/mL Serum Total Protein (6.3-8.2) g/dL Albumin (3.5-5.0) g/dL SARS-CoV-2 (PCR) NEGATIVE (NEGATIVE) 04/22/20 04/22/20 04/22/20 Range/Units 19:20 20:35 23:00 WBC (4.0-10.5) K/mm3 RBC (4.1-5.4) M/mm3 Hgb (12.0-16.0) gm/dl Hct (35-47) % MCV (78-100) fl MCH (26-32) pg MCHC (32-36) g/dl RDW (11.5-14.0) % Plt Count (150-450) K/mm3 MPV (7.5-11.0) fl Segmented Neutrophils (36.0-66.0) % Band Neutrophils (0.0-2.0) % Lymphocytes (Manual) (24-44) % Monocytes (Manual) (0.0-12.0) % Eosinophils (Manual) (0.00-3.0) % Platelet Estimate (NORMAL) RBC Morphology PT (9.95-12.35) SECONDS INR (0.8-3.0) APTT (25.3-37.0) SECONDS Sodium (137-145) mmol/L Potassium (3.5-5.1) mmol/L Chloride (98-107) mmol/L Carbon Dioxide (22-30) mmol/L Anion Gap (5-15) MEQ/L BUN (7-17) mg/dL Creatinine (0.52-1.04) mg/dL Estimated GFR ML/MIN Glucose (74-106) mg/dL POC Glucometer 379 H (74 to 106) mg/dL Hemoglobin A1c (4.5-6.0) % Lactic Acid (0.4-2.0) Calcium (8.4-10.2) mg/dL Total Bilirubin (0.2-1.3) mg/dL AST (14-36) U/L ALT (0-35) U/L Alkaline Phosphatase (38-126) U/L Troponin I < 0.012 < 0.012 (0.000-0.034) ng/mL NT-Pro-B Natriuret Pep (0-1800) pg/mL Serum Total Protein (6.3-8.2) g/dL Albumin (3.5-5.0) g/dL SARS-CoV-2 (PCR) (NEGATIVE) 04/23/20 04/23/20 04/23/20 Range/Units 04:35 04:35 07:08 WBC 9.6 (4.0-10.5) K/mm3 RBC 3.57 L (4.1-5.4) M/mm3 Hgb 10.6 L (12.0-16.0) gm/dl Hct 32.4 L (35-47) % MCV 90.8 (78-100) fl MCH 29.7 (26-32) pg MCHC 32.7 (32-36) g/dl RDW 14.1 H (11.5-14.0) % Plt Count 226 (150-450) K/mm3 MPV 9.8 (7.5-11.0) fl Segmented Neutrophils (36.0-66.0) % Band Neutrophils (0.0-2.0) % Lymphocytes (Manual) (24-44) % Monocytes (Manual) (0.0-12.0) % Eosinophils (Manual) (0.00-3.0) % Platelet Estimate (NORMAL) RBC Morphology PT (9.95-12.35) SECONDS INR (0.8-3.0) APTT (25.3-37.0) SECONDS Sodium 137 (137-145) mmol/L Potassium 4.6 (3.5-5.1) mmol/L Chloride 103 (98-107) mmol/L Carbon Dioxide 30 (22-30) mmol/L Anion Gap 8.4 (5-15) MEQ/L BUN 28 H (7-17) mg/dL Creatinine 1.18 H (0.52-1.04) mg/dL Estimated GFR 46.8 ML/MIN Glucose 212 H (74-106) mg/dL POC Glucometer 195 H (74 to 106) mg/dL Hemoglobin A1c (4.5-6.0) % Lactic Acid (0.4-2.0) Calcium 8.7 (8.4-10.2) mg/dL Total Bilirubin 0.60 (0.2-1.3) mg/dL AST 13 L (14-36) U/L ALT 11 (0-35) U/L Alkaline Phosphatase 64 (38-126) U/L Troponin I (0.000-0.034) ng/mL NT-Pro-B Natriuret Pep (0-1800) pg/mL Serum Total Protein 5.6 L (6.3-8.2) g/dL Albumin 3.4 L (3.5-5.0) g/dL SARS-CoV-2 (PCR) (NEGATIVE) Micro Results-Entire Visit: Accuchecks Date 04/22/20 Time 20:35 - Radiology Exams Ordered Rad Exams-Entire Visit: Radiology Procedures Category Date Time Status CHEST 1 VIEW (PORTABLE) Stat Exams 04/22/20 10:08 Completed CHEST WITHOUT CONTRAST [CT] Stat Exams 04/22/20 11:41 Completed - Procedures and Test Procedures and Tests throughout Hospitalization: Therapy Orders & Screens 04/22/20 15:23 EKG REPEAT IN AM Comment: 04/22/20 15:28 Respiratory Therapy Consult ROUTINE Comment: Reason For Exam: 04/22/20 17:44 RT Screen per Nursing Assess ONCE Comment: Protocol Order Physician Instructions: Greater than 3 points order RT Admission Screen Reason For Exam: Triggered on Admission Diagnosis: CHF Diagnosis: CHF Pneumonia: Yes Home O2: Yes Asthma: No CHF: Yes Home CPAP/BIPAP: Yes Home Nebs/MDI: No Total Points: 16 04/22/20 17:48 Oxygen NASAL CANNULA 3 lpm Comment: Diagnosis: CHF 04/22/20 17:49 Respiratory Therapy Assessment DAILY Comment: Diagnosis: CHF - Discharge Disposition: Home, Self-Care Condition: Stable Prescriptions: New Lactobacillus Acidophilus [Acidophilus Lactobacilli] 1 each PO BID #16 capsule Amoxicillin/Potassium Clav [Augmentin 875-125 Tablet] 875 mg PO BID #16 tablet Continue Simvastatin [Zocor] 40 mg PO HS Duloxetine HCl 30 mg [Cymbalta 30 MG Capsule] 30 mg PO DAILY Isosorbide Mononitrate 30 mg [Imdur 30 MG] 30 mg PO DAILY Bumetanide 1 mg [Bumex 1 mg] 1 mg PO DAILY Metoprolol Tartrate 25 mg [Lopressor 25MG Tab] 25 mg PO DAILY Alendronate Sodium 70 mg [Fosamax 70 MG] 70 mg PO WEEKLY Tiotropium [place] [Spiriva] 1 puff IH DAILY Potassium Chloride 10 Meq Tab* [Klor Con 10 MEQ] 20 meq PO DAILY Magnesium 400 mg PO LUNCH Cholecalciferol (Vitamin D3) [Vitamin D] 400 unit PO LUNCH Budesonide/Formoterol Fumarate [Symbicort 160-4.5 Mcg Inhaler] 2 puff IH BID Amlodipine Besylate 10 mg PO DAILY Cyanocobalamin 1000 Mcg/ml [Cyanocobalamin B-12 1000 MCG/ML] 1,000 mcg IJ UD Linaclotide [Linzess] 145 mcg PO DAILY PANTOPRAZOLE 40 mg Tablet [Protonix 40MG Tablet] 40 mg PO QAM Apixaban [Eliquis] 5 mg PO BID #0 allopurinoL [Allopurinol] 100 mg PO DAILY Buspirone HCl 5 mg PO BID Insulin Detemir [Levemir] 20 units SQ UD Insulin NPH Human Recom [Novolin N] 15 unit SQ BID Metformin HCl 500 mg PO DAILY Spironolactone 25 mg [Aldactone 25 MG] 25 mg PO DAILY Hydrocodone/APAP 5-325 Tab^^^ [[place] 5-325 Tablet^^^] 1 tab PO Q6HPRN PRN MDD 6 PRN Reason: Pain Ondansetron HCl [Zofran] 4 mg PO Q6HPRN PRN PRN Reason: Nausea Nitroglycerin 0.4 mg SL UD Docusate Sodium 100 mg [Colace 100 MG] 1 cap PO DAILY PRN PRN Reason: Constipation Additional Instructions: If any increasing shortness of breath or other worrisome symptoms, please go to ER [facility]. Take the lactobacillus as prescribed, along with the antibiotic, as a way of preventing a severe diarrhea that can be a side effect of antibiotics. Follow up with DR. Marcos in the office after your quarantine period is over. It is possible you may have COVID even though your test was negative. You and your immediate family/close contacts should self-quarantine for at least 10 days; to leave quarantine, you must not have fever and you must be feeling better. Follow up with: ADA MARCOS [Primary Care Provider] -
[2020-04-23] MEDS: BUSPAR 5 MG PO SCH (09:39)
[2020-04-23] MEDS: HUMALOG SQ PRN (09:40)
[2020-04-23] MEDS: ELIQUIS 2.5 MG TABLET PO SCH (09:40)
[2020-04-23] MEDS ORDERED: NON-FORMULARY ITEM (Budesonide/Formoterol Fumarate [Symbicort 160-4.5 Mcg Inhaler] 2 PUFF) IH SCH (10:00)
[2020-04-23] MEDS ORDERED: BUMEX 1 MG PO SCH (10:00)
[2020-04-23] MEDS ORDERED: Imdur 30 MG PO SCH (10:00)
[2020-04-23] MEDS ORDERED: Aldactone 25 MG PO SCH (10:00)
[2020-04-23] MEDS ORDERED: Lopressor 25MG Tab PO SCH (10:00)
[2020-04-23] MEDS ORDERED: Protonix 40MG Tablet PO SCH (10:00)
[2020-04-23] MEDS ORDERED: Cymbalta 30 MG Capsule PO SCH (10:00)
[2020-04-23] MEDS ORDERED: Klor Con 10 MEQ PO SCH (10:00)
[2020-04-23] MEDS ORDERED: ROCEPHIN 1 Gm-D5w 50 ml Bag** 1 G/50 ML IVPB IV SCH (10:00)
[2020-04-23] MEDS ORDERED: NORVASC 5 MG PO SCH (10:00)
[2020-04-23] MEDS ORDERED: Lasix 40 MG/4 ML IV SCH (10:00)
[2020-04-23] MEDS ORDERED: ZYLOPRIM 100 MG PO SCH (10:00)
[2020-04-23] MEDS ORDERED: MAG-OX 400 PO SCH (12:00)
[2020-04-23 14:05] VITALS: O2SAT 99
== END 2020-04-23 12:10 | disposition home or self-care (01) ==
LOC: ED 09:54 → MED SURG 16:47
PROVIDERS: ADMIT Family Medicine; ATTEND Family Medicine
DX: J18.9 Pneumonia, unspecified organism (principal); I50.9 Heart failure, unspecified; I48.91 Unspecified atrial fibrillation; J96.11 Chronic respiratory failure with hypoxia; E11.9 Type 2 diabetes mellitus without complications; Z79.01 Long term (current) use of anticoagulants; Z79.899 Other long term (current) drug therapy; Z11.59 Encounter for screening for other viral diseases; J44.9 Chronic obstructive pulmonary disease, unspecified
CPT/HCPCS: 36000; 36415; 51702; 71045; 71250; 80053; 82947; 83036; 83605; 83880; 84484; 85025; 85027; 85610; 85730; 87040; 93005; 94640; 94760; 96365; 96374; 96375; 99285; G0378; U0003; J0456; J0696; J1817; J1940; J2060; A9270-GY

== ENCOUNTER 2020-08-13 12:03 | Inpatient (IN) | payer MEDICARE, BC ==
[2020-08-13 17:18] LABS: INFLUENZA A NEGATIVE (NEGATIVE); INFLUENZA B NEGATIVE (NEGATIVE); RESPIRATORY SYNCTIAL VIRUS NEGATIVE (Negative)
[2020-08-13 17:22] LABS: Absolute Neutrophil Ct (ANC) 10.23 (1.4-6.9); BASOPHIL % 0.2 % (0.0-0.4); Basophil (Absolute #) 0.03 (0-0.4); Eosinophil (Absolute #) 0.24 (0-0.5); Hematocrit 35.9 % (35-47); Hemoglobin 10.9 gm/dl (12.0-16.0); Lymphocyte (Absolute #) 0.89 (1.0-4.6); Lymphocytes % 7.3 % (24.0-44.0); Mean Cell Volume 89.5 fl (78-100); Mean Corpuscular Hemoglobin 27.2 pg (26-32); Mean Corpuscular Hgb Concent. 30.4 g/dl (32-36); Mean Platelet Volume 9.5 fl (7.5-11.0); Monocyte (Absolute #) 0.78 (0.0-1.3); Monocytes % 6.4 % (0.0-12.0); Neutrophil % 84.1 % (36.0-66.0); Platelet Count 287 K/mm3 (150-450); Red Blood Count 4.01 M/mm3 (4.1-5.4); Red Cell Distribution Width 14.4 % (11.5-14.0); White Blood Count 12.2 K/mm3 (4.0-10.5)
[2020-08-13 17:41] LABS: ALBUMIN 4.1 g/dL (3.5-5.0); ALKALINE PHOSPHATASE 81 U/L (38-126); ANION GAP 9.3 MEQ/L (5-15); BLOOD UREA NITROGEN 28 mg/dL (7-17); CHLORIDE 93 mmol/L (98-107); Calcium 9.7 mg/dL (8.4-10.2); Carbon Dioxide 39 mmol/L (22-30); Creatinine 1 1.51 mg/dL (0.52-1.04); EST GLOMERULAR FILTRATION RATE 35.2 ML/MIN; Glucose 180 mg/dL (74-106); NT PRO BNP 3360 pg/mL (0-1800); Potassium 4.5 mmol/L (3.5-5.1); SGOT/AST 16 U/L (14-36); SGPT/ALT 13 U/L (0-35); SODIUM 137 mmol/L (137-145); TROPONIN < 0.012 ng/mL (0.000-0.034); Total Protein 6.9 g/dL (6.3-8.2)
[2020-08-13 17:54] LABS: Appearance CLEAR (CLEAR); Bilirubin NEGATIVE (NEGATIVE); Blood NEGATIVE Ery/ul (0-5); Epithelial Cells RARE /HPF (FEW); Glucose NEGATIVE (NEGATIVE); Ketones NEGATIVE (NEGATIVE); Leukocyte Esterase NEGATIVE (NEGATIVE); Mucus SLIGHT /HPF (NEGATIVE); Nitrite NEGATIVE (NEGATIVE); Protein,Urine Dip NEGATIVE (Negative); RBC 0-2 /HPF (0-2); Urobilinogen NEGATIVE mg/dL (0-1); WBC 0-2 /HPF (0-5)
[2020-08-13] MEDS ORDERED: ZOCOR 20MG PO SCH (18:00)
[2020-08-13] MEDS ORDERED: Spiriva 18 Mcg/Cap Inhaler IH SCH (18:00)
[2020-08-13] MEDS ORDERED: MAG-OX 400 PO SCH (18:00)
[2020-08-13] MEDS ORDERED: ZYLOPRIM 100 MG PO SCH (18:00)
[2020-08-13] MEDS ORDERED: NORCO 7.5/325 MG TAB PO PRN (18:08)
--- NOTE | 2020-08-13 18:18 | XRAY ---
Indication: Short of breath 3 days. Comparison: April 22, 2020. PA/lateral chest again demonstrates hazy right lower lobe and lingula infiltrate/atelectasis. Remaining heart and upper lungs unremarkable. Stable osteopenia, bony degenerative changes, and thoracolumbar kyphoplasty.
[2020-08-13] MEDS ORDERED: Zithromax 500 MG/ 250 ML NaCl Premix 500 MG/250 ML IVPB IV ONE (18:30)
[2020-08-13] MEDS ORDERED: Lasix 40 MG/4 ML ONE (18:30)
[2020-08-13] MEDS ORDERED: ROCEPHIN 1 Gm-D5w 50 ml Bag** 1 G/50 ML IVPB IV ONE (18:30)
[2020-08-13] MEDS ORDERED: Furosemide 100mg/10 ml Vial IV ONE (18:33)
[2020-08-13] MEDS ORDERED: ROCEPHIN 1 Gm-D5w 50 ml Bag** 1 G/50 ML IVPB IV SCH (19:00)
[2020-08-13] MEDS ORDERED: Zithromax 500 MG/ 250 ML NaCl Premix 500 MG/250 ML IVPB IV SCH (19:00)
[2020-08-13] MEDS: NORVASC 5 MG PO SCH ×2 (19:58→21:41)
[2020-08-13] MEDS: Cymbalta 30 MG Capsule PO SCH ×2 (19:58→21:40)
[2020-08-13] MEDS: ZOFRAN ODT 4 MG PO PRN (20:31)
[2020-08-13] MEDS: PULMICORT 0.5 MG/2 ML RESPULES IH SCH (20:35)
[2020-08-13] MEDS: Advair Hfa 230/21 Mcg COMMON CANISTER IH SCH (20:48)
[2020-08-13] MEDS: ELIQUIS 2.5 MG TABLET PO SCH (21:40)
[2020-08-13] MEDS: Colace 100 MG PO SCH (21:40)
[2020-08-13] MEDS: BUSPAR 5 MG PO SCH (21:40)
[2020-08-13] MEDS: Novolin N SQ SCH (21:41)
[2020-08-13] MEDS: Lopressor 25MG Tab PO SCH (21:41)
[2020-08-14 05:09] LABS: Absolute Neutrophil Ct (ANC) 9.85 (1.4-6.9); BASOPHIL % 0.3 % (0.0-0.4); Basophil (Absolute #) 0.04 (0-0.4); Eosinophil % 2.3 % (0.00-5.0); Eosinophil (Absolute #) 0.27 (0-0.5); Hemoglobin 9.9 gm/dl (12.0-16.0); Lymphocyte (Absolute #) 0.98 (1.0-4.6); Lymphocytes % 8.2 % (24.0-44.0); Mean Cell Volume 90.2 fl (78-100); Mean Platelet Volume 9.3 fl (7.5-11.0); Monocytes % 6.7 % (0.0-12.0); Neutrophil % 82.5 % (36.0-66.0); Platelet Count 266 K/mm3 (150-450); Red Blood Count 3.66 M/mm3 (4.1-5.4); Red Cell Distribution Width 14.4 % (11.5-14.0); White Blood Count 11.9 K/mm3 (4.0-10.5)
[2020-08-14 05:40] LABS: ANION GAP 10.9 MEQ/L (5-15); Creatinine 1 1.53 mg/dL (0.52-1.04); EST GLOMERULAR FILTRATION RATE 34.7 ML/MIN; Potassium 4.1 mmol/L (3.5-5.1)
[2020-08-14] MEDS: Advair Hfa 230/21 Mcg COMMON CANISTER IH SCH ×2 (06:43→19:51)
[2020-08-14] MEDS: PULMICORT 0.5 MG/2 ML RESPULES IH SCH (06:43)
[2020-08-14] MEDS ORDERED: NON-FORMULARY ITEM (Hydrocodone/Apap 5-325 Tab^^^ 1 TAB) PO PRN (07:45)
[2020-08-14] MEDS ORDERED: MEDICATION INTERVENTION PO SCH (08:00)
[2020-08-14] MEDS: Novolin N SQ SCH ×2 (08:20→21:19)
[2020-08-14] MEDS: Colace 100 MG PO SCH ×3 (09:22→21:18)
[2020-08-14] MEDS: Imdur 30 MG PO SCH (09:22)
[2020-08-14] MEDS: BUSPAR 5 MG PO SCH ×2 (09:22→21:19)
[2020-08-14] MEDS: ELIQUIS 2.5 MG TABLET PO SCH ×2 (09:22→21:19)
[2020-08-14] MEDS: Lopressor 25MG Tab PO SCH ×2 (09:22→21:19)
[2020-08-14] MEDS: xanAX 0.25 MG PO PRN (09:23)
[2020-08-14] MEDS: ZOFRAN ODT 4 MG PO PRN ×2 (09:32→17:15)
[2020-08-14] MEDS: PATIENT OWN MEDICATION PO SCH (09:54)
[2020-08-14] MEDS ORDERED: Furosemide 100mg/10 ml Vial IV SCH (10:00)
[2020-08-14] MEDS: ZYLOPRIM 100 MG PO SCH (11:59)
[2020-08-14] MEDS: Cymbalta 30 MG Capsule PO SCH (11:59)
[2020-08-14] MEDS: Protonix 40MG Tablet PO SCH (11:59)
[2020-08-14] MEDS: Aldactone 25 MG PO SCH (11:59)
[2020-08-14] MEDS ORDERED: Cymbalta 30 MG Capsule PO SCH (12:00)
--- NOTE | 2020-08-14 12:03 | PCM.NOTE ---
Date and Time: 08/14/20 1203 OBJECTIVE DATA Vital Signs: Vital Signs - 24 hr Temp Pulse Resp BP Pulse Ox 08/14/20 07:32 98.5 F 75 16 145/62 96 08/14/20 06:45 87 26 H 94 L 08/14/20 04:00 98.8 F 73 24 142/61 92 L 08/14/20 00:00 99.1 F 71 16 129/60 93 L 08/13/20 20:35 96 H 18 94 L 08/13/20 20:00 98.6 F 91 H 14 138/69 96 08/13/20 16:30 97.7 F 107 H 18 134/73 98 Oxygen-Last 24 hours Oxygen Flowrate (L/min)-RT 4 Oxygen Flowrate (L/min)-RT 4 Oxygen Flowrate (L/min)-RT 2 Oxygen Flowrate (L/min)-RT 2 Pain Assessment - Last Documented Pain Intensity 0 Intake and Output: Intake & Output 08/12/20 08/13/20 08/14/20 08/15/20 11:59 11:59 11:59 11:59 Intake Total 1430 Output Total 500 Balance 930 Weight 78.8 kg Lab Results: Lab Results-Last 24 Hours 08/13/20 08/13/20 08/13/20 Range/Units 16:25 16:35 16:50 WBC 12.2 H (4.0-10.5) K/mm3 RBC 4.01 L (4.1-5.4) M/mm3 Hgb 10.9 L (12.0-16.0) gm/dl Hct 35.9 (35-47) % MCV 89.5 (78-100) fl MCH 27.2 (26-32) pg MCHC 30.4 L (32-36) g/dl RDW 14.4 H (11.5-14.0) % Plt Count 287 (150-450) K/mm3 MPV 9.5 (7.5-11.0) fl Gran % 84.1 H (36.0-66.0) % Eos # (Auto) 0.24 (0-0.5) Absolute Lymphs (auto) 0.89 L (1.0-4.6) Absolute Monos (auto) 0.78 (0.0-1.3) Lymphocytes % 7.3 L (24.0-44.0) % Monocytes % 6.4 (0.0-12.0) % Eosinophils % 2.0 (0.00-5.0) % Basophils % 0.2 (0.0-0.4) % Absolute Granulocytes 10.23 H (1.4-6.9) Basophils # 0.03 (0-0.4) Sodium (137-145) mmol/L Potassium (3.5-5.1) mmol/L Chloride (98-107) mmol/L Carbon Dioxide (22-30) mmol/L Anion Gap (5-15) MEQ/L BUN (7-17) mg/dL Creatinine (0.52-1.04) mg/dL Estimated GFR ML/MIN Glucose (74-106) mg/dL POC Glucometer 189 H (74 to 106) mg/dL Hemoglobin A1c (4.5-6.0) % Calcium (8.4-10.2) mg/dL Magnesium (1.6-2.3) mg/dL Total Bilirubin (0.2-1.3) mg/dL AST (14-36) U/L ALT (0-35) U/L Alkaline Phosphatase (38-126) U/L Troponin I (0.000-0.034) ng/mL NT-Pro-B Natriuret Pep (0-1800) pg/mL Serum Total Protein (6.3-8.2) g/dL Albumin (3.5-5.0) g/dL Urine Color (YELLOW) Urine Appearance (CLEAR) Urine pH (5-6) Ur Specific Blanchard (1.005-1.025) Urine Protein (Negative) Urine Ketones (NEGATIVE) Urine Blood (0-5) Roly/ul Urine Nitrite (NEGATIVE) Urine Bilirubin (NEGATIVE) Urine Urobilinogen (0-1) mg/dL Ur Leukocyte Esterase (NEGATIVE) Urine WBC (Auto) (0-5) /HPF Urine RBC (Auto) (0-2) /HPF U Hyaline Cast (Auto) (0-2) /LPF U Epithel Cells (Auto) (FEW) /HPF Urine Bacteria (Auto) (NEGATIVE) /HPF Urine Mucus (Auto) (NEGATIVE) /HPF Urine Culture Reflexed (NO) Urine Glucose (NEGATIVE) mg/dL Influenza Type A Ag NEGATIVE (NEGATIVE) Influenza Type B Ag NEGATIVE (NEGATIVE) RSV (PCR) NEGATIVE (Negative) SARS-CoV-2 (PCR) NEGATIVE (NEGATIVE) 08/13/20 08/13/20 08/13/20 Range/Units 16:50 17:05 17:37 WBC (4.0-10.5) K/mm3 RBC (4.1-5.4) M/mm3 Hgb (12.0-16.0) gm/dl Hct (35-47) % MCV (78-100) fl MCH (26-32) pg MCHC (32-36) g/dl RDW (11.5-14.0) % Plt Count (150-450) K/mm3 MPV (7.5-11.0) fl Gran % (36.0-66.0) % Eos # (Auto) (0-0.5) Absolute Lymphs (auto) (1.0-4.6) Absolute Monos (auto) (0.0-1.3) Lymphocytes % (24.0-44.0) % Monocytes % (0.0-12.0) % Eosinophils % (0.00-5.0) % Basophils % (0.0-0.4) % Absolute Granulocytes (1.4-6.9) Basophils # (0-0.4) Sodium 137 (137-145) mmol/L Potassium 4.5 (3.5-5.1) mmol/L Chloride 93 L (98-107) mmol/L Carbon Dioxide 39 H (22-30) mmol/L Anion Gap 9.3 (5-15) MEQ/L BUN 28 H (7-17) mg/dL Creatinine 1.51 H (0.52-1.04) mg/dL Estimated GFR 35.2 ML/MIN Glucose 180 H (74-106) mg/dL POC Glucometer (74 to 106) mg/dL Hemoglobin A1c 7.02 H (4.5-6.0) % Calcium 9.7 (8.4-10.2) mg/dL Magnesium (1.6-2.3) mg/dL Total Bilirubin 0.80 (0.2-1.3) mg/dL AST 16 (14-36) U/L ALT 13 (0-35) U/L Alkaline Phosphatase 81 (38-126) U/L Troponin I < 0.012 (0.000-0.034) ng/mL NT-Pro-B Natriuret Pep 3360 H (0-1800) pg/mL Serum Total Protein 6.9 (6.3-8.2) g/dL Albumin 4.1 (3.5-5.0) g/dL Urine Color YELLOW (YELLOW) Urine Appearance CLEAR (CLEAR) Urine pH 5.0 (5-6) Ur Specific Blanchard 1.010 (1.005-1.025) Urine Protein NEGATIVE (Negative) Urine Ketones NEGATIVE (NEGATIVE) Urine Blood NEGATIVE (0-5) Roly/ul Urine Nitrite NEGATIVE (NEGATIVE) Urine Bilirubin NEGATIVE (NEGATIVE) Urine Urobilinogen NEGATIVE (0-1) mg/dL Ur Leukocyte Esterase NEGATIVE (NEGATIVE) Urine WBC (Auto) 0-2 (0-5) /HPF Urine RBC (Auto) 0-2 (0-2) /HPF U Hyaline Cast (Auto) 11-25 (0-2) /LPF U Epithel Cells (Auto) RARE (FEW) /HPF Urine Bacteria (Auto) NONE (NEGATIVE) /HPF Urine Mucus (Auto) SLIGHT (NEGATIVE) /HPF Urine Culture Reflexed NO (NO) Urine Glucose NEGATIVE (NEGATIVE) mg/dL Influenza Type A Ag (NEGATIVE) Influenza Type B Ag (NEGATIVE) RSV (PCR) (Negative) SARS-CoV-2 (PCR) (NEGATIVE) 08/13/20 08/14/20 08/14/20 Range/Units 21:27 04:42 04:42 WBC 11.9 H (4.0-10.5) K/mm3 RBC 3.66 L (4.1-5.4) M/mm3 Hgb 9.9 L (12.0-16.0) gm/dl Hct 33.0 L (35-47) % MCV 90.2 (78-100) fl MCH 27.0 (26-32) pg MCHC 30.0 L (32-36) g/dl RDW 14.4 H (11.5-14.0) % Plt Count 266 (150-450) K/mm3 MPV 9.3 (7.5-11.0) fl Gran % 82.5 H (36.0-66.0) % Eos # (Auto) 0.27 (0-0.5) Absolute Lymphs (auto) 0.98 L (1.0-4.6) Absolute Monos (auto) 0.80 (0.0-1.3) Lymphocytes % 8.2 L (24.0-44.0) % Monocytes % 6.7 (0.0-12.0) % Eosinophils % 2.3 (0.00-5.0) % Basophils % 0.3 (0.0-0.4) % Absolute Granulocytes 9.85 H (1.4-6.9) Basophils # 0.04 (0-0.4) Sodium 135 L (137-145) mmol/L Potassium 4.1 (3.5-5.1) mmol/L Chloride 91 L (98-107) mmol/L Carbon Dioxide 38 H (22-30) mmol/L Anion Gap 10.9 (5-15) MEQ/L BUN 33 H (7-17) mg/dL Creatinine 1.53 H (0.52-1.04) mg/dL Estimated GFR 34.7 ML/MIN Glucose 143 H (74-106) mg/dL POC Glucometer 185 H (74 to 106) mg/dL Hemoglobin A1c (4.5-6.0) % Calcium 9.0 (8.4-10.2) mg/dL Magnesium (1.6-2.3) mg/dL Total Bilirubin (0.2-1.3) mg/dL AST (14-36) U/L ALT (0-35) U/L Alkaline Phosphatase (38-126) U/L Troponin I (0.000-0.034) ng/mL NT-Pro-B Natriuret Pep 2880 H (0-1800) pg/mL Serum Total Protein (6.3-8.2) g/dL Albumin (3.5-5.0) g/dL Urine Color (YELLOW) Urine Appearance (CLEAR) Urine pH (5-6) Ur Specific Blanchard (1.005-1.025) Urine Protein (Negative) Urine Ketones (NEGATIVE) Urine Blood (0-5) Roly/ul Urine Nitrite (NEGATIVE) Urine Bilirubin (NEGATIVE) Urine Urobilinogen (0-1) mg/dL Ur Leukocyte Esterase (NEGATIVE) Urine WBC (Auto) (0-5) /HPF Urine RBC (Auto) (0-2) /HPF U Hyaline Cast (Auto) (0-2) /LPF U Epithel Cells (Auto) (FEW) /HPF Urine Bacteria (Auto) (NEGATIVE) /HPF Urine Mucus (Auto) (NEGATIVE) /HPF Urine Culture Reflexed (NO) Urine Glucose (NEGATIVE) mg/dL Influenza Type A Ag (NEGATIVE) Influenza Type B Ag (NEGATIVE) RSV (PCR) (Negative) SARS-CoV-2 (PCR) (NEGATIVE) 08/14/20 08/14/20 Range/Units 04:42 07:11 WBC (4.0-10.5) K/mm3 RBC (4.1-5.4) M/mm3 Hgb (12.0-16.0) gm/dl Hct (35-47) % MCV (78-100) fl MCH (26-32) pg MCHC (32-36) g/dl RDW (11.5-14.0) % Plt Count (150-450) K/mm3 MPV (7.5-11.0) fl Gran % (36.0-66.0) % Eos # (Auto) (0-0.5) Absolute Lymphs (auto) (1.0-4.6) Absolute Monos (auto) (0.0-1.3) Lymphocytes % (24.0-44.0) % Monocytes % (0.0-12.0) % Eosinophils % (0.00-5.0) % Basophils % (0.0-0.4) % Absolute Granulocytes (1.4-6.9) Basophils # (0-0.4) Sodium (137-145) mmol/L Potassium (3.5-5.1) mmol/L Chloride (98-107) mmol/L Carbon Dioxide (22-30) mmol/L Anion Gap (5-15) MEQ/L BUN (7-17) mg/dL Creatinine (0.52-1.04) mg/dL Estimated GFR ML/MIN Glucose (74-106) mg/dL POC Glucometer 190 H (74 to 106) mg/dL Hemoglobin A1c (4.5-6.0) % Calcium (8.4-10.2) mg/dL Magnesium 2.1 (1.6-2.3) mg/dL Total Bilirubin (0.2-1.3) mg/dL AST (14-36) U/L ALT (0-35) U/L Alkaline Phosphatase (38-126) U/L Troponin I (0.000-0.034) ng/mL NT-Pro-B Natriuret Pep (0-1800) pg/mL Serum Total Protein (6.3-8.2) g/dL Albumin (3.5-5.0) g/dL Urine Color (YELLOW) Urine Appearance (CLEAR) Urine pH (5-6) Ur Specific Blanchard (1.005-1.025) Urine Protein (Negative) Urine Ketones (NEGATIVE) Urine Blood (0-5) Roly/ul Urine Nitrite (NEGATIVE) Urine Bilirubin (NEGATIVE) Urine Urobilinogen (0-1) mg/dL Ur Leukocyte Esterase (NEGATIVE) Urine WBC (Auto) (0-5) /HPF Urine RBC (Auto) (0-2) /HPF U Hyaline Cast (Auto) (0-2) /LPF U Epithel Cells (Auto) (FEW) /HPF Urine Bacteria (Auto) (NEGATIVE) /HPF Urine Mucus (Auto) (NEGATIVE) /HPF Urine Culture Reflexed (NO) Urine Glucose (NEGATIVE) mg/dL Influenza Type A Ag (NEGATIVE) Influenza Type B Ag (NEGATIVE) RSV (PCR) (Negative) SARS-CoV-2 (PCR) (NEGATIVE) Radiology Exams: Radiology Procedures Category Date Time Status CHEST 2 VIEWS (PA AND LAT) Stat Exams 08/13/20 17:46 Completed
[2020-08-14] MEDS: NORCO 5/325 MG PO PRN (14:46)
[2020-08-14] MEDS ORDERED: NON-FORMULARY ITEM (Cholecalciferol (Vitamin D3) [Vitamin D] 400 UNIT) PO SCH (17:00)
[2020-08-14] MEDS: NORVASC 5 MG PO SCH (17:11)
[2020-08-14] MEDS: ZOCOR 20MG PO SCH (17:11)
[2020-08-14] MEDS: MAG-OX 400 PO SCH (17:11)
[2020-08-14] MEDS: VITAMIN D PO SCH (17:11)
[2020-08-14] MEDS: Lantus Insulin SQ SCH (17:15)
[2020-08-14] MEDS ORDERED: PULMICORT 0.5 MG/2 ML RESPULES IH SCH (19:00)
[2020-08-14] MEDS: Spiriva 18 Mcg/Cap Inhaler IH SCH (19:53)
[2020-08-14] MEDS ORDERED: ROCEPHIN 1 Gm-D5w 50 ml Bag** 1 G/50 ML IVPB IV SCH (22:00)
[2020-08-14] MEDS ORDERED: Zithromax 500 MG/ 250 ML NaCl Premix 500 MG/250 ML IVPB IV SCH (22:00)
[2020-08-15] MEDS: Advair Hfa 230/21 Mcg COMMON CANISTER IH SCH ×2 (07:05→19:46)
[2020-08-15] MEDS: Novolin N SQ SCH ×2 (08:18→21:03)
[2020-08-15] MEDS: ZOFRAN ODT 4 MG PO PRN ×2 (09:29→17:47)
[2020-08-15] MEDS: Imdur 30 MG PO SCH (09:29)
[2020-08-15] MEDS: ELIQUIS 2.5 MG TABLET PO SCH ×2 (09:30→21:03)
[2020-08-15] MEDS: Colace 100 MG PO SCH ×2 (09:30→21:03)
[2020-08-15] MEDS: BUSPAR 5 MG PO SCH ×2 (09:30→21:02)
[2020-08-15] MEDS: Lopressor 25MG Tab PO SCH ×2 (09:30→21:03)
[2020-08-15] MEDS: NORCO 5/325 MG PO PRN (09:31)
--- NOTE | 2020-08-15 10:00 | PCM.NOTE ---
Date and Time: 08/15/2059 Subjective Assessment: 79 yr old female seen this am. Patient reports non productive cough. She reports SOB with ambulating to the bathroom. She denies swelling in her lower extremities. She is anxious to go home because her son is coming to visit on Wednesday. She reports that she is still not feeling well enough to go home. She r eports that she is on home oxygen at all times 2 L. Patient is reporting back pain this am. She was unable to sleep last night and would like some medication for sleep. - Review of Systems Constitutional: Weakness, No Fever Eyes: No Symptoms Ears, Nose, & Throat: No Symptoms Respiratory: Cough, Short Of Breath, No Wheezing Cardiac: No Chest Pain, No Edema, No Palpitations Abdominal/Gastrointestinal: Constipation (Needed Linzess from home and did not want PRN meds), No Abdominal Pain, No Nausea, No Vomiting, No Diarrhea Genitourinary Symptoms: No Symptoms Musculoskeletal: No Symptoms, Back Pain (Had kyphoplasty for fx in her back but still has chronic back pain) Skin: No Symptoms Neurological: No Symptoms Psychological: Anxiety Objective Exam General Appearance: mild distress, alert, obese, other (Patient appeared mildly unwell this am), No anxiety Neurologic Exam: alert, oriented x 3, cooperative, normal mood/affect Skin Exam: normal color, warm, dry, No rash Eye Exam: eyes nml inspection, No scleral icterus Ears, Nose, Throat Exam: moist mucous membranes Neck Exam: normal inspection Respiratory Exam: crackles/rales, wheezing, other (Patient gets winded at times when speaking), No normal breath sounds, No lungs clear Cardiovascular Exam: regular rate/rhythm, normal heart sounds, No murmur, No friction rub, No gallop Gastrointestinal/Abdomen Exam: soft, normal bowel sounds, No tenderness, No distention, No mass, No guarding Extremity Exam: normal inspection, pedal edema (mild), No swelling, No tenderness Pelvic Exam: deferred Rectal Exam: deferred OBJECTIVE DATA Vital Signs: Vital Signs - 24 hr Temp Pulse Resp BP Pulse Ox 08/15/20 08:00 98.2 F 66 17 125/57 91 L 08/15/20 07:15 93 L 08/15/20 07:08 79 18 95 08/15/20 03:46 98.0 F 80 18 129/59 92 L 08/15/20 00:00 98.9 F 80 18 115/59 94 L 08/14/20 20:00 98.6 F 73 18 132/61 94 L 08/14/20 19:53 73 18 90 L 08/14/20 16:00 98.4 F 79 18 127/58 95 08/14/20 13:58 92 L 08/14/20 12:00 98.2 F 69 18 118/58 97 Oxygen-Last 24 hours Oxygen Flowrate (L/min)-RT 3 Oxygen Flowrate (L/min)-RT 3 Oxygen Flowrate (L/min)-RT 3 Pain Assessment - Last Documented Pain Intensity 6 Pain Scale Used 0-10 Pain Scale Intake and Output: Intake & Output 08/12/20 08/13/20 08/14/20 08/15/20 11:59 11:59 11:59 11:59 Intake Total 1430 1797 Output Total 500 1050 Balance 930 747 Weight 78.8 kg Lab Results: Lab Results-Last 24 Hours 08/14/20 08/14/20 08/14/20 Range/Units 11:34 16:20 20:16 POC Glucometer 170 H 167 H 225 H (74 to 106) mg/dL 08/15/20 Range/Units 07:10 POC Glucometer 95 (74 to 106) mg/dL Radiology Exams: Radiology Procedures Category Date Time Status CHEST 2 VIEWS (PA AND LAT) Stat Exams 08/13/20 17:46 Completed Assessment/Plan (1) CHF exacerbation Current Visit: No Status: Acute Qualifiers: Heart failure type: diastolic Qualified Code(s): I50.33 - Acute on chronic diastolic (congestive) heart failure Assessment & Plan: Patient had elevated BNP and swelling upon admission. She was given lasix x2 doses but this is causing mild CHARAN. Will continue to monitor I and O and daily weights. Repeat CXR ordered for am.Patient's spirinolactone was being held per nephro as outpatient Code(s): I50.9 - HEART FAILURE, UNSPECIFIED (2) COPD with exacerbation Current Visit: No Status: Acute Assessment & Plan: Patient is on her usual home meds with albuterol nebs. She is on 2 liters of ox ygen. She has been on rocephin and azith. Due to worsening cough, she was started on mucinex and antibiotics were switched to zosyn. She will get repeat CXR in am. Patient was started on steroids today. Code(s): J44.1 - CHRONIC OBSTRUCTIVE PULMONARY DISEASE W (ACUTE) EXACERBATION (3) Pneumonia Current Visit: No Status: Acute Qualifiers: Pneumonia type: due to unspecified organism Laterality: bilateral Lung location: unspecified part of lung Qualified Code(s): J18.9 - Pneumonia, unspecified organism Assessment & Plan: Patient did not appear to be responding to inital antibiotic therapy. She was switched to zosyn today. Will continue to monitor symptoms for improvement. She will get repeat cxr in am. Code(s): J18.9 - PNEUMONIA, UNSPECIFIED ORGANISM (4) Anxiety Current Visit: No Status: Chronic Assessment & Plan: Will continue on routine prn meds for anxiety Code(s): F41.9 - ANXIETY DISORDER, UNSPECIFIED (5) Atrial fibrillation Current Visit: No Status: Chronic Qualifiers: Atrial fibrillation type: paroxysmal Qualified Code(s): I48.0 - Paroxysmal atrial fibrillation Assessment & Plan: Will continue on routine home meds. Code(s): I48.91 - UNSPECIFIED ATRIAL FIBRILLATION (6) Chronic back pain Current Visit: No Status: Chronic Assessment & Plan: Patient is on PRN meds for chronic back pain. Code(s): M54.9 - DORSALGIA, UNSPECIFIED; G89.29 - OTHER CHRONIC PAIN (7) Diabetes mellitus Current Visit: No Status: Chronic Qualifiers: Diabetes mellitus type: type 2 Diabetes mellitus long-term insulin use: without long-term use Diabetes mellitus complication status: without complication Qualified Code(s): E11.9 - Type 2 diabetes mellitus without complications Assessment & Plan: Diabetic diet. ACCUCHECKS ACHS. Will continue on insulin as needed Code(s): E11.9 - TYPE 2 DIABETES MELLITUS WITHOUT COMPLICATIONS (8) Renal insufficiency Current Visit: No Status: Chronic Assessment & Plan: Patient is requiring diuresis due to CHF exacerbation however she is developing CHARAN on CKD. May need to consult nephrology in am. Will continue to trend BMP (9) Insomnia Current Visit: Yes Status: Acute Assessment & Plan: Patient is reporting not being able to sleep in the hospital. Will have patient take her pain med as needed during the day and take .5 mg of xanax at bedtime for sleep. Code(s): G47.00 - INSOMNIA, UNSPECIFIED (10) Constipation Current Visit: Yes Status: Acute Assessment & Plan: Patient wanted to take her linzess. She was offered additional medication but she declined. Code(s): K59.00 - CONSTIPATION, UNSPECIFIED
[2020-08-15] MEDS: xanAX 0.25 MG PO PRN (10:59)
[2020-08-15] MEDS ORDERED: PROVENTIL 2.5 MG/3 ML NEB IH ONE (11:02)
[2020-08-15] MEDS: PROVENTIL 2.5 MG/3 ML NEB IH PRN (11:18)
[2020-08-15] MEDS: ZYLOPRIM 100 MG PO SCH (11:51)
[2020-08-15] MEDS: Aldactone 25 MG PO SCH (11:52)
[2020-08-15] MEDS: Protonix 40MG Tablet PO SCH (11:52)
[2020-08-15] MEDS: Mucinex 600MG ER Tabs PO SCH ×2 (11:52→21:03)
[2020-08-15] MEDS: Cymbalta 30 MG Capsule PO SCH (11:52)
[2020-08-15 15:36] LABS: Absolute Neutrophil Ct (ANC) 10.47 (1.4-6.9); BASOPHIL % 0.2 % (0.0-0.4); Basophil (Absolute #) 0.03 (0-0.4); Eosinophil % 1.8 % (0.00-5.0); Eosinophil (Absolute #) 0.22 (0-0.5); Hematocrit 33.9 % (35-47); Hemoglobin 10.2 gm/dl (12.0-16.0); Lymphocyte (Absolute #) 0.85 (1.0-4.6); Lymphocytes % 6.9 % (24.0-44.0); Mean Cell Volume 89.9 fl (78-100); Mean Corpuscular Hemoglobin 27.1 pg (26-32); Mean Corpuscular Hgb Concent. 30.1 g/dl (32-36); Mean Platelet Volume 9.5 fl (7.5-11.0); Monocyte (Absolute #) 0.79 (0.0-1.3); Monocytes % 6.4 % (0.0-12.0); Neutrophil % 84.7 % (36.0-66.0); Platelet Count 300 K/mm3 (150-450); Red Blood Count 3.77 M/mm3 (4.1-5.4); Red Cell Distribution Width 14.4 % (11.5-14.0); White Blood Count 12.4 K/mm3 (4.0-10.5)
[2020-08-15 16:30] LABS: ALBUMIN 3.7 g/dL (3.5-5.0); ANION GAP 10.7 MEQ/L (5-15); BILIRUBIN,TOTAL 0.7 mg/dL (0.2-1.3); Calcium 8.8 mg/dL (8.4-10.2); Creatinine 1 2.13 mg/dL (0.52-1.04); EST GLOMERULAR FILTRATION RATE 23.7 ML/MIN; Potassium 4.5 mmol/L (3.5-5.1); Total Protein 6.4 g/dL (6.3-8.2)
[2020-08-15] MEDS: Lantus Insulin SQ SCH (17:30)
[2020-08-15] MEDS: VITAMIN D PO SCH (17:30)
[2020-08-15] MEDS: NORVASC 5 MG PO SCH (17:30)
[2020-08-15] MEDS: MAG-OX 400 PO SCH (17:30)
[2020-08-15] MEDS: PATIENT OWN MEDICATION PO SCH (17:30)
[2020-08-15] MEDS: ZOCOR 20MG PO SCH (17:34)
[2020-08-15] MEDS: solu-MEDROL 40 MG IV SCH (17:35)
[2020-08-15] MEDS ORDERED: Lasix 20 MG/2 ML ONE (17:45)
[2020-08-15] MEDS ORDERED: Klor Con 10 MEQ PO ONE (18:00)
[2020-08-15] MEDS ORDERED: Zosyn 3.375 GM Vial 3.375 GM in Sodium Chloride 100ML MINI-BAG PLUS 100 ML IV SCH (18:00)
[2020-08-15] MEDS: Zosyn 2.25 GM 2.25 GM in Sodium Chloride 100ML MINI-BAG PLUS 100 ML IV SCH (18:08)
[2020-08-15] MEDS: Spiriva 18 Mcg/Cap Inhaler IH SCH (19:45)
[2020-08-15] MEDS ORDERED: xanAX 0.5 MG PO SCH (22:00)
[2020-08-16] MEDS: Zosyn 2.25 GM 2.25 GM in Sodium Chloride 100ML MINI-BAG PLUS 100 ML IV SCH ×3 (01:10→18:37)
[2020-08-16] MEDS: solu-MEDROL 40 MG IV SCH ×4 (01:10→18:37)
[2020-08-16 05:24] LABS: Absolute Neutrophil Ct (ANC) 12.38 (1.4-6.9); BASOPHIL % 0.2 % (0.0-0.4); Basophil (Absolute #) 0.02 (0-0.4); Eosinophil % 0.1 % (0.00-5.0); Eosinophil (Absolute #) 0.01 (0-0.5); Hematocrit 31.1 % (35-47); Hemoglobin 9.3 gm/dl (12.0-16.0); Lymphocyte (Absolute #) 0.35 (1.0-4.6); Lymphocytes % 2.7 % (24.0-44.0); Mean Cell Volume 90.1 fl (78-100); Mean Corpuscular Hgb Concent. 29.9 g/dl (32-36); Mean Platelet Volume 9.6 fl (7.5-11.0); Monocyte (Absolute #) 0.07 (0.0-1.3); Monocytes % 0.5 % (0.0-12.0); Neutrophil % 96.5 % (36.0-66.0); Platelet Count 274 K/mm3 (150-450); Red Blood Count 3.45 M/mm3 (4.1-5.4); Red Cell Distribution Width 14.1 % (11.5-14.0); White Blood Count 12.8 K/mm3 (4.0-10.5)
[2020-08-16 05:50] LABS: ANION GAP 12.1 MEQ/L (5-15); Calcium 8.6 mg/dL (8.4-10.2); Creatinine 1 2.52 mg/dL (0.52-1.04); EST GLOMERULAR FILTRATION RATE 19.5 ML/MIN
[2020-08-16 06:05] LABS: Potassium 5.7 mmol/L (3.5-5.1)
[2020-08-16] MEDS: Advair Hfa 230/21 Mcg COMMON CANISTER IH SCH ×2 (06:59→19:18)
[2020-08-16] MEDS: Novolin N SQ SCH (07:29)
[2020-08-16] MEDS: Lopressor 25MG Tab PO SCH (09:14)
[2020-08-16] MEDS: ELIQUIS 2.5 MG TABLET PO SCH (09:14)
[2020-08-16] MEDS: Mucinex 600MG ER Tabs PO SCH (09:15)
[2020-08-16] MEDS: BUSPAR 5 MG PO SCH (09:15)
[2020-08-16] MEDS: Colace 100 MG PO SCH (09:15)
[2020-08-16] MEDS: Imdur 30 MG PO SCH (09:15)
--- NOTE | 2020-08-16 09:28 | XRAY ---
Indication: Short of breath 6 days. Comparison: August 13, 2020. PA/lateral chest demonstrates new right middle lobe and stable left base infiltrate versus atelectasis. Heart borderline enlarged without large effusion. Stable osteopenia, bony degenerative changes, and thoracolumbar kyphoplasty.
[2020-08-16] MEDS: Cymbalta 30 MG Capsule PO SCH (12:04)
[2020-08-16] MEDS: Protonix 40MG Tablet PO SCH (12:04)
[2020-08-16] MEDS: Aldactone 25 MG PO SCH (12:05)
[2020-08-16] MEDS: ZYLOPRIM 100 MG PO SCH (12:05)
[2020-08-16] MEDS: HUMALOG SQ PRN ×2 (12:05→17:25)
[2020-08-16 16:31] VITALS: O2SAT 96
[2020-08-16] MEDS: NORVASC 5 MG PO SCH (17:18)
[2020-08-16] MEDS: ZOCOR 20MG PO SCH (17:19)
[2020-08-16] MEDS: VITAMIN D PO SCH (17:20)
[2020-08-16] MEDS: MAG-OX 400 PO SCH (17:21)
[2020-08-16] MEDS: PATIENT OWN MEDICATION PO SCH (17:22)
[2020-08-16] MEDS: Lantus Insulin SQ SCH (17:24)
--- NOTE | 2020-08-16 17:27 | PCM.NOTE ---
Date and Time: 08/16/20 1724 Subjective Assessment: Patient states breathing is better and legs are less swollen but renal function is worse. BUN/[employer] today is 57/2.52 (was 28/1.5 on admission 08/13/20)and BNP is 4620 (was 3360 on admission). Dr Quezada follows CKD ,HTN ,CHF. Dr Dorcas Marcos is her PCP at [facility]. Over the past couple of weeks patient has had increase in edema and dyspnea. As outpatient Bumex was increased with some improvement but edema and dyspnea reoccurred and patient was admitted per Dr Marcos who felt patient also with experiencing exacerbation of COPD. . - Review of Systems Constitutional: Weakness Eyes: No Symptoms Ears, Nose, & Throat: No Symptoms Respiratory: Cough, Short Of Breath Cardiac: Edema Abdominal/Gastrointestinal: No Symptoms Genitourinary Symptoms: No Symptoms Musculoskeletal: Arthralgias Skin: Rash (right forearm) Psychological: No Symptoms Endocrine: Other (DM2 controlled) Hematologic/Lymphatic: Anemia Immunological/Allergic: No Symptoms Objective Exam General Appearance: no apparent distress Neurologic Exam: alert, oriented x 3, cooperative, normal mood/affect Skin Exam: warm, dry, pale Eye Exam: eyes nml inspection Ears, Nose, Throat Exam: normal ENT inspection Neck Exam: normal inspection Respiratory Exam: rhonchi (right mid/upper) Cardiovascular Exam: regular rate/rhythm, edema (1-2+ R>L) Extremity Exam: other (DJD,neg homans) Back Exam: other (no CVA tenderness) Pelvic Exam: deferred Rectal Exam: deferred OBJECTIVE DATA Vital Signs: Vital Signs - 24 hr Temp Pulse Resp BP Pulse Ox 08/16/20 16:00 98.2 F 70 19 146/68 96 08/16/20 11:57 98.1 F 70 20 123/81 97 08/16/20 11:00 93 L 08/16/20 09:10 97 08/16/20 08:00 97.5 F 65 20 127/58 96 08/16/20 07:03 73 18 97 08/16/20 04:00 97.7 F 61 18 137/64 95 08/16/20 00:00 97.1 F 64 18 134/59 95 08/15/20 19:49 97.8 F 73 18 132/66 08/15/20 19:46 66 18 93 L Oxygen-Last 24 hours Oxygen Flowrate (L/min)-RT 4 Oxygen Flowrate (L/min)-RT 4 Pain Assessment - Last Documented Pain Intensity 0 Pain Scale Used 0-10 Pain Scale Intake and Output: Intake & Output 08/14/20 08/15/20 08/16/20 08/17/20 11:59 11:59 11:59 11:59 Intake Total 1430 1797 1033 120 Output Total 500 1050 400 Balance 930 489 633 120 Weight 78.8 kg 78.8 kg Lab Results: Lab Results-Last 24 Hours 08/15/20 08/16/20 08/16/20 Range/Units 20:39 05:14 05:14 WBC 12.8 H (4.0-10.5) K/mm3 RBC 3.45 L (4.1-5.4) M/mm3 Hgb 9.3 L (12.0-16.0) gm/dl Hct 31.1 L (35-47) % MCV 90.1 (78-100) fl MCH 27.0 (26-32) pg MCHC 29.9 L (32-36) g/dl RDW 14.1 H (11.5-14.0) % Plt Count 274 (150-450) K/mm3 MPV 9.6 (7.5-11.0) fl Gran % 96.5 H (36.0-66.0) % Eos # (Auto) 0.01 (0-0.5) Absolute Lymphs (auto) 0.35 L (1.0-4.6) Absolute Monos (auto) 0.07 (0.0-1.3) Lymphocytes % 2.7 L (24.0-44.0) % Monocytes % 0.5 (0.0-12.0) % Eosinophils % 0.1 (0.00-5.0) % Basophils % 0.2 (0.0-0.4) % Absolute Granulocytes 12.38 H (1.4-6.9) Basophils # 0.02 (0-0.4) Sodium 130 L (137-145) mmol/L Potassium 5.7 H D (3.5-5.1) mmol/L Chloride 89 L (98-107) mmol/L Carbon Dioxide 34 H (22-30) mmol/L Anion Gap 12.1 (5-15) MEQ/L BUN 57 H (7-17) mg/dL Creatinine 2.52 H (0.52-1.04) mg/dL Estimated GFR 19.5 ML/MIN Glucose 213 H (74-106) mg/dL POC Glucometer 168 H (74 to 106) mg/dL Calcium 8.6 (8.4-10.2) mg/dL NT-Pro-B Natriuret Pep 4620 H (0-1800) pg/mL Slides for Path Review 08/16/20 08/16/20 08/16/20 Range/Units 06:38 10:38 15:32 WBC (4.0-10.5) K/mm3 RBC (4.1-5.4) M/mm3 Hgb (12.0-16.0) gm/dl Hct (35-47) % MCV (78-100) fl MCH (26-32) pg MCHC (32-36) g/dl RDW (11.5-14.0) % Plt Count (150-450) K/mm3 MPV (7.5-11.0) fl Gran % (36.0-66.0) % Eos # (Auto) (0-0.5) Absolute Lymphs (auto) (1.0-4.6) Absolute Monos (auto) (0.0-1.3) Lymphocytes % (24.0-44.0) % Monocytes % (0.0-12.0) % Eosinophils % (0.00-5.0) % Basophils % (0.0-0.4) % Absolute Granulocytes (1.4-6.9) Basophils # (0-0.4) Sodium (137-145) mmol/L Potassium (3.5-5.1) mmol/L Chloride (98-107) mmol/L Carbon Dioxide (22-30) mmol/L Anion Gap (5-15) MEQ/L BUN (7-17) mg/dL Creatinine (0.52-1.04) mg/dL Estimated GFR ML/MIN Glucose (74-106) mg/dL POC Glucometer 187 H 338 H 319 H (74 to 106) mg/dL Calcium (8.4-10.2) mg/dL NT-Pro-B Natriuret Pep (0-1800) pg/mL Slides for Path Review Radiology Exams: Radiology Procedures Category Date Time Status CHEST 2 VIEWS (PA AND LAT) Routine Exams 08/16/20 08:00 Completed Multi-Disciplinary Progress Notes: Multi-Disciplinary Progress Notes 08/16/20 14:06 Case Management Note by Ariana Edwards NO NEW NEEDS IDENTIFIED FOR DC AT THIS TIME. SHE ALREADY HAS OXYGEN AT 2L/NC AT HOME AND A TRELEGY MACHINE SHE IS SUPPOSED TO WEAR AT NIGHT. Initialized on 08/16/20 14:06 - END OF NOTE Assessment/Plan (1) ARF (acute renal failure) Current Visit: Yes Status: Acute Assessment & Plan: Dr Tse agrees to transfer patient to [facility],patient agrees. (2) CRF (chronic renal failure) Current Visit: Yes Status: Chronic Assessment & Plan: followed by Dr Quezada,worsening of edema x 2 weeks (3) CHF exacerbation Current Visit: No Status: Acute Qualifiers: Heart failure type: unspecified Code(s): I50.9 - HEART FAILURE, UNSPECIFIED (4) HTN (hypertension) Current Visit: Yes Status: Chronic Qualifiers: Hypertension type: essential hypertension Qualified Code(s): I10 - Essential (primary) hypertension Assessment & Plan: controlled since admission Code(s): I10 - ESSENTIAL (PRIMARY) HYPERTENSION (5) Diabetes mellitus, insulin dependent (IDDM), controlled Current Visit: Yes Status: Chronic Assessment & Plan: controlled , A1C=7.02% Code(s): OBZ2701 - (6) COPD (chronic obstructive pulmonary disease) Current Visit: No Status: Acute Assessment & Plan: improved on IV solumedrol and Zosyn (7) Gout Current Visit: Yes Status: Chronic Assessment & Plan: on Allopurinol 100mg Code(s): M10.9 - GOUT, UNSPECIFIED (8) Anemia Current Visit: No Status: Acute Qualifiers: Anemia type: unspecified type Qualified Code(s): D64.9 - Anemia, unspecified Code(s): D64.9 - ANEMIA, UNSPECIFIED
[2020-08-16] MEDS ORDERED: Lasix 20 MG/2 ML IV ONE (18:00)
--- NOTE | 2020-08-16 18:47 | PCM.NOTE ---
Date and Time: 08/16/201841 - Review of Systems Constitutional: Fatigue Eyes: No Symptoms Ears, Nose, & Throat: No Symptoms Respiratory: Cough, Short Of Breath Cardiac: Chest Pain (right lower anterior-improved), Edema Abdominal/Gastrointestinal: No Symptoms Genitourinary Symptoms: No Symptoms Musculoskeletal: Arthralgias (chronic) Skin: Other Neurological: Other (no focal changes) Psychological: No Symptoms Hematologic/Lymphatic: No Symptoms Objective Exam General Appearance: other (sitting at side of bed eating) Neurologic Exam: alert, oriented x 3, cooperative Skin Exam: normal color, warm, dry Eye Exam: eyes nml inspection Ears, Nose, Throat Exam: normal ENT inspection Neck Exam: normal inspection Respiratory Exam: rhonchi (right mid/upper,no wheeze) Gastrointestinal/Abdomen Exam: soft (nontender) Extremity Exam: other (edema 1-2+/4 right >left neg homans) Back Exam: other (no CVA tenderness) Rectal Exam: deferred OBJECTIVE DATA Vital Signs: Vital Signs - 24 hr Temp Pulse Resp BP Pulse Ox 08/16/20 16:00 98.2 F 70 19 146/68 96 08/16/20 11:57 98.1 F 70 20 123/81 97 08/16/20 11:00 93 L 08/16/20 09:10 97 08/16/20 08:00 97.5 F 65 20 127/58 96 08/16/20 07:03 73 18 97 08/16/20 04:00 97.7 F 61 18 137/64 95 08/16/20 00:00 97.1 F 64 18 134/59 95 08/15/20 19:49 97.8 F 73 18 132/66 08/15/20 19:46 66 18 93 L Oxygen-Last 24 hours Oxygen Flowrate (L/min)-RT 4 Oxygen Flowrate (L/min)-RT 4 Pain Assessment - Last Documented Pain Intensity 0 Pain Scale Used 0-10 Pain Scale Intake and Output: Intake & Output 08/14/20 08/15/20 08/16/20 08/17/20 11:59 11:59 11:59 11:59 Intake Total 1430 1797 1033 360 Output Total 500 1050 400 300 Balance 930 747 633 60 Weight 78.8 kg 78.8 kg Lab Results: Lab Results-Last 24 Hours 08/15/20 08/16/20 08/16/20 Range/Units 20:39 05:14 05:14 WBC 12.8 H (4.0-10.5) K/mm3 RBC 3.45 L (4.1-5.4) M/mm3 Hgb 9.3 L (12.0-16.0) gm/dl Hct 31.1 L (35-47) % MCV 90.1 (78-100) fl MCH 27.0 (26-32) pg MCHC 29.9 L (32-36) g/dl RDW 14.1 H (11.5-14.0) % Plt Count 274 (150-450) K/mm3 MPV 9.6 (7.5-11.0) fl Gran % 96.5 H (36.0-66.0) % Eos # (Auto) 0.01 (0-0.5) Absolute Lymphs (auto) 0.35 L (1.0-4.6) Absolute Monos (auto) 0.07 (0.0-1.3) Lymphocytes % 2.7 L (24.0-44.0) % Monocytes % 0.5 (0.0-12.0) % Eosinophils % 0.1 (0.00-5.0) % Basophils % 0.2 (0.0-0.4) % Absolute Granulocytes 12.38 H (1.4-6.9) Basophils # 0.02 (0-0.4) Sodium 130 L (137-145) mmol/L Potassium 5.7 H D (3.5-5.1) mmol/L Chloride 89 L (98-107) mmol/L Carbon Dioxide 34 H (22-30) mmol/L Anion Gap 12.1 (5-15) MEQ/L BUN 57 H (7-17) mg/dL Creatinine 2.52 H (0.52-1.04) mg/dL Estimated GFR 19.5 ML/MIN Glucose 213 H (74-106) mg/dL POC Glucometer 168 H (74 to 106) mg/dL Calcium 8.6 (8.4-10.2) mg/dL NT-Pro-B Natriuret Pep 4620 H (0-1800) pg/mL Slides for Path Review 08/16/20 08/16/20 08/16/20 Range/Units 06:38 10:38 15:32 WBC (4.0-10.5) K/mm3 RBC (4.1-5.4) M/mm3 Hgb (12.0-16.0) gm/dl Hct (35-47) % MCV (78-100) fl MCH (26-32) pg MCHC (32-36) g/dl RDW (11.5-14.0) % Plt Count (150-450) K/mm3 MPV (7.5-11.0) fl Gran % (36.0-66.0) % Eos # (Auto) (0-0.5) Absolute Lymphs (auto) (1.0-4.6) Absolute Monos (auto) (0.0-1.3) Lymphocytes % (24.0-44.0) % Monocytes % (0.0-12.0) % Eosinophils % (0.00-5.0) % Basophils % (0.0-0.4) % Absolute Granulocytes (1.4-6.9) Basophils # (0-0.4) Sodium (137-145) mmol/L Potassium (3.5-5.1) mmol/L Chloride (98-107) mmol/L Carbon Dioxide (22-30) mmol/L Anion Gap (5-15) MEQ/L BUN (7-17) mg/dL Creatinine (0.52-1.04) mg/dL Estimated GFR ML/MIN Glucose (74-106) mg/dL POC Glucometer 187 H 338 H 319 H (74 to 106) mg/dL Calcium (8.4-10.2) mg/dL NT-Pro-B Natriuret Pep (0-1800) pg/mL Slides for Path Review Radiology Exams: Radiology Procedures Category Date Time Status CHEST 2 VIEWS (PA AND LAT) Routine Exams 08/16/20 08:00 Completed Multi-Disciplinary Progress Notes: Multi-Disciplinary Progress Notes 08/16/20 14:06 Case Management Note by Ariana Edwards NO NEW NEEDS IDENTIFIED FOR DC AT THIS TIME. SHE ALREADY HAS OXYGEN AT 2L/NC AT HOME AND A TRELEGY MACHINE SHE IS SUPPOSED TO WEAR AT NIGHT. Initialized on 08/16/20 14:06 - END OF NOTE Assessment/Plan (1) ARF (acute renal failure) Current Visit: Yes Status: Acute Assessment & Plan: Spoke with Dr Tse,Manager Of Financial Planning who is covering for Dr Quezada and he advised transferring patient to [facility] under his care and patient agrees to transfer. (2) CRF (chronic renal failure) Current Visit: Yes Status: Chronic Assessment & Plan: required more diuretics preadmission for increased edema (3) CHF (congestive heart failure) Current Visit: No Status: Chronic Qualifiers: Assessment & Plan: BNP 4620 was 3360 on admission Code(s): I50.9 - HEART FAILURE, UNSPECIFIED (4) COPD with exacerbation Current Visit: No Status: Acute Assessment & Plan: improved on IV solumedrol and Pippercillin/Tazobactam Code(s): J44.1 - CHRONIC OBSTRUCTIVE PULMONARY DISEASE W (ACUTE) EXACERBATION (5) Diabetes mellitus, insulin dependent (IDDM), controlled Current Visit: Yes Status: Acute Assessment & Plan: A1C=7.02% Code(s): DQJ8066 - (6) HTN (hypertension) Current Visit: Yes Status: Chronic Qualifiers: Hypertension type: essential hypertension Qualified Code(s): I10 - Essential (primary) hypertension Assessment & Plan: controlled during this stay Code(s): I10 - ESSENTIAL (PRIMARY) HYPERTENSION (7) Gout Current Visit: Yes Status: Chronic Assessment & Plan: on Allopurinol 100mg Code(s): M10.9 - GOUT, UNSPECIFIED
--- NOTE | 2020-08-16 19:13 | PCM.DCORD ---
- [facility]charge [facility]position: [facility] Condition: Stable Prescriptions: Continue Simvastatin [Zocor] 40 mg PO 1700 Duloxetine HCl 30 mg [Cymbalta 30 MG Capsule] 30 mg PO 1200 Isosorbide Mononitrate 30 mg [Imdur 30 MG] 30 mg PO DAILY Bumetanide 1 mg [Bumex 1 mg] 1 mg PO DAILY Metoprolol Tartrate 25 mg [Lopressor 25MG Tab] 25 mg PO BID Alendronate Sodium 70 mg [Fosamax 70 MG] 70 mg PO WEEKLY Tiotropium [place] [Spiriva] 1 puff IH 1800 Magnesium 400 mg PO 1700 Cholecalciferol (Vitamin D3) [Vitamin D] 400 unit PO 1700 Budesonide/Formoterol Fumarate [Symbicort 160-4.5 Mcg Inhaler] 2 puff IH BID Amlodipine Besylate 10 mg PO 1700 Cyanocobalamin 1000 Mcg/ml [Cyanocobalamin B-12 1000 MCG/ML] 1,000 mcg IJ UD Linaclotide [Linzess] 290 mcg PO 1700 PANTOPRAZOLE 40 mg Tablet [Protonix 40MG Tablet] 40 mg PO 1200 Apixaban [Eliquis] 5 mg PO BID #0 allopurinoL [Allopurinol] 100 mg PO 1200 Buspirone HCl 5 mg PO BID Insulin Detemir [Levemir] 23 units SQ 1700 Insulin NPH Human Recom [Novolin N] 15 unit SQ BID Metformin HCl 500 mg PO 1200 Spironolactone 25 mg [Aldactone 25 MG] 25 mg PO 1200 Hydrocodone/APAP 5-325 Tab^^^ [[place] 5-325 Tablet^^^] 1 tab PO Q6HPRN PRN MDD 6 PRN Reason: Pain Ondansetron HCl [Zofran] 4 mg PO Q6HPRN PRN PRN Reason: Nausea Docusate Sodium 100 mg [Colace 100 MG] 1 cap PO DAILY PRN PRN Reason: Constipation Alprazolam 0.25 mg [xanAX 0.25 MG] 0.5 tab PO DAILY PRN PRN Reason: Anxiety Follow up with: LIBERTAD FIELDS [CONSULTING PHYSICIAN] - ADA CAST [Primary Care Provider] -
[2020-08-16] MEDS: Spiriva 18 Mcg/Cap Inhaler IH SCH (19:18)
[2020-08-16] MEDS: PROVENTIL 2.5 MG/3 ML NEB IH PRN (19:28)
[2020-08-16 21:11] VITALS: BP 126/60; PULSE 71
== END 2020-08-16 21:05 | disposition short-term general hospital (02) | DRG 190 ==
LOC: MED SURG 12:03 → OBSVTOIN 08-14 12:03
PROVIDERS: ADMIT Family Medicine; ATTEND Family Medicine
DX: J44.1 Chronic obstructive pulmonary disease with (acute) exacerbation (principal); J18.9 Pneumonia, unspecified organism; N17.9 Acute kidney failure, unspecified; I13.0 Hypertensive heart and chronic kidney disease with heart failure and stage 1 through stage 4 chronic kidney disease, or unspecified chronic kidney disease; E78.5 Hyperlipidemia, unspecified; K21.9 Gastro-esophageal reflux disease without esophagitis; I48.91 Unspecified atrial fibrillation; D64.9 Anemia, unspecified; I50.9 Heart failure, unspecified; G47.33 Obstructive sleep apnea (adult) (pediatric); F41.9 Anxiety disorder, unspecified; Z79.01 Long term (current) use of anticoagulants; M54.9 Dorsalgia, unspecified; G47.00 Insomnia, unspecified; K59.00 Constipation, unspecified; E11.22 Type 2 diabetes mellitus with diabetic chronic kidney disease; N18.9 Chronic kidney disease, unspecified
CPT/HCPCS: 0241U; 36415; 71046; 80048; 80053; 81001; 82947; 83036; 83735; 83880; 84484; 85025; 93005; 93268; 94640; 94760; J0456; J0696; J1817; J1940; J2543; J2920; J7609; Q0162; A9270-GY; G0378